=== PATIENT | female | born 1980 | race Caucasian/White ===

== ENCOUNTER → 2019-12-08 08:29 | Outpatient (CLI) | payer OTHER, SELFPAY ==
[2019-12-08 08:34] LABS: Lyme Ab Screen Interpretation REF LAB
[2019-12-08 10:40] LABS: ALB/GLOB Ratio 0.4 RATIO (0.9-2.4); AST(SGOT) 16 U/L (15-37); Alanine Aminotransfer ALT/SGPT 20 U/L (13-56); Albumin, Serum 2.7 g/dL (3.2-5.0); Alkaline Phosphatase 81 U/L (45-117); Anion Gap 3 (5-15); BUN 8 mg/dL (7-18); BUN/Creat Ratio 11.2 RATIO (10-20); Calcium,Total 8.2 mg/dL (8.5-10.1); Chloride 107 mmol/L (98-107); Creatinine, Serum 0.71 mg/dL (0.55-1.02); EST Glomerular Filtration Rate 97 mL/min (>60); Est Glom Filt Rate - Afr Amer 117 mL/min (>60); Globulin 6.5 g/dL (2.2-4.2); Glucose 103 mg/dL (74-106); Potassium 3.6 mmol/L (3.5-5.1); Protein, Total 9.2 g/dL (6.4-8.2); Sodium Level 139 mmol/L (136-145)
[2019-12-09 16:32] LABS: Lyme Scn Total Ab w/Rflx <0.91 ISR (0.00-0.90)
== END ==
PROVIDERS: PCP Family Medicine; Referring Provider Family Medicine; Visit Provider Family Medicine
DX: R68.89 Other general symptoms and signs (principal)
CPT/HCPCS: 36415; 80053; 86618

== ENCOUNTER → 2019-12-15 08:26 | Outpatient (CLI) | payer SELFPAY ==
[2019-12-16 16:08] LABS: PROEL- A/G Ratio 0.5 (0.7-1.7); PROEL- Albumin 2.8 g/dL (2.9-4.4); PROEL- Alpha-1 Globulin 0.2 g/dL (0.0-0.4); PROEL- Alpha-2 Globulin 0.6 g/dL (0.4-1.0); PROEL- Gamma Globulin 3.4 g/dL (0.4-1.8); PROEL- Globulin, Total 5.2 g/dL (2.2-3.9)
== END ==
PROVIDERS: PCP Family Medicine; Referring Provider Family Medicine; Visit Provider Family Medicine
DX: E88.09 Other disorders of plasma-protein metabolism, not elsewhere classified (principal)
CPT/HCPCS: 36415; 84165

== ENCOUNTER 2020-10-05 11:55 | Emergency (ER) | payer OTHER, SELFPAY ==
[2020-10-05 11:55] VITALS: BP 131/74; PULSE 89; RESP 16; TEMP 36.4; O2SAT 99; BMI 26.4
--- NOTE | 2020-10-05 12:08 | CT_ITS ---
STUDY: CTA CHEST REASON FOR EXAM: Female, 40 years old. Painful respirations, si/sx RLE DVT RADIATION DOSAGE (If Supplied By Facility): CTDIvol = ( 5.125 ) mGy, DLP = ( 254.96 ) mGycm TECHNIQUE: The examination was performed with the intravenous administration of IV 75mL Isovue-370. Post-processing of the angiographic images was performed, with multiplanar reformation and 3D reconstruction. Individualized dose optimization techniques were used for this CT. COMPARISON: None. FINDINGS: Bilateral axillary lymph nodes. Normal enhancement of the main pulmonary artery and right and left pulmonary arteries. Normal enhancement of the bilateral peripheral pulmonary arteries. There is no demonstrated pulmonary embolism. Normal thoracic aorta and visualized great vessels. There is no demonstrated aortic dissection. Normal heart and pericardium. Normal mediastinum. Normal hilar regions. Normal visualized trachea and bronchi. The lungs are well expanded. There is evidence of multiple small bilateral pulmonary nodules involving both lungs as well as multiple small cystic spaces throughout both lungs. The differential diagnosis should include leiomyomatosis of the lung. This is usually associated with patients that have uterine leiomyomas. Clinical correlation recommended. Normal pleura. Normal chest wall structures. There are mild degenerative changes of thoracic spine. Small hiatal hernia. CT/CTA Chest W/WO Contrast IMPRESSION: There is no evidence of pulmonary embolism. Multiple noncalcified nodules seen in both lungs with multiple small cystic spaces as described. Leiomyomatosis of the lung should be ruled out. Electronically Signed: Jet Reid MD at 13:52 EDT , Service support ,
--- NOTE | 2020-10-05 12:08 | EKG12_ITS ---
Test Reason : Blood Pressure : / mmHG Vent. Rate : 086 BPM Atrial Rate : 086 BPM P-R Int : 160 ms QRS Dur : 080 ms QT Int : 388 ms P-R-T Axes : 016 047 031 degrees QTc Int : 464 ms Normal sinus rhythm Normal ECG Confirmed by JOSY BOB, LORE ([id number]), commissioning editor ALLISON SEPULVEDA ([id number]) on 10/09/2020 1:57:40 PM Referred By: SHIVANI/KHADAR Confirmed By:LORE FERRIS MD
--- NOTE | 2020-10-05 12:08 | VDLE_ITS ---
Reason For Study: PAIN RIGHT GSV is normal. CFV is compressible, spontaneous, phasic, competent and demonstrates normal augmentation. FV is compressible, spontaneous, phasic, competent and demonstrates normal augmentation. POP V is compressible, spontaneous, phasic, competent and demonstrates normal augmentation. T/P Trunk is compressible. PTV is compressible. RT PerV is compressible. RT SSV is compressible. RT proximal-mid calf ASV are DILATED and partially compressible, consistent with superficial thrombophlebitis. VL/Venous Duplex US, Unilateral Interpretation Summary Deep veins of the right lower extremity are patent and compressible segmentally . There is no evidence of right lower extremity deep vein thrombosis. Valvular competence cely ears intact within the proximal deep venous system on the right . The right great saphenous vein a ppears patent and compressible segmentally. The right small saphenous vein is patent and compress ible. Acute superficial thrombophlebitis is noted in the accessory saphenous vein in the ri ght proximal/mid- calf. Ordering Physician: Jose Brooks Referring Physician: DARNELL XIONG Performed By: Mona Delatorre, ENMA, RVT
--- NOTE | 2020-10-05 12:09 | EDS_ITS ---
HPI History of Present Illness Chief Complaint: Lower Extremity Injury Informant: patient Onset/Context/Timing Onset: Weeks (3) Context: Gradual Onset Timing: Continuous Quality: aching Location: R lower leg, started in calf Current Severity: Moderate Maximum Severity: Moderate Worsened by: nothing Relieved by: nothing Associated Symptoms Associated Symptoms: redness in RLE and swelling; since last night, mild chest pain and sob Narrative Narrative: Pt started getting RLE pain in calf around 3 wks ago, followed by redness and swelling. She had a trip to and from [place] in the car, but that was just around 1 week ago, the symptoms started prior to that trip. No other long travel, immobilization, recent hospitalization, or surgery. No known history of DVT or PE. Seen by sent to the ER for further evaluation out of concern for DVT, PE, or both. Patient denies any palpitations, near syncope or lightheadedness, sweating, or radiation of the tightness in her upper chest which is mildly pleuritic. [facility] Medical History (Updated 10/05/20 @ 15:[address] Jose Brooks MD) Polyarthralgia Home Medications NK 10/05/20 [History Last Taken Unknown] Allergy/AdvReac Type Severity Reaction Status Date / Time No Known Allergies Allergy Unverified 10/05/20 11:57 Surgical History (Updated 10/05/20 @ 12:39 by Nhung Case) H/O tubal ligation Previous section Social History (Updated 10/05/20 @ 12:40 by Nhung Case) housing: house number of children: 7 Smoking Status: Never smoker do you feel safe at home: Yes ROS ROS ED Constitutional Constitutional ED: Denies chills or fever(s) Eyes Eyes: Denies change in vision or diplopia ENT ENT ED: Denies rhinorrhea or sore throat Cardiovascular Cardiovascular: Reports as per HPI and chest pain; Denies palpitations Respiratory/Chest Respiratory/Chest: Reports as per HPI and dyspnea; Denies cough Gastrointestinal Gastrointestinal: Denies abdominal pain, diarrhea or vomiting Genitourinary Genitourinary ED: Denies dysuria or hematuria Musculoskeletal Musculoskeletal: Reports as per HPI and extremity pain; Denies back pain or neck pain Integumentary Reports as per HPI and erythema; Denies abscess Neurologic Neurologic: Denies headache(s), paresthesias or weakness Psychiatric Psychiatric: Denies anxiety or suicidal thoughts EXAM Physical Exam Const Vital Signs: 10/05/20 11:55 10/05/20 13:56 Temperature 97.6 F L Temperature Source Temporal Pulse Rate 89 91 Respiratory Rate 16 18 Blood Pressure 131/74 H Blood Pressure Mean 93 Pulse Ox 99 100 Oxygen Delivery Method Room Air Positive well nourished and well developed General Appearance ED: well developed and NAD HEENT Reports moist mucous membranes normocephalic and atraumatic Eyes PERRL and EOMs intact bilaterally Neck full ROM and supple Resp normal respiratory effort and clear to auscultation bilaterally Cardio regular rate, regular rhythm and no murmurs Rate: tachycardic GI non-tender and non-distended Auscultation: normoactive bowel sounds Palpation: soft Back/Spine no CVA tenderness General Back: other FROM Extremity full ROM Extremity Narrative: Varicose veins are present right lower leg, some of which are erythematous and tender with possible cords. Erythema from foot up to calf, proximal borders are not well circumscribed, erythema is nontender. There is right calf tenderness and 1+ edema to the knee. The left lower extremity is normal without any of these findings. General Extremety ED: Negative for pulses abnormal General Extremity: Negative for pulses abnormal Neuro oriented x3, CN's II-XII intact bilaterally and no sensory deficits noted Sensorium / Orientation: awake and alert Motor Exam: strength 5/5 throughout Skin no rashes or lesions noted and no wounds MDM MDM MDM Narrative Medical decision making narrative: Ultrasound of the right lower extremity shows superficial venous thrombosis only, associated with varicosities of the venous system there, no DVT. Given her chest symptoms, I recommend continuing forward with CT angiography to rule out a DVT that traveled and was no longer visible on the ultrasound, patient was amenable this was negative, it also showed incidental possible leiomyomatosis of the lung which I discussed with the patient. It is unknown if that is related to her current discomfort. I think she is stable to be discharged home with supportive care with regards to the superficial venous thrombosis of her right lower extremity, and close outpatient follow-up, we discussed reasons to return and she is comfortable with that plan. Lab Data Attestation: I reviewed the patient's lab results. Labs: Laboratory Results - last 24 hr 10/05/20 10/05/20 12:17 12:17 WBC 3.4 L RBC 4.24 Hgb 11.4 L Hct 36.5 L MCV 86.1 MCH 26.9 L MCHC 31.2 L RDW Std Deviation 40.5 RDW Coeff of [place] 13.1 Plt Count 237 MPV 8.7 Immature Gran % (Auto) 0.300 Neut % (Auto) 61.2 Lymph % (Auto) 29.7 [place] % (Auto) 3.8 Eos % (Auto) 4.7 Baso % (Auto) 0.3 Absolute Neuts (auto) 2.1 Absolute Lymphs (auto) 1.01 Nucleated RBC % 0 Sodium 137 Potassium 3.3 L Chloride 105 Carbon Dioxide 27.0 Anion Gap 5 BUN 9 Creatinine 0.81 Estim Creat Clear Calc 77.14 Est GFR (MDRD) Af Amer 101 Est GFR (MDRD) Non-Af 84 BUN/Creatinine Ratio 11.1 Glucose 101 Calcium 8.3 L Troponin I < 0.015 Radiography Diagnostic Testing: Radiology Impression Chest CTA 10/05/20 12:08 IMPRESSION: There is no evidence of pulmonary embolism. Multiple noncalcified nodules seen in both lungs with multiple small cystic spaces as described. Leiomyomatosis of the lung should be ruled out. Electronically Signed: Jet Reid MD at 13:52 EDT , Service support , EKG Initial EKG: Attestation: I personally reviewed and interpreted this EKG as follows: Interpretation: Sinus Rhythm and No Acute Injury Pattern Comments: Normal EKG without tachycardia Prior EKG tracings: not available for review Discharge Plan Triage Chief Complaint: Lower Extremity Injury ED Provider: Jose Brooks Dx/Rx/DC Orders Clinical Impression: Chest pain, unspecified, Acute superficial venous thrombosis of right lower extremity, Leiomyomatosis Instructions: ED Chest Pain, Uncertain Cause, ED Endometriosis, ED Thrombophlebitis, Superficial Prescriptions: No Action NK RF: 0 Primary Care Provider: Wai Cleemns Referrals: Wai Clemens MD [Primary Care Provider] - 1 Week Disposition Disposition: Home, self care
[2020-10-05 12:28] LABS: Absolute Lymphocyte Count 1.01 X10^3/uL (0.83-4.51); Absolute Neutrophil Count 2.1 X10^3/uL (2.0-7.7); Basophil# 0.01 X10^3/uL; Basophil% 0.3 % (0-1); Eosinophil# 0.16 X10^3/uL; Eosinophils% 4.7 % (0-5); Hematocrit 36.5 % (37-47); Hemoglobin 11.4 g/dL (12.0-15.0); Lymphocyte # 1.01 X10^3/ul (0.83-4.51); Lymphocyte % 29.7 % (19-41); Mean Corp Hgb Conc 31.2 g/dL (32-36); Mean Corpuscular Hgb 26.9 pg (27.0-32.0); Mean Corpuscular Volume 86.1 fL (81-99); Mean Platelet Vol. 8.7 fl (6.2-12.0); Monocyte# 0.13 X10^3/uL; Monocyte% 3.8 % (0-10); NRBC Flagged by Analyzer 0 % (0-5); Neutrophil # 2.08 X10^3/uL (2.7-7.7); Neutrophil % 61.2 % (47-70); Platelet Count 237 K/mm3 (150-450); RBC Distribution Width CV 13.1 % (11.6-14.6); RBC Distribution Width SD 40.5 fl (35.1-43.9); Red Blood Count 4.24 M/mm3 (4.2-5.4); White Blood Count 3.4 K/mm3 (4.4-11.0)
[2020-10-05 12:42] LABS: Anion Gap 5 (5-15); BUN 9 mg/dL (7-18); BUN/Creat Ratio 11.1 RATIO (10-20); Calcium,Total 8.3 mg/dL (8.5-10.1); Chloride 105 mmol/L (98-107); Creatinine, Serum 0.81 mg/dL (0.55-1.02); EST Glomerular Filtration Rate 84 mL/min (>60); Est Glom Filt Rate - Afr Amer 101 mL/min (>60); Estimated Creatinine Clearance 77.14 ml/min; Glucose 101 mg/dL (74-106); Potassium 3.3 mmol/L (3.5-5.1); Sodium Level 137 mmol/L (136-145)
[2020-10-05 13:56] VITALS: PULSE 91; RESP 18; O2SAT 100
--- NOTE | 2020-10-05 14:34 | NURSING ---
NO OLD EKGS
== END 2020-10-05 15:47 | disposition home or self-care (01) ==
PROVIDERS: Emergency Provider Emergency Medicine; PCP Family Medicine
DX: I82.811 Embolism and thrombosis of superficial veins of right lower extremity (principal); R07.9 Chest pain, unspecified; D38.1 Neoplasm of uncertain behavior of trachea, bronchus and lung; I83.891 Varicose veins of right lower extremity with other complications
CPT/HCPCS: 71275; 80048; 84484; 85025; 93005; 93971; 96360; 96361; 99284; J7030; Q9967; A4216

== ENCOUNTER → 2022-03-11 | Outpatient (CLI) | payer SELFPAY ==
[2022-03-11 16:43] LABS: Absolute Lymphocyte Count 0.66 X10^3/uL (0.83-4.51); Absolute Neutrophil Count 2.5 X10^3/uL (2.0-7.7); Basophil# 0.01 X10^3/uL; Basophil% 0.3 % (0-1); Eosinophil# 0.11 X10^3/uL; Eosinophils% 3.2 % (0-5); Hematocrit 34.4 % (37-47); Lymphocyte # 0.66 X10^3/ul (0.83-4.51); Lymphocyte % 19.2 % (19-41); Mean Corpuscular Hgb 26.3 pg (27.0-32.0); Mean Corpuscular Volume 82.1 fL (81-99); Mean Platelet Vol. 9.5 fl (6.2-12.0); Monocyte# 0.14 X10^3/uL; Monocyte% 4.1 % (0-10); NRBC Flagged by Analyzer 0 % (0-5); Neutrophil % 72.9 % (47-70); Platelet Count 273 K/mm3 (150-450); RBC Distribution Width CV 13.9 % (11.6-14.6); RBC Distribution Width SD 41.1 fl (35.1-43.9); Red Blood Count 4.19 M/mm3 (4.2-5.4); White Blood Count 3.4 K/mm3 (4.4-11.0)
[2022-03-11 17:25] LABS: Erythrocyte Sedimentation Rate 98 mm/hr (0-30)
[2022-03-11 17:28] LABS: ALB/GLOB Ratio 0.4 RATIO (0.9-2.4); AST(SGOT) 38 U/L (15-37); Alanine Aminotransfer ALT/SGPT 47 U/L (13-56); Albumin, Serum 2.7 g/dL (3.2-5.0); Alkaline Phosphatase 102 U/L (45-117); Anion Gap 4 (5-15); BUN 13 mg/dL (7-18); BUN/Creat Ratio 15.3 RATIO (10-20); Calcium,Total 8.5 mg/dL (8.5-10.1); Chloride 105 mmol/L (98-107); Creatinine, Serum 0.85 mg/dL (0.55-1.02); EST Glomerular Filtration Rate 78 mL/min (>60); Est Glom Filt Rate - Afr Amer 95 mL/min (>60); Globulin 6.9 g/dL (2.2-4.2); Glucose 98 mg/dL (74-106); Potassium 3.4 mmol/L (3.5-5.1); Protein, Total 9.6 g/dL (6.4-8.2); Sodium Level 135 mmol/L (136-145)
[2022-03-13 15:08] LABS: Anti-Centromere B Ab <0.2 AI (0.0-0.9); Anti-Chromatin >8.0 AI (0.0-0.9); Anti-Jo <0.2 AI (0.0-0.9); Anti-Scleroderma-70 AB <0.2 AI (0.0-0.9); RNP Ab 1.4 AI (0.0-0.9); SJOGREN'S Anti-SS-A test > 8.0 AI (0.0-0.9); SJOGREN'S Anti-SS-B test > 8.0 AI (0.0-0.9); Smith Ab 0.6 AI (0.0-0.9)
[2022-03-13 16:10] LABS: Anti-dsDNA Ab 6 IU/mL (0-9)
[2022-03-14 15:08] LABS: Cytoplasmic Ab (C-ANCA) 1:40 titer (Neg:<1:20)
[2022-03-15 21:01] LABS: CCP IgG Antibodies 3 units (0-19)
== END | disposition home or self-care (01) ==
LOC: BIMLAB 16:06
PROVIDERS: PCP Family Medicine; Visit Provider Internal Medicine
DX: M25.50 Pain in unspecified joint (principal)
CPT/HCPCS: 36415; 80053; 85025; 85652; 86200; 86225; 86235; 86256; 86431

== ENCOUNTER 2022-03-24 16:35 | Outpatient (CLI) | payer SELFPAY, OTHER ==
--- NOTE | 2022-03-24 17:00 | CT_ITS ---
STUDY: CT CHEST WITH T WITHOUT CONTRAST REASON FOR EXAM: Female, 41 years old. Pleuritic chest pain and shortness of breath. History of lung nodule RADIATION DOSAGE (If Supplied By Facility): CTDIvol = ( 8.40 ) mGy, DLP = ( 616.68 ) mGycm TECHNIQUE: Transaxial imaging was performed pre-and post contrast administration of 100ML ISOVUE 370. Multiplanar coronal and sagittal images were reformatted. Individualized dose optimization techniques were used for this CT. COMPARISON: CTA of the chest, October 05, 2020. FINDINGS: The lungs are well-expanded. There are air cysts throughout both lungs. There are small nodules seen in the posterior left upper lobe and superior segment of the right lower lobe. There is a larger mildly spiculated mass measuring approximately 9 mm in the right lower lobe on image 51 of series 5 which appears to contain small foci of gas. There is an adjacent nodular density with internal gas measuring 8 mm on image 53. There is a 6 mm soft tissue nodule in the left lower lobe seen on image 45 with questionable internal gas. A 5 mm soft tissue nodule seen peripherally in the posterior left lower lobe on image 58. Also on image 58 is an ill-defined nodular density in the right middle lobe measuring 4 mm. There is no demonstrated pleural abnormality. Normal heart and pericardium. No coronary artery calcification Nonspecific subcentimeter mediastinal and hilar lymphadenopathy. Normal enhanced and unenhanced pulmonary arteries. Normal aorta arch and descending thoracic aorta. Normal osseous structures. There are enlarged bilateral axillary lymph nodes. There is no demonstrated abnormality of the visualized upper abdomen. CT/Chest W/WO Contrast IMPRESSION: Stable bilateral pulmonary nodules and multiple air cysts unchanged from October 05, 2020. Fleischner Society Guidelines (MacMahon, et al. Radiology 2017; 284(1):228-43) suggest no follow-up is necessary for patients with low or high risk of malignancy. Electronically Signed: Noah Alfaro DO at 18:58 EST ,
== END 2022-03-24 23:59 | disposition home or self-care (01) ==
PROVIDERS: PCP Internal Medicine; Referring Provider Internal Medicine; Visit Provider Internal Medicine
DX: R76.8 Other specified abnormal immunological findings in serum (principal); R07.81 Pleurodynia; R06.02 Shortness of breath; R91.8 Other nonspecific abnormal finding of lung field
CPT/HCPCS: 36415; 71270; Q9967

== ENCOUNTER 2022-04-08 14:17 | Outpatient (CLI) | payer OTHER, SELFPAY ==
[2022-04-08 15:11] LABS: Absolute Neutrophil Count 2.3 X10^3/uL (2.0-7.7); Basophil# 0.01 X10^3/uL; Basophil% 0.3 % (0-1); Eosinophil# 0.07 X10^3/uL; Eosinophils% 2.2 % (0-5); Hematocrit 34.9 % (37-47); Hemoglobin 11.3 g/dL (12.0-15.0); Lymphocyte % 21.9 % (19-41); Mean Corp Hgb Conc 32.4 g/dL (32-36); Mean Corpuscular Hgb 26.8 pg (27.0-32.0); Mean Corpuscular Volume 82.7 fL (81-99); Mean Platelet Vol. 8.8 fl (6.2-12.0); Monocyte# 0.15 X10^3/uL; Monocyte% 4.7 % (0-10); NRBC Flagged by Analyzer 0 % (0-5); Neutrophil # 2.26 X10^3/uL (2.7-7.7); Neutrophil % 70.6 % (47-70); Platelet Count 231 K/mm3 (150-450); RBC Distribution Width CV 14.5 % (11.6-14.6); RBC Distribution Width SD 43.4 fl (35.1-43.9); Red Blood Count 4.22 M/mm3 (4.2-5.4); White Blood Count 3.2 K/mm3 (4.4-11.0)
[2022-04-08 15:39] LABS: ALB/GLOB Ratio 0.4 RATIO (0.9-2.4); AST(SGOT) 28 U/L (15-37); Alanine Aminotransfer ALT/SGPT 46 U/L (13-56); Albumin, Serum 2.8 g/dL (3.2-5.0); Alkaline Phosphatase 93 U/L (45-117); Anion Gap 7 (5-15); BUN 13 mg/dL (7-18); BUN/Creat Ratio 16.8 RATIO (10-20); Calcium,Total 8.1 mg/dL (8.5-10.1); Chloride 101 mmol/L (98-107); Creatinine, Serum 0.77 mg/dL (0.55-1.02); EST Glomerular Filtration Rate 88 mL/min (>60); Est Glom Filt Rate - Afr Amer 106 mL/min (>60); Globulin 6.3 g/dL (2.2-4.2); Glucose 88 mg/dL (74-106); Lipase 121 U/L (73-393); Potassium 3.4 mmol/L (3.5-5.1); Protein, Total 9.1 g/dL (6.4-8.2); Sodium Level 136 mmol/L (136-145)
== END 2022-04-08 23:59 | disposition home or self-care (01) ==
LOC: BIMLAB 14:18
PROVIDERS: PCP Internal Medicine; Referring Provider Internal Medicine; Visit Provider Internal Medicine
DX: R10.11 Right upper quadrant pain (principal)
CPT/HCPCS: 36415; 80053; 83690; 85025

== ENCOUNTER 2022-04-12 08:05 | Outpatient (CLI) | payer SELFPAY, OTHER ==
--- NOTE | 2022-04-12 08:12 | US_ITS ---
STUDY: ABDOMINAL ULTRASOUND - RIGHT UPPER QUADRANT REASON FOR VISIT: Female, 42 years old RUQ pain TECHNIQUE: Ultrasound evaluation of the right upper quadrant was performed with real-time and static holly-scale imaging. TECHNICAL QUALITY: Adequate. COMPARISON: None. FINDINGS: Liver: The liver measures 17.6 cm. There is normal echogenicity of the liver. The bile ducts are within normal limits. There is hepatic color flow. The direction of portal flow is hepatopetal. There is no demonstrated mass lesion. Gallbladder: Normal distended gallbladder. The gallbladder wall measures 2 mm. There is a negative sonographic Jones''s sign. There is no pericholecystic fluid. There are no gallstones. Common Bile Duct (C.B.D.): The common bile duct measures 3.8 mm. Pancreas: Nonvisualization of the pancreatic tail due to overlying bowel gas. Normal visualized portions of the pancreas. There is normal echogenicity of the pancreas. There is no demonstrated pancreatic mass or cyst. Right Kidney: Normal size of the right kidney. The right kidney measures 11.1 x 6 x 5.4 cm. Normal renal cortex. The right cortex measures 1.1 cm. There is no demonstrated renal mass or cyst. There is no right hydronephrosis. US/Gallbladder IMPRESSION: Normal right upper quadrant ultrasound examination. Electronically Signed: Vincenzo Angel MD at 11:16 EST ,
== END 2022-04-12 23:59 | disposition home or self-care (01) ==
LOC: US 08:09
PROVIDERS: PCP Internal Medicine; Referring Provider Internal Medicine; Visit Provider Internal Medicine
DX: R10.11 Right upper quadrant pain (principal)
CPT/HCPCS: 76705

== ENCOUNTER → 2022-04-30 | Outpatient (CLI) | payer OTHER, SELFPAY ==
[2022-04-30 11:01] LABS: Color, Urine Yellow (Yellow); Glucose, Dipstick Normal (Normal); Ketone-Dipstick Negative (Negative); Leukocyte Esterase-Dipstick 25 /ul (Negative); Nitrite-Dipstick Negative (Negative); Occult Blood-Urine Negative /ul (Negative); Protein-Dipstick Negative (Negative); Urine Bilirubin Dipstick Negative (Negative); Urine Clarity Clear (Clear); Urine Urobilinogen Normal (Normal)
[2022-04-30 11:23] LABS: Microalbumin,Random Urine 6.4 mg/L (NO RANGE EST.); Microalbumin:Creatinine Ratio 7.7 mg/g CRE (<30 mg/g CRE)
== END | disposition home or self-care (01) ==
LOC: LABSPEC 08:39
PROVIDERS: PCP Internal Medicine; Referring Provider Internal Medicine; Visit Provider Internal Medicine
DX: M35.9 Systemic involvement of connective tissue, unspecified (principal)
CPT/HCPCS: 81002; 82043; 82570

== ENCOUNTER → 2022-05-07 | Outpatient (CLI) | payer OTHER, SELFPAY ==
[2022-05-07 11:43] LABS: EXAGEN MAILED SPECIMEN
[2022-05-07 12:43] LABS: Color, Urine Yellow (Yellow); Erythrocyte Sedimentation Rate 66 mm/hr (0-30); Glucose, Dipstick Normal (Normal); International Normalized Ratio 1.1; Ketone-Dipstick Negative (Negative); Leukocyte Esterase-Dipstick 25 /ul (Negative); Nitrite-Dipstick Negative (Negative); Occult Blood-Urine Negative /ul (Negative); Partial Thromboplast Time 24.3 Seconds (24.1-36.2); Protein-Dipstick 15 mg/dl (Negative); Urine Bilirubin Dipstick Negative (Negative); Urine Clarity Sl. Cloudy (Clear); Urine Urobilinogen Normal (Normal)
[2022-05-07 12:50] LABS: Absolute Lymphocyte Count 0.71 X10^3/uL (0.83-4.51); Absolute Neutrophil Count 1.2 X10^3/uL (2.0-7.7); Basophil# 0.01 X10^3/uL; Basophil% 0.5 % (0-1); Eosinophils% 4.6 % (0-5); Hematocrit 33.6 % (37-47); Hemoglobin 10.4 g/dL (12.0-15.0); Lymphocyte # 0.71 X10^3/ul (0.83-4.51); Lymphocyte % 32.4 % (19-41); Mean Corpuscular Hgb 25.6 pg (27.0-32.0); Mean Corpuscular Volume 82.6 fL (81-99); Mean Platelet Vol. 9.5 fl (6.2-12.0); Monocyte# 0.13 X10^3/uL; Monocyte% 5.9 % (0-10); NRBC Flagged by Analyzer 0 % (0-5); Neutrophil # 1.23 X10^3/uL (2.7-7.7); Neutrophil % 56.1 % (47-70); Platelet Count 339 K/mm3 (150-450); RBC Distribution Width CV 13.8 % (11.6-14.6); RBC Distribution Width SD 41.1 fl (35.1-43.9); Red Blood Count 4.07 M/mm3 (4.2-5.4); White Blood Count 2.2 K/mm3 (4.4-11.0)
[2022-05-07 13:05] LABS: Protein, Urine (Random) 15.4 mg/dL (<11.9); Protein:Creat Ratio 209 mg/g CRE (0-200)
[2022-05-07 13:08] LABS: ALB/GLOB Ratio 0.4 RATIO (0.9-2.4); AST(SGOT) 38 U/L (15-37); Alanine Aminotransfer ALT/SGPT 57 U/L (13-56); Albumin, Serum 2.6 g/dL (3.2-5.0); Alkaline Phosphatase 179 U/L (45-117); Anion Gap 5 (5-15); BUN 11 mg/dL (7-18); BUN/Creat Ratio 16.4 RATIO (10-20); Calcium,Total 8.7 mg/dL (8.5-10.1); Chloride 105 mmol/L (98-107); Creatinine, Serum 0.67 mg/dL (0.55-1.02); EST Glomerular Filtration Rate 103 mL/min (>60); Est Glom Filt Rate - Afr Amer 125 mL/min (>60); Globulin 7.1 g/dL (2.2-4.2); Glucose 86 mg/dL (74-106); Potassium 3.8 mmol/L (3.5-5.1); Protein, Total 9.7 g/dL (6.4-8.2); Sodium Level 138 mmol/L (136-145)
[2022-05-07 13:39] LABS: Hepatitis B Surface Antibody Non-Reactive; Hepatitis B Surface Antigen Non-Reactive (Nonreactive); Hepatitis C Antibody Non-Reactive (Nonreactive)
[2022-05-10 15:07] LABS: Dilute Prothrombin Time (dPT) 36.7 sec (0.0-47.6); Dilute Russell Viper Venom 36.4 sec (0.0-47.0); PTT-LA 30.4 sec (0.0-51.9); Thrombin Time 17.2 sec (0.0-23.0); dPT Confirm Ratio 1.01 Ratio (0.00-1.34)
[2022-05-10 20:07] LABS: Hexagonal Phase Phospholipid 3 sec (0-11); Thrombin Time 16.4 sec (0.0-23.0)
[2022-05-11 12:11] LABS: Interpretation Comment: (.)
[2022-05-13 07:48] LABS: CPK Total, Creatine Kinase 27 U/L (26-192)
== END | disposition home or self-care (01) ==
PROVIDERS: PCP Internal Medicine; Referring Provider Internal Medicine Rheumatology; Visit Provider Internal Medicine Rheumatology
DX: M05.79 Rheumatoid arthritis with rheumatoid factor of multiple sites without organ or systems involvement (principal); M35.00 Sjogren syndrome, unspecified; R76.8 Other specified abnormal immunological findings in serum; I83.93 Asymptomatic varicose veins of bilateral lower extremities
CPT/HCPCS: 36415; 80053; 81002; 82550; 82570; 84156; 85025; 85598; 85610; 85652; 85670; 85730; 86140; 86706; 86803; 87340

== ENCOUNTER → 2022-05-20 | Outpatient (CLI) | payer SELFPAY, OTHER ==
--- NOTE | 2022-05-20 12:51 | ECHOD_ITS ---
Reason For Study: SOB w/minimal exertion Procedure This was a 2D Doppler, Color Flow transthoracic echocardiogram. Exam performed in department. Left Ventricle Normal LV size. Left ventricular systolic function is normal. The estimated ejection fraction is 60 %. Normal diastology for age. No regional wall motion abnormalities noted. Right Ventricle Normal RV size. Normal systolic function. Atria Normal left atrium. Normal right atrium. Mitral Valve Normal mitral valve. Tricuspid Valve Normal tricuspid valve. Mild tricuspid valve insufficiency. Pulmonary artery systolic pressure is 30 mmHg. Aortic Valve Normal aortic valve. Trisinus/trileaflet aortic valve. Pulmonic Valve Normal pulmonic valve. Great Vessels Normal aortic root. The pulmonary artery is normal size. Normal inferior vena cava. Pericardium/Pleural No pericardial effusion. MMode/2D Measurements & Calculations LVIDd: 3.9 cm IVSd: 0.76 cm Ao root diam: 2.8 cm LVIDs: 2.7 cm LVPWd: 0.81 cm LA dimension: 3.8 cm RVDd: 3.6 cm FS: 31.4 % LAV(MOD-bp): 38.6 ml LA A4 area: 16.6 cm2 RA A4 area: 15.1 cm2 LAV(MOD-bp) Indexed: 23.2 ml/m2 LAV(MOD-sp2): 31.9 ml LAV(MOD-sp4): 41.4 ml Time Measurements MV dec time: 0.16 sec Doppler Measurements & Calculations MV E max andrea: 95.7 cm/sec Lat Peak E' Andrea: 17.4 cm/sec Med Peak E' Andrea: 13.5 cm/sec MV A max andrea: 43.3 cm/sec E/E' lat: 5.5 E/E' med: 7.1 MV E/A: 2.2 MV V2 max: 103.3 cm/sec Ao V2 max: 111.8 cm/sec LV V1 max: 95.7 cm/sec MV max P.3 mmHg Ao max P.0 mmHg LV V1 max P.7 mmHg MV V2 mean: 60.8 cm/sec LV V1 mean P.3 mmHg MV mean P.7 mmHg LV V1 mean: 71.9 cm/sec MV V2 VTI: 18.4 cm LV V1 VTI: 19.5 cm MR max andrea: 352.5 cm/sec PA V2 max: 106.0 cm/sec TR max andrea: 256.2 cm/sec MR max P.7 mmHg TR max P.3 mmHg ECHO/Echo Complete Interpretation Summary Normal LV size. Left ventricular systolic function is normal. The estimated ejection fraction is 60 %. Normal diastology for age. Structurally normal valves. Ordering Physician: Evita Sanchez Performed By: Jak Corcoran RCS
== END | disposition home or self-care (01) ==
PROVIDERS: PCP Internal Medicine; Visit Provider Internal Medicine Rheumatology
DX: R06.02 Shortness of breath (principal); M05.79 Rheumatoid arthritis with rheumatoid factor of multiple sites without organ or systems involvement; M35.00 Sjogren syndrome, unspecified; R76.8 Other specified abnormal immunological findings in serum; I83.93 Asymptomatic varicose veins of bilateral lower extremities
CPT/HCPCS: 93306

== ENCOUNTER → 2022-06-23 | Outpatient (CLI) | payer SELFPAY ==
[2022-06-23 15:33] LABS: Absolute Lymphocyte Count 0.97 X10^3/uL (0.83-4.51); Absolute Neutrophil Count 3.1 X10^3/uL (2.0-7.7); Basophil# 0.01 X10^3/uL; Basophil% 0.2 % (0-1); Eosinophil# 0.06 X10^3/uL; Eosinophils% 1.4 % (0-5); Hematocrit 40.1 % (37-47); Hemoglobin 12.2 g/dL (12.0-15.0); Lymphocyte # 0.97 X10^3/ul (0.83-4.51); Lymphocyte % 22.1 % (19-41); Mean Corp Hgb Conc 30.4 g/dL (32-36); Mean Corpuscular Hgb 25.4 pg (27.0-32.0); Mean Corpuscular Volume 83.4 fL (81-99); Mean Platelet Vol. 9.3 fl (6.2-12.0); Monocyte% 4.6 % (0-10); NRBC Flagged by Analyzer 0 % (0-5); Neutrophil # 3.13 X10^3/uL (2.7-7.7); Neutrophil % 71.5 % (47-70); Platelet Count 270 K/mm3 (150-450); RBC Distribution Width CV 15.8 % (11.6-14.6); RBC Distribution Width SD 47.9 fl (35.1-43.9); Red Blood Count 4.81 M/mm3 (4.2-5.4); White Blood Count 4.4 K/mm3 (4.4-11.0)
[2022-06-23 16:08] LABS: ALB/GLOB Ratio 0.5 RATIO (0.9-2.4); AST(SGOT) 13 U/L (15-37); Alanine Aminotransfer ALT/SGPT 29 U/L (13-56); Albumin, Serum 2.9 g/dL (3.2-5.0); Alkaline Phosphatase 78 U/L (45-117); Anion Gap 5 (5-15); BUN 14 mg/dL (7-18); BUN/Creat Ratio 18.7 RATIO (10-20); Calcium,Total 8.8 mg/dL (8.5-10.1); Chloride 104 mmol/L (98-107); Creatinine, Serum 0.75 mg/dL (0.55-1.02); EST Glomerular Filtration Rate 91 mL/min (>60); Est Glom Filt Rate - Afr Amer 110 mL/min (>60); Globulin 6.3 g/dL (2.2-4.2); Glucose 85 mg/dL (74-106); Potassium 3.4 mmol/L (3.5-5.1); Protein, Total 9.2 g/dL (6.4-8.2); Sodium Level 137 mmol/L (136-145)
== END | disposition home or self-care (01) ==
PROVIDERS: PCP Internal Medicine; Referring Provider Internal Medicine Rheumatology; Visit Provider Internal Medicine Rheumatology
DX: M35.1 Other overlap syndromes (principal); M06.4 Inflammatory polyarthropathy; R76.8 Other specified abnormal immunological findings in serum; I83.93 Asymptomatic varicose veins of bilateral lower extremities
CPT/HCPCS: 36415; 80053; 85025

== ENCOUNTER → 2022-08-14 | Outpatient (CLI) | payer SELFPAY, OTHER ==
[2022-08-14 12:05] LABS: D-Dimer Quantitative (DVT/PE) 2.09 FEU/ug/m (0.27-0.49)
--- NOTE | 2022-08-14 13:34 | VDLE_ITS ---
Reason For Study: Swelling RIGHT GSV is normal. CFV is compressible, spontaneous, phasic, competent and demonstrates normal augmentation. FV is compressible, spontaneous, phasic, competent and demonstrates normal augmentation. POP V is compressible, spontaneous, phasic, competent and demonstrates normal augmentation. T/P Trunk is compressible. PTV is compressible. RT PerV is compressible. Acute deep vein thrombosis is noted in the GastorcV. It is dilated and NONCOMPRESSIBLE. Varicose veins noted in the right prox calf that are partially NONCOMPRESSIBLE. Procedure This is a venous duplex using B-mode, color flow and spectral Doppler. Exam performed in department. A preliminary report was called and/or faxed to Radha and Dr. Bird. VL/Venous Duplex US, Unilateral Interpretation Summary Acute deep venous thrombosis right gastrocnemius vein Superficial thrombophlebitis varicose veins right proximal calf Patent and compressible right great saphenous vein Ordering Physician: Lele Bird Referring Physician: Sharron Manning Performed By: Neha Tran RVT
== END | disposition home or self-care (01) ==
PROVIDERS: PCP Internal Medicine; Referring Provider Internal Medicine; Visit Provider Internal Medicine
DX: I82.811 Embolism and thrombosis of superficial veins of right lower extremity (principal); M35.1 Other overlap syndromes; R93.89 Abnormal findings on diagnostic imaging of other specified body structures
CPT/HCPCS: 36415; 85379; 93971

== ENCOUNTER → 2022-08-18 | Outpatient (CLI) | payer OTHER, SELFPAY ==
[2022-08-18 10:00] LABS: Erythrocyte Sedimentation Rate 31 mm/hr (0-30)
[2022-08-18 10:03] LABS: Absolute Lymphocyte Count 0.64 X10^3/uL (0.83-4.51); Absolute Neutrophil Count 3.7 X10^3/uL (2.0-7.7); Basophil# 0.02 X10^3/uL; Basophil% 0.4 % (0-1); Eosinophil# 0.05 X10^3/uL; Eosinophils% 1.1 % (0-5); Hematocrit 39.2 % (37-47); Hemoglobin 11.9 g/dL (12.0-15.0); Lymphocyte # 0.64 X10^3/ul (0.83-4.51); Lymphocyte % 13.9 % (19-41); Mean Corp Hgb Conc 30.4 g/dL (32-36); Mean Corpuscular Hgb 26.2 pg (27.0-32.0); Mean Corpuscular Volume 86.3 fL (81-99); Mean Platelet Vol. 9.3 fl (6.2-12.0); Monocyte# 0.19 X10^3/uL; Monocyte% 4.1 % (0-10); NRBC Flagged by Analyzer 0 % (0-5); Neutrophil # 3.69 X10^3/uL (2.7-7.7); Neutrophil % 80.3 % (47-70); Platelet Count 257 K/mm3 (150-450); RBC Distribution Width CV 15.1 % (11.6-14.6); RBC Distribution Width SD 47.7 fl (35.1-43.9); Red Blood Count 4.54 M/mm3 (4.2-5.4); White Blood Count 4.6 K/mm3 (4.4-11.0)
[2022-08-18 10:18] LABS: Albumin, Serum 2.8 g/dL (3.2-5.0); BUN 12 mg/dL (7-18); Creatinine, Serum 0.71 mg/dL (0.55-1.02); EST Glomerular Filtration Rate 97 mL/min (>60); Est Glom Filt Rate - Afr Amer 117 mL/min (>60); Glucose 89 mg/dL (74-106); Protein, Total 8.6 g/dL (6.4-8.2)
[2022-08-18 10:19] LABS: ALB/GLOB Ratio 0.5 RATIO (0.9-2.4); AST(SGOT) 35 U/L (15-37); Alanine Aminotransfer ALT/SGPT 46 U/L (13-56); Alkaline Phosphatase 112 U/L (45-117); Anion Gap 2 (5-15); Calcium,Total 8.7 mg/dL (8.5-10.1); Chloride 107 mmol/L (98-107); Globulin 5.8 g/dL (2.2-4.2); Potassium 3.3 mmol/L (3.5-5.1); Sodium Level 137 mmol/L (136-145)
== END | disposition home or self-care (01) ==
PROVIDERS: PCP Nurse Practitioner Family; Referring Provider Internal Medicine Rheumatology; Visit Provider Internal Medicine Rheumatology
DX: M06.4 Inflammatory polyarthropathy (principal); M35.1 Other overlap syndromes; Z79.899 Other long term (current) drug therapy; R76.8 Other specified abnormal immunological findings in serum
CPT/HCPCS: 36415; 80053; 85025; 85652; 86140

== ENCOUNTER → 2022-08-19 | Outpatient (CLI) | payer SELFPAY ==
--- NOTE | 2022-08-19 14:21 | PFTCOMP ---
COMPLETE PULMONARY FUNCTION TEST INTERPRETATION Brief HPI: Patient is a 42-year-old female, currently under the care of Dr. Bird, who presents to [facility] for complete pulmonary function tests secondary to diagnosis of overlap syndrome. Respiratory therapist reports good effort and reproducible results. Patient did report rib pain on the day of testing secondary to recent CPR Interpretation: Forced expiration spirometry shows a moderately severe large airways obstructive ventilatory defect with an FEV1 of 54% predicted. There is a significant bronchodilator response in FVC and FEV1 by strict ATS criteria. Spirograms are of good quality and plateau slowly, indicating slowly emptying areas of the lungs. The respiratory flow volume loop shows decreased expiratory flow rates at all lung volumes consistent with airway obstruction. Lung volumes by body plethysmography show a normal total lung capacity at 4.49 L, 93% predicted. FRC and RV are elevated out of proportion. Lung volume measurements are consistent with air-trapping. Diffusion capacity by carbon monoxide is decreased at 67% predicted. The airway resistance is normal. No previous pulmonary function tests were available for review. Impression: Partially reversible moderately severe obstructive ventilatory defect resulting in air trapping and a symmetric reduction in diffusion capacity
== END | disposition home or self-care (01) ==
LOC: PSN 06:48
PROVIDERS: PCP Nurse Practitioner Family; Referring Provider Internal Medicine; Visit Provider Internal Medicine
DX: R93.89 Abnormal findings on diagnostic imaging of other specified body structures (principal); M35.1 Other overlap syndromes
CPT/HCPCS: 94060; 94726; 94729

== ENCOUNTER → 2024-08-11 | Outpatient (CLI) | payer SELFPAY ==
--- NOTE | 2024-08-11 10:55 | RAD_ITS ---
EXAM: XR Chest, 2 Views CLINICAL INDICATION: PFO TECHNIQUE: Frontal and lateral views of the chest. COMPARISON: No relevant prior studies available. FINDINGS: LUNGS AND PLEURAL SPACES: Subtle patchy airspace disease of the lingula and right middle lobe could be developing pneumonia. This could be further evaluated with CT. No pneumothorax. HEART: Unremarkable. No cardiomegaly. MEDIASTINUM: Unremarkable. Normal mediastinal contour. BONES/JOINTS: Unremarkable. No acute fracture. RAD/Chest PA and Lateral IMPRESSION: Subtle patchy airspace disease of the lingula and right middle lobe could be de veloping pneumonia. This could be further evaluated with CT. Reading Location: [facility]
[2024-08-11 11:21] LABS: Absolute Lymphocyte Count 0.49 X10^3/uL (0.83-4.51); Absolute Neutrophil Count 2.3 X10^3/uL (2.0-7.7); Basophil# 0.01 X10^3/uL; Basophil% 0.3 % (0-1); Eosinophil# 0.06 X10^3/uL; Hematocrit 33.5 % (37-47); Hemoglobin 10.3 g/dL (12.0-15.0); Lymphocyte # 0.49 X10^3/ul (0.83-4.51); Lymphocyte % 16.5 % (19-41); Mean Corp Hgb Conc 30.7 g/dL (32-36); Mean Corpuscular Hgb 25.4 pg (27.0-32.0); Mean Corpuscular Volume 82.7 fL (81-99); Mean Platelet Vol. 9.4 fl (6.2-12.0); Monocyte% 3.4 % (0-10); NRBC Flagged by Analyzer 0 % (0-5); Neutrophil % 77.5 % (47-70); POSITIVE DIFFERENTIAL YES; Platelet Count 288 K/mm3 (150-450); RBC Distribution Width CV 14.7 % (11.6-14.6); RBC Distribution Width SD 44.7 fl (35.1-43.9); Red Blood Count 4.05 M/mm3 (4.2-5.4)
[2024-08-11 11:25] LABS: Differential Indicated SCAN CRITERIA MET
[2024-08-11 11:26] LABS: International Normalized Ratio 1.1; Prothrombin Time (Protime)PT. 14.8 SECONDS (11.7-14.9)
[2024-08-11 12:21] LABS: Anion Gap 9 (5-15); BUN 12 mg/dL (4-19); Carbon Dioxide 25.1 mmol/L (21.0-32.0); Chloride 102 mmol/L (98-108); Creatinine, Serum 0.63 mg/dL (0.70-1.20); EST Glomerular Filtration Rate 113 (>60); Glucose 93 mg/dL (70-99); Potassium 4.2 mmol/L (3.3-5.1); Sodium Level 135 mmol/L (133-145)
== END | disposition home or self-care (01) ==
PROVIDERS: PCP Nurse Practitioner Family
DX: Z01.812 Encounter for preprocedural laboratory examination (principal); Q21.12 Patent foramen ovale
CPT/HCPCS: 36415; 71046; 80048; 85025; 85610

== ENCOUNTER → 2024-10-12 | Outpatient (CLI) | payer OTHER, SELFPAY ==
--- OUTSIDE RECORDS SUMMARY | 2024-10-12 07:36 | XMS RPT_ITS | CCD ---
Author Organization [facility] Care Team Providers Care Studio Operation Engineer Name Role Phone Dr. Wai Clemens Primary Care Provider [phone] Dr. Wai Clemens Referring Provider [phone] Sharron Manning Attending Provider Dr. Sharron Manning Primary Care Provider Dr. Sharron Manning Referring Provider [phone] Dr. Juventino Yin Attending Provider Charito Monet CNP Primary Care Provider [phone] Anders BOB, Roc Valentin Primary Care Provider ROC MCNAMARAOUNBren Referring Unavaila ble ANDERS, ROC SUSUNITAOUNG Primary Care Unavaila ble ANDERS, ROC SUEYOUNG Admitting Unavaila ble ANDERS, ROC SUEYOUNG Primary Care Unavaila ble ANDERS, ROC SUSUNITAOUNG Referring Unavaila ble HU LEDESMA Attending Unavailable ROC MCNAMARA Admitting Unavaila ble TOREY NELSON Attending Unavailable ROC MCNAMARA Primary Care Unavaila ble CHARITO MONET Primary Care Unavailable JUVENTINO YIN Referring Unavailable JAMES HART Attending CHARITO Maldonado Referring Unavailable JAMES HRAT Attending CHARITO Maldonado Primary Care Unavailable CHARITO MONET CNP Consulting Unavailable CHARITO MONET CNP Attending Unavailable CHARITO MONET CNP Admitting Unavailable CHARITO MONET CNP Primary Care Unavailable PROVIDER, UNKNOWN Consulting Unavailable Chiki APPLICATION RELEASE MANAGER - WALLPAPER INSPECTOR AND SHIPPER, Charito Primary Care Provide r ROSA MARIA MILLER Referring Unavailable CHARITO MONET Primary Care Unavailable ROSA MARIA MILLER Attending Unavailable CHARITO MONET Referring Unavailable CHARITO MONET Primary Care Unavailable CHARITO MONET Primary Care Unavailable Chiki 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-C, Charito Arenas Primary Care Provider Un available Chiik 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-C, Charito Arenas Attending Provider Unava ilable Chiki 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-C, Charito Arenas Referring Provider Unava ilable MONIKA SCHNEIDER Attending Provider MONIKA SCHNEIDER Referring Provider Chiki 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, Charito Arenas Attending Unavailabl carol Monet 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, Charito Arenas Referring Unavailabl e Chiki MIKE, Charito Arenas Primary Care Unavailabl e Chiki 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, Charito Arenas Attending Unavailabl e Chiki 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, Charito Arenas Primary Care Unavailabl e Chiki 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, Charito Arenas Attending Unavailsyed Monet 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, Charito Arenas Referring Unavailabl e Chiki 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, Charito Arenas Primary Care Unavailabl e Chiki 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, Charito Arenas Primary Care UnavailJAMIE Ramos Attending Unavailable Chiki 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, Charito Arenas Attending Unavailsyed Monet 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, Charito Arenas Primary Care Unavailabl e Chiki MIKE, Charito Arenas Primary Care Unavailabl e Chiki MIKE, Charito Arenas Attending Unavailabl carol Monet NP, Charito Arenas Referring Unavailabl JAMIE Braden Referring Unavailable Chiki MIKE, Charito Arenas Primary Care UnavailJAMIE Ramos Attending Unavailable Chiki 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, Charito Arenas Attending Unavailabl carol Monet 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, Charito Arenas Referring Unavailabl carol Monet 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, Charito Arenas Primary Care Unavailabl e Chiki 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, Charito Arenas Attending Unavailsyed Monet 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, Charito Arenas Primary Care Unavailabl e Medications Current Medications Medication Drug Class(es) Dates Sig (Normalized) Sig (Original) apixaban 5 mg oral tablet (10 sources) Factor Xa Inhibitor Start: 08-14-2022 End: 09-08-2022 take 1 tablet by mouth twice daily Eliquis 5 MG tablet Take 1 tablet by mouth 2 times daily. 09/09/2022 Active atorvastatin 20 mg oral tablet (2 sources) HMG-CoA Reductase Inhibitor Start: 09-08-2022 take 1 tablet by mouth at bedtime Atorvastatin 20 mg tablet Active 20 mg PO AT BEDTIME September 08, 2022 1:24pm Start: 08-14-2022 End: 09-08-2022 take 2 tablets by mouth at bedtime Atorvastatin 20 mg tablet Discontinued 40 mg PO AT BEDTIME August 14, 2022 12:00am September 08, 2022 1:24pm atovaquone 150 mg/ml oral suspension (3 sources) Antimalarial, Antiprotozoal Start: 11-10-2022 take 0.5 [tsp_us] by mouth once daily, then take 1 [tsp_us] by mouth twice daily atovaquone 750 MG/5ML Suspension oral suspension Start with 1/2 teaspoon by mouth once daily with a high fat food. Gradually increase dose until you are taking 1 teaspoon twice daily 11/10/2022 Active cefTRIAXone 1 g/10 mL in sterile water (PF) injection (3 sources) cefTRIAXone 1 g/ 10 mL in sterile water (PF) injection Infuse 1 g into a venous catheter every 24 hours. Active cefuroxime 500 mg oral tablet (3 sources) Cephalosporin Antibacterial Start: 10-17-2022 take 1 tablet by mouth twice daily cefUROXime 500 MG tablet Take 1 tablet by mouth 2 times daily. 10/17/2022 Active Chlorhexidine (3 sources) Chlorhexidine Gluconate (HIBICLENS EX) BIOME ADX SUPERIOR GRADE NUTRACEUTICAL BID Active famotidine 20 mg oral tablet (3 sources) Histamine-2 Receptor Antagonist Start: 09-09-2022 take 1 tablet by mouth once daily as needed for pain faMOTIdine 20 MG tablet Take one tablet by mouth daily as needed for stomach pain or indigestion 09/09/2022 Active fluconazole 100 mg oral tablet (3 sources) Azole Antifungal take 1 tablet by mouth once daily fluconazole (Diflucan) 100 MG tablet Take 100 mg by mouth daily. Active hydroxychloroquine sulfate 200 mg oral tablet (4 sources) Antimalarial, Antirheumatic Agent Start: 04-12-2024 take 1 tablet by mouth twice daily hydroxychloroquine (Plaquenil) 200 MG tablet Take 1 tablet by mouth 2 times daily. 04/12/2024 Active Start: 09-08-2022 take 1 tablet [facility] daily Hydroxychloroquine 200 mg tablet Active 200 mg PO DAILY September 08, 2022 12:00am metroNIDAZOLE 500 mg oral tablet (3 sources) Nitroimidazole Antimicrobial metroNIDAZOLE (Flagyl) 500 MG tablet Take 500 mg by mouth. Active minocycline 50 mg oral capsule (3 sources) Tetracycline-class Drug Start: 10-10-19 take 1 capsule by mouth once daily, then take 1 capsule by mouth twice daily minocycline 50 MG capsule TAKE ONE CAPSULE BY MOUTH EVERY DAY FOR FOURTEEN DAYS THEN increase TO TAKE ONE CAPSULE TWICE DAILY 10/09/2022 Active pantoprazole 40 mg delayed release oral tablet (1 source) Proton Pump Inhibitor Start: 08-15-19 take 1 tablet by mouth once daily Pantoprazole 40 mg tablet,delayed release (DR/EC) Active 40 mg PO DAILY August 14, 2022 12:00am predniSONE 5 mg oral tablet (11 sources) Start: 08-15-19 take 1 tablet by mouth once daily Prednisone 5 mg tablet Active 5 mg PO DAILY August 14, 2022 12:00am Start: 03-13-2022 End: 04-08-2022 take 2 tablets by mouth once daily Prednisone 20 mg tablet Discontinued 40 mg PO DAILY March 13, 2022 12:00am April 08, 2022 2:37pm Start: 03-13-2022 End: 04-08-2022 take 40 mg by mouth once daily Prednisone Discontinued 40 MG PO DAILY March 12, 2022 11:00pm April 08, 2022 1:37pm take 6 tablets by mo [facility] once daily predniSONE (DELTASONE) 1 MG tablet Take 6 (six) tablets (6 mg total) by mouth daily . 0 Active s-adenosylmethionine 200 mg oral tablet (3 sources) S-Adenosylmethio nine (SANDRA-e) 200 MG capsule Take by mouth. Active spironolactone 25 mg oral tablet (6 sources) Aldosterone Antagonist spironolactone (Aldactone) 25 MG tablet Take by mouth daily. Active Tetrahydrobiopterin DiHCl powder (3 sources) Tetrahydrobiopte rin DiHCl powder Active tinidazole 250 mg oral tablet (3 sources) Nitroimidazole Antimicrobial Start : 10-29 take 1 tablet by mouth twice daily Tinidazole 250 MG tablet TAKE ONE TABLET (250mg) BY MOUTH TWICE DAILY with cefuroxime 10/29/2022 Active Completed/Discontinued Medications Medication Drug Class(es) Dates Sig (Normalized) Sig (Original) aspirin 81 mg chewable tablet (1 source) Platelet Aggregation Inhibitor, Nonsteroidal Anti-inflammatory Drug Start: 08-14-2022 End: 09-09-2022 take 1 tablet by mouth once daily Aspirin 81 mg tablet,chewable Discontinued 81 mg PO DAILY August 14, 2022 12:00am September 09, 2022 1:51pm barium sulfate (E-Z-Paque) 96 % suspension 176 g (2 sources) Start: 07-18-2024 End: 07-18-2024 take 176 g by mouth once as needed 176 g (60 mL), Oral, IMG once PRN, given orally, Starting on Thu07/18/24 at 0952, For 1 dose clopidogrel 75 mg oral tablet (1 source) [id number] Platelet Inhibitor Start: 08-14-2022 End: 08-14-2022 take 1 tablet by mouth once daily Clopidogrel 75 mg tablet Discontinued 75 mg PO DAILY August 14, 2022 12:00am August 14, 2022 2:33pm metoprolol tartrate 25 mg oral tablet (1 source) beta-Adrenergic Nya Start: 08-14-2022 End: 09-09-2022 take 1 tablet by mouth twice daily Metoprolol Tartrate 25 mg tablet Discontinued 25 mg PO TWICE A DAY August 14, 2022 12:00am September 09, 2022 1:51pm microencapsulated potassium chloride 20 meq extended release oral tablet (8 sources) Start: 03-12-2022 End: 04-08-2022 take 2 tablets by mouth once Potassium Chloride 20 mEq tablet,ER particles/crystal s Discontinued 40 meq PO ONCE March 12, 2022 12:00am April 08, 2022 2:37pm Start: 03-12-2022 End: 04-08-2022 take 40 mEq by mouth once Potassium Chloride Discontin ued 40 MEQ PO ONCE March 11, 2022 11:00pm April 08, 2022 1:37pm Problems Problem Classification Problem Date Documented Da te Episodic/Chronic Abdominal pain (20 sources) Unspecified abdominal pain; Translations: [Abdominal pain, other specified site] Onset: 07-15-2024 Episodic Acute cerebrovascular disease (9 sources) Cerebrovascular accident; Translations: [Cerebral infarction, unspecified] Onset: 09-15-2022 11-13-2022 Chronic Acute myocardial infarction (4 sources) Myocardial infarction; Translations: [Acute myocardial infarction, unspecified] Onset: 07-15-2024 07-15-2024 Chronic Administrative/social admission (7 sources) Persons encountering health services in other specified circumstances; Translations: [Other reasons for seeking consultation] Episodic Cardiac and circulatory congenital anomalies (14 sources) Patent foramen ovale; Translations: [PFO (patent foramen ovale)] Onset: 09-15-2022 11-13-2022 Chronic Neoplasms of unspecified nature or uncertain behavior (11 sources) Leiomyoma; Translations: [Neoplasm of uncertain behavior of connective and other soft tissue] Onset: 07-15-2024 10-05-2020 Episodic Nonspecific chest pain (13 sources) Chest pain; Translations: [Chest pain, unspecified] Onset: 05-18-2023 03-11-2022 Episodic Other aftercare (1 source) Follow-up status; Translations: [Encounter for adjustment and management of vascular access device] 04-29-2023 Episodic Other aftercare (2 sources) Encounter for adjustment and management of vascular access device; Translations: [Encounter for adjustment and management of vascular access device] Onset: 04-29-2023 Episodic Other circulatory disease (1 source) Past history of procedure; Translations: [Presence of other vascular implants and grafts] 04-29-2023 Chronic Other circulatory disease (2 sources) Presence of other vascular implants and grafts; Translations: [Presence of other vascular implants and grafts] Onset: 04-29-2023 Chronic Other circulatory disease (1 source) History of cerebrovascular accident; Translations: [Personal history of transient ischemic attack (TIA), and cerebral infarction without residual deficits] 07-18-2024 Episodic Other disorders of stomach and duodenum (6 sources) Indigestion; Translations: [Functional dyspepsia] 06-23-2024 Episodic Other disorders of stomach and duodenum (2 sources) Functional dyspepsia; Translations: [Functional dyspepsia] Onset: 07-18-2024 Episodic Other gastrointestinal disorders (6 sources) Dysphagia; Translations: [Dysphagia, unspecified] 06-23-2024 Episodic Other gastrointestinal disorders (2 sources) Dysphagia, unspecified; Translations: [Dysphagia, unspecified] Onset: 07-18-2024 Episodic Other gastrointestinal disorders (2 sources) Personal history of other diseases of the digestive system; Translations: [Personal history of other diseases of the digestive system] Onset: 07-18-2024 Episodic Other lower respiratory disease (7 sources) Shortness of breath; Translations: [Shortness of breath] Episodic Other lower respiratory disease (17 sources) Pleurodynia; Translations: [Painful respiration] Episodic Other lower respiratory disease (17 sources) Other nonspecific abnormal finding of lung field; Translations: [Other nonspecific abnormal finding of lung field] Episodic Other lower respiratory disease (4 sources) Dyspnea; Translations: [Shortness of breath] Onset: 07-15-2024 07-18-2024 Episodic Other lower respiratory disease (3 sources) Multiple nodules of lung; Translations: [Other nonspecific abnormal finding of lung field] Onset: 07-15-2024 07-15-2024 Episodic Other lower respiratory disease (3 sources) Pleuritic pain; Translations: [Pleurodynia] Onset: 07-15-2024 07-15-2024 Episodic Other non-traumatic joint disorders (11 sources) Multiple joint pain; Translations: [Pain in unspecified joint] Onset: 07-15-2024 03-11-2022 Episodic Other non-traumatic joint disorders (7 sources) Pain in unspecified joint; Translations: [Pain in joint, multiple sites] Episodic Other screening for suspected conditions (not mental disorders or infectious disease) (4 sources) CT of chest abnormal; Translations: [Abnormal findings on diagnostic imaging of other specified body structures] Onset: 07-15-2024 07-15-2024 Chronic Comment on above: The patient has per March 2022 CT chest report multiple stable bilateral pulmonary nodules and multiple air cysts, unchanged from October 05, [address] 03/24/2022. 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 This is places her at risk of pneumothorax. Chest x-rays from her admission in July 25, 2022 will be reviewed. Part of the report showed bilateral pulmonary emboli. - After 3 months of treatment of bilateral pulmonary emboli, consider starting Biologics for her CVD pulmonary disease and/or another prednisone boost. -Yearly noncontrast chest CT scan x2 to follow course of disease. -Have a low threshold of chest x-ray to rule out pneumothorax if her pleurisy suddenly increases. She will also need CTA for increased signs and symptoms of pulmonary embolism. -Maintain SPO2 greater than 90% with sleep, exercise, and rest. Phlebitis; thrombophlebitis and thromboembolism (12 sources) Thrombosis of superficial vein of lower limb; Translations: [Embolism and thrombosis of superficial veins of right lower extremity] Onset: 07-15-2024 03-11-2022 Episodic Comment on above: Acute right gastroc DVT on today's lower extremity Doppler. - After assessing risks and benefits of triple therapy, and not superiority of Plavix over aspirin alone for stroke prophylaxis, I started: - Eliquis 5 mg twice daily to start in the morning - Stop Plavix - We requested urgent relay of all records from [facility] to evaluate the patient's cardiac interventions while she was in the CICU. She may need Plavix for stent. Pneumonia (except that caused by tuberculosis or sexually transmitted disease) (1 source) Pneumonia, unspecified organism; Translations: [Pneumonia, unspecified organism] Onset: 10-10-2024 Episodic Pulmonary heart disease (4 sources) Pulmonary embolism; Translations: [Other pulmonary embolism without acute cor pulmonale] Onset: 07-15-2024 07-15-2024 Episodic Comment on above: The patient's record s from [facility] indicates she had pulmonary emboli on chest CT scan. This may have predated her cardiac arrest, since her symptoms of pleurisy began 6 months ago. 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 It is more likely that her pleurisy is chiefly related to her connective tissue disease, since the constant nature of the pleurisy is less likely to be related to acute or intermittent pulmonary emboli, and does not migrate. She is currently only on dual antiplatelet therapy after her stroke, and is not on treatment for DVT/PE. Dual antiplatelet therapy is no longer being used because of the unacceptable risk of bleeding. Aspirin alone has been found to be noninferior to Plavix. Today her superficial venous thrombosis has extended to a gastroc and popliteal DVT. (Final report pending) - Eliquis 5 mg twice daily will start tomorrow, picked up from the outpatient [facility] pharmacy today. I spoke directly with the pharmacist to facilitate patient receiving instructions. - Permanently stop Plavix, immediately. - Continue aspirin 81 mg/day for secondary stroke prevention - We requested full discharge summary and intensive care consultation notes from [facility]. Several questions remain about her cardiac status stenting etc. - Follow-up in 1 month - Overnight oximetry on room air Residual codes; unclassified (7 sources) Immunization not carried out because of patient refusal; Translations: [Vaccination not carried out because of patient refusal] Episodic Residual codes; unclassified (7 sources) Procedure and treatment not carried out because of patient's decision for unspecified reasons; Translations: [Surgical or other procedure not carried out because of patient's decision] Episodic Residual codes; unclassified (6 sources) History of hernia repair; Translations: [Other specified postprocedural states] 06-23-2024 Episodic Residual codes; unclassified (2 sources) Other specified postprocedural states; Translations: [Other specified postprocedural states] Onset: 07-18-2024 Episodic Systemic lupus erythematosus and connective tissue disorders (14 sources) Systemic involvement of connective tissue, unspecified; Translations: [Autoimmune disease, not elsewhere classified] Onset: 07-15-2024 Chronic Comment on above: This patient's joint disease has been well controlled by her current regimen of Plaquenil and prednisone 5 mg daily. She can increase her prednisone for flares. She has not been tried on Biologics to her recollection. - I will defer to rheumatology regarding the risk-benefit of adding or switching prednisone to Enbrel or other biologic agent for RA. The goal would be to decrease pleurisy symptoms and progression of her lung disease. Cystic lung disease is most associated with Sjogren's, and she has clinical features of RF, Sjogren's, and Svetlana's (upper airway disease). Selecting an agent that works better in Sjogren's may be appropriate. - Balance need for prednisone versus risk of bleeding while on aspirin and Eliquis. - In the event of serious bleeding, hold prednisone and stop Eliquis briefly until bleeding resolves. For menses, she can decrease to one 2.5 mg daily until her menses are complete, then resume 5 mg twice daily-Reassess in 6 months-DLCO and lung volume studies prior to visit.-Chest x-ray prior to next visit, with additional imaging depending on her clinical course.This is an extremely complex young patient, and is at risk of bleeding, falls, respiratory deterioration, complications of DVT/PE, collagen vascular disease, and stroke.When she is 6 months out from her thromboembolic event, it may be beneficial to pause and give her a chance to achieve remission for her mixed connective tissue disease. Unclassified (2 sources) New Patient; Translations: [New Patient] Onset: 07-18-2024 Results Test Name Value Interpretation Reference Range Facility IgG Subclasseson 08-28-2024 IgG, SUBCLASS 1 2951 mg/dL High 248-810 [facility] Comment on above: Performed By: #### L 100.0100, L500.4050 #### [facility] [address] [place], [address] IgG, SUBCLASS 2 199 mg/dL Normal 130-555 [facility] Comment on above: Performed By: #### L 100.0100, L500.4050 #### [facility] [address] [place], [address] IgG, SUBCLASS 3 193 mg/dL High 15-102 [facility] Comment on above: Performed By: #### L 100.0100, L500.4050 #### [facility] [address] [place], [address] IgG, SUBCLASS 4 4 mg/dL Normal 2-96 [facility] Comment on above: Performed By: #### L 100.0100, L500.4050 #### [facility] [address] [place], [address] Immunoglobulins G/A/M/Peter IMMUNOGLOB A QN 513 mg/dL High 87-352 [facility] Comment on above: Order Comment: Y Performed By: #### L 100.0100, L500.4050 #### [facility] [address] [place], [address] IMMUNOGLOB E QN 3 IU/mL Low 6-495 [facility] Comment on above: Order Comment: Y Result Comment: Perf ormed at: [address] [id number] [employer]: Ciro Rincon PhD, Phone: [phone] Performed at: [facility] [address] [place], [place] [id number] [employer]: Barrington Manzano MD, Phone: [phone] Performed By: #### L 100.0100, L500.4050 #### [facility] [address] [place], [address] IMMUNOGLOB G QN 4182 mg/dL High 586-1602 [facility] Comment on above: Order Comment: Y Performed By: #### L 100.0100, L500.4050 #### [facility] [address] [place], [address] IMMUNOGLOB M QN 184 mg/dL Normal 26-217 [facility] Comment on above: Order Comment: Y Performed By: #### L 100.0100, L500.4050 #### [facility] [address] [place], [address] CBC W/Diff, Automatedon 04-1 PATH REV Reviewed Normal [facility] Comment on above: Result Comment: SEE REPORT IN PATIENT'S EMR AMENDED REPORT 08/24/24 1035 PATH REV previously reported as: May foll Performed By: #### L 100.0100, L500.4050 #### [facility] [address] [place], [address] CBC W/Diff, Automatedon 04-0 PATH REV N/A Normal [facility] Comment on above: Result Comment: AMENDED REPORT 08/14/24 1613 PATH REV previously reported as: May foll Performed By: #### L 300.3900, L100.0100, L500.2500 #### [facility] [address] [place], [address] Absolute neutrophil counton 08-11-2024 Neutrophils (Bld) [#/Vol] 2.3 10*3/uL 2.0-7.7 [facility] Anion gap in Serum or Plasma on 08-11-2024 Anion gap [Moles/Vol] 9 mmol/L 5-15 [facility] BUN/creatinine ratioon 08-11 Urea nitrogen/Creatinine [Mass ratio] 19.0 mg/mg 10-20 [facility] Basic Metabolic Profile (BMP )on 08-11-2024 BUN/CRE 19.0 RATIO Normal 10-20 [facility] Comment on above: Performed By: #### L 300.3900, L100.0100, L500.2500 #### [facility] [address] [place], [address] Calcium [Mass/Vol] 9.0 mg/dL Normal 7.6-11.0 [facility] Comment on above: Performed By: #### L 300.3900, L100.0100, L500.2500 #### [facility] [address] [place], [address] Chloride [Moles/Vol] 102 mmol/L Normal 98-108 [facility] Comment on above: Performed By: #### L 300.3900, L100.0100, L500.2500 #### [facility] [address] [place], [address] CO2 [Moles/Vol] 25.1 mmol/L Normal 21.0-32.0 [facility] Comment on above: Performed By: #### L 300.3900, L100.0100, L500.2500 #### [facility] [address] [place], [address] Creatinine [Mass/Vol] 0.63 mg/dL Low 0.70-1.20 [facility] Comment on above: Performed By: #### L 300.3900, L100.0100, L500.2500 #### [facility] [address] [place], [address] GAP 9 Normal -15 [facility] Comment on above: Performed By: #### L 300.3900, L100.0100, L500.2500 #### [facility] [address] [place], [address] GFR/1.73 sq M.predicted among non-blacks MDRD (S/P/Bld) [Vol rate/Area] 113 mL/min/{1.73_m2} Normal >[address] [facility] Comment on above: Result Comment: mL/m in/1.73m2 CKD-EPI Creatinine Equation (2020) Performed By: #### L 300.3900, L100.0100, L500.2500 #### [facility] [address] [place], [address] Glucose [Mass/Vol] 93 mg/dL Normal 70-99 [facility] Comment on above: Performed By: #### L 300.3900, L100.0100, L500.2500 #### [facility] [address] [place], [address] Potassium [Moles/Vol] 4.2 mmol/L Normal 3.3-5.1 [facility] Comment on above: Performed By: #### L 300.3900, L100.0100, L500.2500 #### [facility] [address] [place], [address] Sodium [Moles/Vol] 135 mmol/L Normal 133-145 [facility] Comment on above: Performed By: #### L 300.3900, L100.0100, L500.2500 #### [facility] [address] [place], [address] Urea nitrogen [Mass/Vol] 12 mg/dL Normal 4-19 [facility] Comment on above: Performed By: #### L 300.3900, L100.0100, L500.2500 #### [facility] [address] [place], [address] Basophil percentageon 2024 Basophils/100 WBC (Bld) 0.3 % 0-1 [facility] Carbon dioxide, total [Moles /volume] in Central venous bloodon 08-11-2024 CO2 [Moles/Vol] 25.1 mmol/L 21.0-32.0 [facility] Chest PA and Lateralon 08-11 Chest PA and Lateral [facility] Imaging Services [address] [place] [address] Chest PA and Lateral MR#: [id number] Acct: [id number] Name: MARY COOK Rep #: [id number] : 1980 F 44 From: Quinn Lee MD PCP: Charito Monet, CEE-C Status: REG CLI Study: Chest PA and Lateral Date of Exam: 08/11/24 Exam# [id number] Ordering Dr: MONIKA SCHNEIDER EXAM: XR Chest, 2 Views CLINICAL INDICATION: PFO TECHNIQUE: Frontal and lateral views of the chest. COMPARISON: No relevant prior studies available. FINDINGS: LUNGS AND PLEURAL SPACES: Subtle patchy airspace disease of the lingula and right middle lobe could be developing pneumonia. This could be further evaluated with CT. No pneumothorax. HEART: Unremarkable. No cardiomegaly. MEDIASTINUM: Unremarkable. Normal mediastinal contour. BONES/JOINTS: Unremarkable. No acute fracture. RAD/Chest PA and Lateral IMPRESSION: Subtle patchy airspace disease of the lingula and right middle lobe could be developing pneumonia. This could be further evaluated with CT. Reading Location: [facility] CC: 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-C Charito Monet; MONIKA SCHNEIDER Supplier Manager: Signed Normal [facility] Chloride assayon 08-11-2024 Chloride [Moles/Vol] 102 mmol/L 98-108 [facility] Eosinophil percentageon 04-0 Eosinophils/100 WBC (Bld) 2.0 % 0-5 [facility] Erythrocyte distribution wid th (RBC) [Ratio]on 08-11-2024 Erythrocyte distribution width (RBC) [Entitic vol] 44.7 fL High 35.1-43.9 [facility] Erythrocyte distribution wid th ratioon 08-11-2024 Erythrocyte distribution width (RBC) [Ratio] 14.7 % High 11.6-14.6 [facility] GFR/1.73 sq M.predicted doe g non-blacks MDRD (S/P/Bld) [Vol rate/Area]on 08-11-2024 Estimated GFR (MDRD) Non-Af Amer 113 >60 [facility] Comment on above: mL/min/1.73m2 CKD-EP I Creatinine Equation (2020) Hematocrit Auto (Bld) [Volum e fraction]on 08-11-2024 Hematocrit (Bld) [Volume fraction] 33.5 % Low 37-47 [facility] Hemoglobin measurementon Hemoglobin (Bld) [Mass/Vol] 10.3 g/dL Low 12.0-15. 0 [facility] Immature granulocytes/100 WB C Auto (Bld)on 08-11-2024 Immature granulocytes/100 WBC (Bld) 0.300 % 0.0-0.9 [facility] Comment on above: IG% - Immature Granu locytes (promyelocytes, myelocytes and metamyelocytes) > 1% indicates that a LEFT SHIFT is Present. International normalized rat io (INR) calculationon 08-11-2024 INR Coag (Bld) [Relative time] 1.1 {INR} [facility] Lymphocytes Auto (Unsp spec) [#/Vol]on 08-11-2024 Lymphocytes (Bld) [#/Vol] 0.49 10*3/uL Low 0.83-4.5 1 [facility] Lymphocytes/100 WBC Auto (Un sp spec)on 08-11-2024 Lymphocytes/100 WBC (Bld) 16.5 % Low 19-41 [facility] MCV (mean corpuscular volume ) determinationon 08-11-2024 MCV (RBC) [Entitic vol] 82.7 fL 81-99 [facility] Mean corpuscular hemoglobin (MCH) determinationon 08-11-2024 MCH (RBC) [Entitic mass] 25.4 pg Low 27.0-32.0 [facility] Mean corpuscular hemoglobin concentration (MCHC) determinationon 08-11-2024 MCHC (RBC) [Mass/Vol] 30.7 g/dL Low 32-36 [facility] Mean platelet volume determi nationon 04-03-2025 Platelet mean volume (Bld) [Entitic vol] 9.4 fL 6.2-12.0 [facility] Monocyte percentageon 2024 Monocytes/100 WBC (Bld) 3.4 % 0-10 [facility] Neutrophil percentageon 04-0 Neutrophils/100 WBC (Bld) 77.5 % High 47-70 [facility] Nucleated red blood cell per centageon 08-11-2024 Nucleated RBC/100 WBC (Bld) [Ratio] 0 % 0-5 [facility] Pathologist review Vishal (Unsp spec) [Interp]on 08-11-2024 Differential Pathologist's Review N/A [facility] Comment on above: Previous reported re sult: Radha ramirez Edited by: DELONTE on 08/14/24:1613 AMENDED REPORT 08/14/24 1613 PATH REV previously reported as: Radha ramirez Platelet counton 08-11-2024 Platelets (Bld) [#/Vol] 288 10*3/uL 150-450 [facility] Potassium (Unsp spec) [Mass/ Vol]on 08-11-2024 Potassium [Moles/Vol] 4.2 mmol/L 3.3-5.1 [facility] Prothrombin Time w/INRon INR Coag (PPP) [Relative time] 1.1 {INR} Normal [facility] Comment on above: Performed By: #### L 300.3900, L100.0100, L500.2500 #### [facility] [address] [place], [address] PT Coag (PPP) [Time] 14.8 s Normal 11.7-14.9 [facility] Comment on above: Performed By: #### L 300.3900, L100.0100, L500.2500 #### [facility] [address] [place], [address] Prothrombin timeon PT Coag (PPP) [Time] 14.8 s 11.7-14.9 [facility] RBC Auto (Bld) [#/Vol]on RBC (Bld) [#/Vol] 4.05 10*6/uL Low 4.2-5.4 [facility] Serum creatinine measurement (mass/volume)on 08-11-2024 Creatinine [Mass/Vol] 0.63 mg/dL Low 0.70-1.20 [facility] Serum glucose measurement (m ass/volume)on 08-11-2024 Glucose [Mass/Vol] 93 mg/dL 70-99 [facility] Serum or plasma calcium sara urement (mass/volume)on 08-11-2024 Calcium [Mass/Vol] 9.0 mg/dL 7.6-11.0 [facility] Serum or plasma urea nitroge n measurement (mass/volume)on 08-11-2024 Urea nitrogen [Mass/Vol] 12 mg/dL 4-19 [facility] Sodium levelon 08-11-2024 Sodium [Moles/Vol] 135 mmol/L 133-145 [facility] White blood cell (WBC) count on 08-11-2024 WBC (Bld) [#/Vol] 3.0 10*3/uL Low 4.4-11.0 [facility] Absolute neutrophil countOrd ered By: Charito Monet on 07-25-2024 Neutrophils (Bld) [#/Vol] 1.8 10*3/uL Low 2.0-7.7 [facility] Anion gap in Serum or Plasma Ordered By: Charito Monet on 07-25-2024 Anion gap [Moles/Vol] 8 mmol/L 5-15 [facility] BUN/creatinine ratioOrdered By: Charito Monet on 07-25-2024 Urea nitrogen/Creatinine [Mass ratio] 17.9 mg/mg 10-20 [facility] Basophil percentageOrdered B y: Charito Monet on 07-25-2024 Basophils/100 WBC (Bld) 0.4 % 0-1 [facility] Bilirubin, totalOrdered By: Charito Monet on 07-25-2024 Bilirubin [Mass/Vol] 0.28 mg/dL Normal 0.00-1.30 [facility] Comment on above: Performed By: #### L 100.0100, L500.4050 #### [facility] [address] [place], [address] Carbon dioxide, total [Moles /volume] in Central venous bloodOrdered By: Charito Monet on 07-25-2024 CO2 [Moles/Vol] 24.3 mmol/L Normal 21.0-32.0 [facility] Comment on above: Performed By: #### L 100.0100, L500.4050 #### [facility] [address] [place], [address] Chloride assayOrdered By: Brien Monet on 07-25-2024 Chloride [Moles/Vol] 103 mmol/L Normal 98-108 [facility] Comment on above: Performed By: #### L 100.0100, L500.4050 #### [facility] [address] [place], [address] Comprehensive Metabolic Prof ilon 07-25-2024 ALK PHOS 85 U/L Normal 35-104 [facility] Comment on above: Performed By: #### L 100.0100, L500.4050 #### [facility] [address] [place], [address] BUN/CRE 17.9 RATIO Normal 10-20 [facility] Comment on above: Performed By: #### L 100.0100, L500.4050 #### [facility] [address] [place], [address] GAP 8 Normal 5-15 [facility] Comment on above: Performed By: #### L 100.0100, L500.4050 #### [facility] [address] [place], [address] GFR/1.73 sq M.predicted among non-blacks MDRD (S/P/Bld) [Vol rate/Area] 115 mL/min/{1.73_m2} Normal >60 [facility] Comment on above: Result Comment: mL/m in/1.73m2 CKD-EPI Creatinine Equation (2020) Performed By: #### L 100.0100, L500.4050 #### [facility] [address] [place], [address] T PROT 8.7 g/dL High 5.9-8.4 [facility] Comment on above: Performed By: #### L 100.0100, L500.4050 #### [facility] [address] [place], [address] Comprehensive Metabolic Prof ilOrdered By: Charito Monet on 07-25-2024 AST [Catalytic activity/Vol] 18 U/L Normal <=31 [facility] Comment on above: Performed By: #### L 100.0100, L500.4050 #### [facility] [address] [place], [address] Eosinophil percentageOrdered By: Charito Monet on 07-25-2024 Eosinophils/100 WBC (Bld) 3.0 % 0-5 [facility] Erythrocyte distribution wid th (RBC) [Ratio]Ordered By: Charito Monet on 07-25-2024 Erythrocyte distribution width (RBC) [Entitic vol] 45.8 fL High 35.1-43.9 [facility] Erythrocyte distribution wid th ratioOrdered By: Charito Monet on 07-25-2024 Erythrocyte distribution width (RBC) [Ratio] 15.0 % High 11.6-14.6 [facility] GFR/1.73 sq M.predicted doe g non-blacks MDRD (S/P/Bld) [Vol rate/Area]Ordered By: Charito Monet on 07-25-2024 Estimated GFR (MDRD) Non-Af Amer 115 >60 [facility] Comment on above: mL/min/1.73m2 CKD-EP I Creatinine Equation (2020) Hematocrit Auto (Bld) [Volum e fraction]Ordered By: Charito Monet on 07-25-2024 Hematocrit (Bld) [Volume fraction] 32.4 % Low 37-47 [facility] Hemoglobin measurementOrdere d By: Charito Monet on 07-25-2024 Hemoglobin (Bld) [Mass/Vol] 10.0 g/dL Low 12.0-15. 0 [facility] Immature granulocytes/100 WB C Auto (Bld)Ordered By: Charito Monet on 07-25-2024 Immature granulocytes/100 WBC (Bld) 0.400 % 0.0-0.9 [facility] Comment on above: IG% - Immature Granu locytes (promyelocytes, myelocytes and metamyelocytes) > 1% indicates that a LEFT SHIFT is Present. Lymphocytes Auto (Unsp spec) [#/Vol]Ordered By: Charito Monet on 07-25-2024 Lymphocytes (Bld) [#/Vol] 0.57 10*3/uL Low 0.83-4.5 1 [facility] Lymphocytes/100 WBC Auto (Un sp spec)Ordered By: Charito Monet on 07-25-2024 Lymphocytes/100 WBC (Bld) 21.3 % 19-41 [facility] MCV (mean corpuscular volume ) determinationOrdered By: Charito Monet on 07-25-2024 MCV (RBC) [Entitic vol] 83.3 fL 81-99 [facility] Mean corpuscular hemoglobin (MCH) determinationOrdered By: Charito Monet on 07-25-2024 MCH (RBC) [Entitic mass] 25.7 pg Low 27.0-32.0 [facility] Mean corpuscular hemoglobin concentration (MCHC) determinationOrdered By: Charito Monet on 07-25-2024 MCHC (RBC) [Mass/Vol] 30.9 g/dL Low 32-36 [facility] Mean platelet volume determi nationOrdered By: Charito Monet on 07-25-2024 Platelet mean volume (Bld) [Entitic vol] 10.2 fL 6.2-12.0 [facility] Monocyte percentageOrdered B y: Charito Monet on 07-25-2024 Monocytes/100 WBC (Bld) 6.7 % 0-10 [facility] Neutrophil percentageOrdered By: Charito Monet on 07-25-2024 Neutrophils/100 WBC (Bld) 68.2 % 47-70 [facility] Nucleated red blood cell per centageOrdered By: Charito Monet on 07-25-2024 Nucleated RBC/100 WBC (Bld) [Ratio] 0 % 0-5 [facility] Pathologist review Vishal (Unsp spec) [Interp]Ordered By: Charito Monet on 07-25-2024 Differential Pathologist's Review May foll [facility] Platelet countOrdered By: Brien Monet on 07-25-2024 Platelets (Bld) [#/Vol] 167 10*3/uL 150-450 [facility] Potassium measurement (mass/ volume)Ordered By: Charito Monet on 07-25-2024 Potassium [Moles/Vol] 4.0 mmol/L Normal 3.3-5.1 [facility] Comment on above: Performed By: #### L 100.0100, L500.4050 #### [facility] [address] [place], [address] RBC Auto (Bld) [#/Vol]Ordere d By: Charito Monet on 07-25-2024 RBC (Bld) [#/Vol] 3.89 10*6/uL Low 4.2-5.4 [facility] Serum creatinine measurement (mass/volume)Ordered By: Charito Monet on 07-25-2024 Creatinine [Mass/Vol] 0.59 mg/dL Low 0.70-1.20 [facility] Comment on above: Performed By: #### L 100.0100, L500.4050 #### [facility] [address] [place], [address] Serum globulin measurementOr dered By: Charito Monet on 07-25-2024 Globulin (S) [Mass/Vol] 5.4 g/dL High 2.2-4.2 [facility] Comment on above: Performed By: #### L 100.0100, L500.4050 #### [facility] [address] [place], [address] Serum glucose measurement (m ass/volume)Ordered By: Charito Monet on 07-25-2024 Glucose [Mass/Vol] 85 mg/dL Normal 70-99 [facility] Comment on above: Performed By: #### L 100.0100, L500.4050 #### [facility] [address] [place], [address] Serum or plasma alanine chirinos otransferase (ALT) measurementOrdered By: Charito Monet on 07-25-2024 ALT [Catalytic activity/Vol] 19 U/L Normal <=34 [facility] Comment on above: Performed By: #### L 100.0100, L500.4050 #### [facility] [address] [place], [address] Serum or plasma albumin sara urement (mass/volume)Ordered By: Charito Monet on 07-25-2024 Albumin [Mass/Vol] 3.3 g/dL Low 3.5-5.0 [facility] Comment on above: Performed By: #### L 100.0100, L500.4050 #### [facility] [address] [place], [address] Serum or plasma albumin/glob ulin mass ratioOrdered By: Charito Monet on 07-25-2024 Albumin/Globulin [Mass ratio] 0.6 {ratio} Low 0.9-2.4 [facility] Comment on above: Performed By: #### L 100.0100, L500.4050 #### [facility] [address] [place], [address] Serum or plasma alkaline siobhan sphatase measurementOrdered By: Charito Monet on 07-25-2024 ALP [Catalytic activity/Vol] 85 U/L 35-104 [facility] Serum or plasma calcium sara urement (mass/volume)Ordered By: Charito Monet on 07-25-2024 Calcium [Mass/Vol] 8.5 mg/dL Normal 7.6-11.0 [facility] Comment on above: Performed By: #### L 100.0100, L500.4050 #### [facility] [address] [place], [address] Serum or plasma urea nitroge n measurement (mass/volume)Ordered By: Charito Monet on 07-25-2024 Urea nitrogen [Mass/Vol] 11 mg/dL Normal 4-19 [facility] Comment on above: Performed By: #### L 100.0100, L500.4050 #### [facility] [address] [place], [address] Sodium levelOrdered By: Anand Monet on 07-25-2024 Sodium [Moles/Vol] 136 mmol/L Normal 133-145 [facility] Comment on above: Performed By: #### L 100.0100, L500.4050 #### [facility] [address] [place], [address] Total proteinOrdered By: Hipolito Monet on 07-25-2024 Protein [Mass/Vol] 8.7 g/dL High 5.9-8.4 [facility] White blood cell (WBC) count Ordered By: Charito Monet on 07-25-2024 WBC (Bld) [#/Vol] 2.7 10*3/uL Low 4.4-11.0 [facility] 36on 07-20-2024 36 LVM relaying results of UGI. No HH, no reflux. Mild dysmotility of MMB, but clears with no issues. I reviewed with Dr. Jose peña'kathy returning to tape sewer for PFO closure and consideration of returning to pul to further evaluate her symptoms. If patient has chest pain associated with PO intake, can proceed with further evaluation with manometry, possible EGD, however I would not consider these significant findings at this time. Callback with any questions/concerns. [facility] 36on 07-19-2024 36 Pt called in asking if someone could let her know the results of her UGI yesterday. Pt stated a VM will have to be left as the phone is not at home Normal [facility] Office Visiton 07-18-2024 Follow-up visit [id number] Mary Cook 1980 F Date Provider Department Center 07/18/2024 [id number]-JUDGTFUROSA [facility]IA [facility] ALS None Family History Problem Relation Age of Onset Heart block Father Family Status - Relation Status Age at Mother Alive Father Alive Level of Service:59310 CT OFFICE/OUTPATIENT NEW MODERATE MDM 45 MINUTES Reason for Visit and Comments: New Patient [542] - ALS 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 referral Hiatal Hernia Charito Monet [facility] Progress Noteon 07-18-2024 Progress Note [facility] Advanced Laparoscopic Surgery Patient Name: Mary Cook Date: 07/18/24 Referring Physician: Charito Monet, SHMUEL * HPI: Mary Cook is a 44 y.o. female who presents with symptoms of chest pain, shortness of breath, and discomfort when lying on her left side, concerning for hiatal hernia. Her assists with giving HPI. States that about 4-5 years ago, she developed central chest pain and shortness of breath. They were concerned that her symptoms were related to her hiatal hernia so tried to seek evaluation with GI however was not unable to do so. Denies heartburn, reflux. Reports occasional reflux. They ended up going to [place] for evaluation and states that they were evaluated by endoscopy and told that she had a hiatal hernia that was a 5 out of 10 and was scheduled to proceed with hiatal hernia repair. However the day before her scheduled surgery, she suffered from a CVA and was hospitalized in [place] for 11 days. Found to have a PFO and decided tocome home for further evaluation and did not proceed with hiatal hernia repair. Since that time they have been evaluated by 5 cardiologists and are currently following with Dr. Skinner at [facility] with plans to proceed with PFO repair. However, they present today to evaluate the possibility of hernia contributing to her symptoms prior to any needed heart surgery. 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 Reports that she did follow-up with a roller billet mill at some point was told she had pulmonary nodules but was also told that her lung should not be affecting her lifestyle. They no longer follow with pulmonology. Additionally, she has been diagnosed with several autoimmune diseases, including lupus, Lyme's, RA, Sjogren's. Currently being treated with IV infusions at home, which her PCP is managing. PMH significant for , tubal ligation. Denies substance abuse. Notes reviewed: - Diana Monet SHMUEL, 06/21/24 Data reviewed: None relevant I personally reviewed the patient intake form with the patient. The ROS is negative except for what is listed in HPI. PMHx: Past Medical History: Diagnosis Date Lupus (systemic lupus erythematosus) ([facility]) ([facility]) 2023 picc line to treat lupus PFO (patent foramen ovale) Dr. Skinner, cardio, [facility] Stroke ([facility]) 2022 has a hole in her heart / PFO PSHx: Past Surgical History: Procedure Laterality Date SECTION, CLASSIC 2006 TUBAL LIGATION 2019 PFMHx: Family History Problem Relation Name Age of Onset Heart block Father ALL: No Known Allergies MEDS: Current Outpatient Medications Medication Sig Dispense Refill hydroxychloroquine (Plaquenil) 200 MG tablet Take 1 tablet by mouth 2 times daily. apixaban (Eliquis) 5 MG tablet Take 5 mg by mouth 2 times daily. cefTRIAXone 1 g/10 mL in sterile water (PF) injection Infuse 1 g into a venous catheter every 24 hours. Chlorhexidine Gluconate (HIBICLENS EX) BIOME ADX SUPERIOR GRADE NUTRACEUTICAL BID fluconazole (Diflucan) 100 MG tablet Take 100 mg by mouth daily. metroNIDAZOLE (Flagyl) 500 MG tablet Take 500 mg by mouth. S-Adenosylmethionine (SANDRA-e) 200 MG capsule Take by mouth. spironolactone (Aldactone) 25 MG tablet Take by mouth daily. spironolactone (Aldactone) 25 MG tablet Take 25 mg by mouth. Tetrahydrobiopterin DiHCl powder No current facility-administere d medications for this visit. SOCIAL Hx: Social History Socioeconomic History Marital status: Spouse name: Not on file Number of children: Not on file Years of education: Not on file Highest education level: Not on file Occupational History Not on file Tobacco Use Smoking status: Never Smokeless tobacco: Never Substance and Sexual Activity Alcohol use: Never Drug use: Never Sexual activity: Yes Other Topics Concern Not on file Social History Narrative Not on file Social Drivers of Health Financial Resource Strain: Not on file Food Insecurity: Not on file Transportation Needs: Not on file Physical Activity: Not on file Stress: Not on file Social Connections: Not on file Intimate Partner Violence: Not on file Housing Stability: Not on file ROS: General: negative for - chills, fatigue, fever or malaise Gastrointestinal: negative for - change in bowel habits, hemoptysis, hematemesis, hematochezia, dysphagia, nausea, vomiting, diarrhea, constipation, weight loss DIAGNOSTIC EVALUATION: as described above Physical Examination: BP 92/62 (BP Location: Left arm, Patient Position: Sitting, BP Cuff Size: Adult) Pulse 93 Temp 36.7 ?C (98.1 ?F) (Temporal) Ht 5' 3 (1.6 m) Wt 130 lb (59 kg) BMI 23.03 kg/m? She stands Height: 5' 3 (160 cm) tall with a weight of Weight: 130 lb (59 kg), resulting in a BMI of Body mass index is 23.03 kg/m?. General: The patient is awake, alert, and oriented, and is in no apparent distress; normal affect Respiratory: Normal e (more content not included)... Normal [facility] RF Upper gastrointestinal tr act and Small bowel Single view W contrast Jose Luis 07-18-2024 Mild narrowing of distal esophagus near GE junction. Dysmotility with redirection of the thoracic esophagus. Satisfactory emptying of marshmallow and bagel from the esophagus into the stomach within two stripping waves. Report Dictated on Electronically Signed By: Yong Lao MD Electronically Signed Date/Time: 07/18/2024 3:11 PM [facility] EMERGENCY [facility]PARTMENT RADIOLOGY SYSTEM Patient Name: MARY COOK : 1980 [facility]#: [id number] Exam Date/Time: 07/18/2024 09:31 Procedure: FL UPPER GI DOUBLE CONTRAST W KUB Ordering Provider: MILLER SAMANTHA Reason For Exam: dysphagia, indigestion, suspect history of hiatal hernia repair AIR CONTRAST UGI SERIES WITH ADDITIONAL MARSHMALLOW/BAGEL BARIUM SWALLOW CLINICAL INDICATIONS: Dysphagia. Hiatal hernia. COMPARISON: None. FLUOROSCOPY DOSE: Ka,r= 93.50 mGy TECHNIQUE: Biphasic exam was performed with barium and air. Barium coated food products may also be used. FINDINGS: Barium and air are administered. The esophagus is studied in the upright as well as the horizontal positions. The esophagus is normal in course. There is dysmotility of the thoracic esophagus with redirection observed. Mild narrowing of the distal esophagus near the GE junction is observed. There is no evidence of a hiatal hernia or spontaneous gastroesophageal reflux seen. Barium flows freely from the esophagus into the stomach. The stomach and duodenum show normal mucosal patterns, with no discrete ulcer or mass. The visualized proximal jejunum is unremarkable. Additional marshmallow/bagel barium swallow performed under fluoroscopy shows satisfactory emptying of marshmallow and bagel from the esophagus into the stomach within two stripping waves. [facility] Yong Lao MD - 07/18/2024 [facility] Name: [facility] 1980 [id number] Exam Date/Time: 07/18/2024 09:31 Procedure: FL UPPER GI DOUBLE CONTRAST W KUB Ordering Provider: MILLER SAMANTHA Reason For Exam: dysphagia, indigestion, suspect history of hiatal hernia repair AIR CONTRAST UGI SERIES WITH ADDITIONAL MARSHMALLOW/BAGEL BARIUM SWALLOW CLINICAL INDICATIONS: Dysphagia. Hiatal hernia. COMPARISON: None. FLUOROSCOPY DOSE: Ka,r= 93.50 mGy TECHNIQUE: Biphasic exam was performed with barium and air. Barium coated food products may also be used. FINDINGS: Barium and air are administered. The esophagus is studied in the upright as well as the horizontal positions. The esophagus is normal in course. There is dysmotility of the thoracic esophagus with redirection observed. Mild narrowing of the distal esophagus near the GE junction is observed. There is no evidence of a hiatal hernia or spontaneous gastroesophageal reflux seen. Barium flows freely from the esophagus into the stomach. The stomach and duodenum show normal mucosal patterns, with no discrete ulcer or mass. The visualized proximal jejunum is unremarkable. Additional marshmallow/bagel barium swallow performed under fluoroscopy shows satisfactory emptying of marshmallow and bagel from the esophagus into the stomach within two stripping waves. IMPRESSION: Mild narrowing of distal esophagus near GE junction. Dysmotility with redirection of the thoracic esophagus. Satisfactory emptying of marshmallow and bagel from the esophagus into the stomach within two stripping waves. Report Dictated on Electronically Signed By: Yong Lao MD Electronically Signed Date/Time: 07/18/2024 3:11 PM EDT [facility] Radiology Study observation (narrative) [facility] RF Upper gastrointestinal tr act and Small bowel Single view W contrast POOrdered By: Yong Lao on 07-18-2024 [facility] 3606-24-2024 36 Name of caller: coleman Contact phone number: [phone] Relationship to Patient: t [facility] Provider: jose Practice: [facility] Chief Complaint/Reason for Call: Coleman states someone in office called wanting to know why pt was being seen with Jose. Caller states the reason pt is referred is because pt's family was concerned about pt's hiatal pt had done outside country. Please advise. Best time of day caller can be reached: AM Patient advised that office/PCP has 24-48 business hours to return their call: N/A [facility] 06-23-2024 29 Addended by: ROSA MARIA MILLER on: 06/23/2024 01:37 PM Modules accepted: Orders [facility] 06-23-2024 36 Lvm informing pt of her upcoming appt and testing, Gave time date location and prep. [facility] 36 Order placed. [facility] 36 Spoke to referring office and pt said that she thinks she has a hh and wants to seen to confirm. Can I get a order for UGI? . He said that she has trouble swallowing and bad indigestion [facility] 36on 06-16-2024 36 Lvm informing pt's that I need her OV from her PCP as she is new to [facility] so we can view past medical history. Also informing him that pt would be seen in [place] so we could schedule her test, appt and financial counseling on the same day [facility] 36 Pt's called and said they would prefer to go to [place] so whatever you need to do just go head and do it and call him with appointment tomorrow. [facility] 36 Lvm asking for a call back to schedule [facility] 06-15-2024 36 Message released to patient as written. Patient's further questions if applicable: Marlon is inquiring if we have the records that we need and would like to discuss which location would be best for Mary to go to. They definitely would like to see Dr. Garcia. Please call Marlon at [phone]. Were all questions from office addressed or relayed to the patient from encounter: Yes [facility] 36on 06-13-2024 36 LVM for patient to ask if she would prefer [place] or [place]. If she chooses [place], she will need appt, UGI and poss Financial Counseling , if [place] will only need appt with Dr Garcia. Will have to get records also prior to appt. Will try to call patient back tomorrow. DP [facility] 36 Pt called and wants to make an appointment to be seen for a HH and Gerd symptoms. 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 She has symptoms of indigestion with heavy foods and cannot lay flat. Also, c/o trouble swallowing especially meat. She is not only any meds for this. [facility] CHEST 1 VIEW (PICC/ET PLACEM ENTon 05-02-2024 CHEST 1 VIEW (PICC/ET PLACEMENT [place] [address] Patient: MARY COOK Phone#: : 1980 Age: 44 Gender: F Pt. Type: Out Account: [id number] Location: [facility] Ordering: CHARITO MONET Exam Date: 05/02/2024/8:38 Family Phys: Charge Code: 081008 Physician: Mcmullen Order #: [id number] Dose#: PROCEDURE: CHEST 1 VIEW (PICC/ET PLACEMENT) COMPARISON: [facility], CHEST 1 VIEW (PICC/ET PLACEMENT), 05/02/2024, 8:34. INDICATIONS: PICC Line Placement. FINDINGS: LUNGS: Nodular opacity seen on comparison exams is not included on the field of view. Evaluation of the parenchyma is limited by supine technique. VASCULATURE: Normal. Unremarkable pulmonary vasculature. CARDIAC: Normal. No cardiac silhouette abnormality or cardiomegaly. MEDIASTINUM: Normal. No visible mass or adenopathy. PLEURA: Normal. No effusion or pleural thickening. BONES: Normal. No fracture or visible bony lesion. OTHER: Right upper extremity approach PICC line, tip terminates just within the cavoatrial junction. CONCLUSION: 1. Right upper extremity PICC line, tip terminates just within the cavoatrial junction. Dictated by: Estefany Wise MD on 05/02/2024 at 9:25 Approved by: Estefany Wise MD on 05/02/2024 at 9:[address] [facility] CHEST 1 VIEW (PICC/ET PLACEMENT [place] [id number] Patient: MARY COOK Phone#: : 1980 Age: 44 Gender: F Pt. Type: Out Account: [id number] Location: [facility] Ordering: CHARITO MONET Exam Date: 05/02/2024/8:34 Family Phys: Charge Code: [id number] Physician: Mcmullen Order #: [id number] Dose#: PROCEDURE: CHEST 1 VIEW (PICC/ET PLACEMENT) COMPARISON: [facility], CHEST 1 VIEW (PICC/ET PLACEMENT), 05/02/2024, 8:28. INDICATIONS: PICC Line Placement. FINDINGS: LUNGS: Left midlung nodular opacity again visualized. Increased diffuse lung markings, may be due to interstitial changes versus AP supine technique. VASCULATURE: Normal. Unremarkable pulmonary vasculature. CARDIAC: Normal. No cardiac silhouette abnormality or cardiomegaly. MEDIASTINUM: Normal. No visible mass or adenopathy. PLEURA: Normal. No effusion or pleural thickening. BONES: Normal. No fracture or visible bony lesion. OTHER: Right upper extremity PICC line, tip terminates 1.3 cm beyond the cavoatrial junction. CONCLUSION: 1. Right upper extremity PICC line, tip terminates just past the cavoatrial junction, recommend withdrawing 1.0 cm. 2. Opacity at the left midlung recommend PA and lateral radiograph when the patient is clinically able. 3. Bilateral increased interstitial markings, likely due to supine technique, though cannot exclude interstitial infiltrates. Dictated by: Estefany Wise MD on 05/02/2024 at 9:00 Approved by: Estefany Wise MD on 05/02/2024 at 9:[address] [facility] CHEST 1 VIEW (PICC/ET PLACEMENT [place] [id number] Patient: MARY COOK Phone#: : 1980 Age: 44 Gender: F Pt. Type: Out Account: [id number] Location: [facility] Ordering: CHARITO MONET Exam Date: 05/02/2024/8:28 Family Phys: Charge Code: [id number] Physician: Mcmullen Order #: [id number] Dose#: PROCEDURE: CHEST 1 VIEW (PICC/ET PLACEMENT) COMPARISON: None. INDICATIONS: PICC Line Placement. FINDINGS: LUNGS: Nodular opacities in the left lateral mid lung measuring 0.6 x 0.9 cm and 0.5 x 0.7 cm. Increased interstitial markings may be secondary to supine technique. VASCULATURE: Normal. Unremarkable pulmonary vasculature. CARDIAC: Normal. No cardiac silhouette abnormality or cardiomegaly. MEDIASTINUM: Normal. No visible mass or adenopathy. PLEURA: Normal. No effusion or pleural thickening. BONES: Normal. No fracture or visible bony lesion. OTHER: Right upper extremity PICC line, tip terminates within the right atrium. CONCLUSION: 1. Right upper extremity PICC line, tip within the right atrium. 2. Left midlung nodular opacities. When the patient is clinically able recommend PA and lateral radiograph to evaluate for persistence. Dictated by: Estefany Wise MD on 05/02/2024 at 8:58 Approved by: Estefany Wise MD on 05/02/2024 at 9:[address] [facility] CBC W/Diff, Automatedon 04-10 PATH REV Reviewed Normal [facility] Comment on above: Result Comment: LEUK OPENIA Normocytic anemia. Clinical correlation suggested. Christiano Galvan D.O. 04/19/24 AMENDED REPORT 04/19/24 1356 PATH REV previously reported as: September foll Performed By: #### L 300.3900, L100.0100, L500.2500 #### [facility] [address] [place], [place], [id number] Absolute neutrophil countOrd ered By: Charito Monet on 04-18-2024 Neutrophils (Bld) [#/Vol] 1.3 10*3/uL Low 2.0-7.7 [facility] Albumin to globulin ratioOrd ered By: Charito Monet on 04-18-2024 Albumin/Globulin [Mass ratio] 0.4 {ratio} Low 0.9-2.4 [facility] Basophil percentageOrdered B y: Charito Monet on 04-18-2024 Basophils/100 WBC (Bld) 0.5 % 0-1 [facility] Bilirubin, totalOrdered By: Charito Monet on 04-18-2024 Bilirubin [Mass/Vol] 0.20 mg/dL 0.20-1.00 [facility] Comment on above: For patients on eltr ombopag therapy, use of Dimension [place] TBIL is not recommended. Blood urea nitrogen (BUN)/cr eatinine ratioOrdered By: Charito Monet on 04-18-2024 Urea nitrogen/Creatinine [Mass ratio] 16.3 mg/mg 10-20 [facility] Carbon dioxide measurementOr dered By: Charito Monet on 04-18-2024 CO2 [Moles/Vol] 29.0 mmol/L 21.0-32.0 [facility] Chloride measurementOrdered By: Charito Monet on 04-18-2024 Chloride [Moles/Vol] 106 mmol/L 98-107 [facility] Comprehensive Metabolic Prof ilon 04-18-2024 Albumin [Mass/Vol] 2.7 g/dL Low 3.2-5.0 [facility] Comment on above: Performed By: #### L 300.3900, L100.0100, L500.2500 #### [facility] [address] [place], [address] Albumin/Globulin [Mass ratio] 0.4 {ratio} Low 0.9-2.4 [facility] Comment on above: Performed By: #### L 300.3900, L100.0100, L500.2500 #### [facility] [address] [place], [address] ALK P 83 U/L Normal 45-117 [facility] Comment on above: Performed By: #### L 300.3900, L100.0100, L500.2500 #### [facility] [address] [place], [address] ALT [Catalytic activity/Vol] 15 U/L Normal 13-56 [facility] Comment on above: Performed By: #### L 300.3900, L100.0100, L500.2500 #### [facility] [address] [place], [address] AST [Catalytic activity/Vol] 13 U/L Low 15-37 [facility] Comment on above: Performed By: #### L 300.3900, L100.0100, L500.2500 #### [facility] [address] [place], [address] Bilirubin [Mass/Vol] 0.20 mg/dL Normal 0.20-1.00 [facility] Comment on above: Result Comment: For patients on eltrombopag therapy, use of Dimension [place] TBIL is not recommended. Performed By: #### L 300.3900, L100.0100, L500.2500 #### [facility] [address] [place], [address] BUN/CRE 16.3 RATIO Normal 10-20 [facility] Comment on above: Performed By: #### L 300.3900, L100.0100, L500.2500 #### [facility] [address] [place], [address] CA,Total 8.8 mg/dL Normal 8.5-10.1 [facility] Comment on above: Performed By: #### L 300.3900, L100.0100, L500.2500 #### [facility] [address] [place], [address] Chloride [Moles/Vol] 106 mmol/L Normal 98-107 [facility] Comment on above: Performed By: #### L 300.3900, L100.0100, L500.2500 #### [facility] [address] [place], [address] CO2 [Moles/Vol] 29.0 mmol/L Normal 21.0-32.0 [facility] Comment on above: Performed By: #### L 300.3900, L100.0100, L500.2500 #### [facility] [address] [place], [address] Creatinine [Mass/Vol] 0.74 mg/dL Normal 0.55-1.02 [facility] Comment on above: Result Comment: The validity of the calculated GFR GFRAA in patients over 70 years has not been determined. Clinical correlation is essential. Performed By: #### L 300.3900, L100.0100, L500.2500 #### [facility] [address] [place], [address] EST GFR - AA 111 mL/min Normal >60 [facility] Comment on above: Result Comment: Afri can Citizen Of [place] GFR Calc Performed By: #### L 300.3900, L100.0100, L500.2500 #### [facility] [address] [place], [address] GAP 5 Normal 5-15 [facility] Comment on above: Performed By: #### L 300.3900, L100.0100, L500.2500 #### [facility] [address] [place], [address] GFR/1.73 sq M.predicted among non-blacks MDRD (S/P/Bld) [Vol rate/Area] 92 mL/min/{1.73_m2} Normal >60 [facility] Comment on above: Result Comment: Non- GFR Calc Performed By: #### L 300.3900, L100.0100, L500.2500 #### [facility] [address] [place], [address] Globulin (S) [Mass/Vol] 6.3 g/dL High 2.2-4.2 [facility] Comment on above: Performed By: #### L 300.3900, L100.0100, L500.2500 #### [facility] [address] [place], [address] Glucose [Mass/Vol] 107 mg/dL High 74-106 [facility] Comment on above: Result Comment: Fast ing Glucose result from 100 to 125 mg/dL suggests IMPAIRED HOMEOSTASIS per A.D.A. criteria. Performed By: #### L 300.3900, L100.0100, L500.2500 #### [facility] [address] [place], [address] Potassium [Moles/Vol] 3.9 mmol/L Normal 3.5-5.1 [facility] Comment on above: Performed By: #### L 300.3900, L100.0100, L500.2500 #### [facility] [address] [place], [address] Sodium [Moles/Vol] 139 mmol/L Normal 136-145 [facility] Comment on above: Performed By: #### L 300.3900, L100.0100, L500.2500 #### [facility] [address] [place], [address] T PROT 9.0 g/dL High 6.4-8.2 [facility] Comment on above: Performed By: #### L 300.3900, L100.0100, L500.2500 #### [facility] [address] [place], [address] Urea nitrogen [Mass/Vol] 12 mg/dL Normal 7-18 [facility] Comment on above: Performed By: #### L 300.3900, L100.0100, L500.2500 #### [facility] [address] [place], [address] Dacrocytes LM Ql (Bld)Ordere d By: Charito Monet on 04-18-2024 Tear Drop Cells RARE [facility] Eosinophil percentageOrdered By: Charito Monet on 04-18-2024 Eosinophils/100 WBC (Bld) 4.0 % 0-5 [facility] Erythrocyte basophilic stipp ling detectionOrdered By: Charito Monet on 04-18-2024 Basophilic stippling LM Ql (Bld) 1+ [facility] Erythrocyte distribution wid th (RBC) [Ratio]Ordered By: Charito Monet on 04-18-2024 Erythrocyte distribution width (RBC) [Entitic vol] 47.6 fL High 35.1-43.9 [facility] Erythrocyte distribution wid th ratioOrdered By: Charito Monet on 04-18-2024 Erythrocyte distribution width (RBC) [Ratio] 14.8 % High 11.6-14.6 [facility] Estimated glomerular filtrat ion rate (GFR) AmericanOrdered By: Charito Monet on 04-18-2024 Estimated GFR (MDRD) Amer 111 mL/min >60 [facility] Comment on above: GFR Calc Ferritinon 04-18-2024 Ferritin [Mass/Vol] 96 ng/mL Normal - [facility] Comment on above: Performed By: #### L 300.3900, L100.0100, L500.2500 #### [facility] [address] [place], [address] Ferritin measurementOrdered By: Charito Monet on 04-18-2024 Ferritin [Mass/Vol] 96 ng/mL 8- [facility] Glomerular filtration rate ( GFR) estimationOrdered By: Charito Monet on 04-18-2024 Estimated GFR (MDRD) Non-Af Amer 92 mL/min >60 [facility] Comment on above: Non- GFR Calc Glucose measurementOrdered B y: Charito Monet on 04-18-2024 Glucose [Mass/Vol] 107 mg/dL High 74-106 [facility] Comment on above: Fasting Glucose resu lt from 100 to 125 mg/dL suggests IMPAIRED HOMEOSTASIS per A.D.A. criteria. Hematocrit Auto (Bld) [Volum e fraction]Ordered By: Charito Monet on 04-18-2024 Hematocrit (Bld) [Volume fraction] 34.6 % Low 37-47 [facility] Hemoglobin measurementOrdere d By: Charito Monet on 04-18-2024 Hemoglobin (Bld) [Mass/Vol] 10.7 g/dL Low 12.0-15. 0 [facility] Immature granulocytes/100 WB C Auto (Bld)Ordered By: Charito Monet on 04-18-2024 Immature granulocytes/100 WBC (Bld) 0.500 % 0.0-0.9 [facility] Comment on above: IG% - Immature Granu locytes (promyelocytes, myelocytes and metamyelocytes) > 1% indicates that a LEFT SHIFT is Present. Ironon 04-18-2024 Iron [Mass/Vol] 24 ug/dL Low 50-170 [facility] Comment on above: Performed By: #### L 300.3900, L100.0100, L500.2500 #### [facility] [address] [place], [address] Iron (Unsp spec) [Mass/Mass] Ordered By: Charito Monet on 04-18-2024 Iron [Mass/Vol] 24 ug/dL Low 50-170 [facility] - Chemistry and C hemistry - challengeOrdered By: Charito Monet on 04-18-2024 AST [Catalytic activity/Vol] 13 U/L Low 15-37 [facility] - Hematology and Cell countsOrdered By: Charito Monet on 04-18-2024 Anisocytosis Ql (Bld) 1+ [facility] Lymphocytes Auto (Unsp spec) [#/Vol]Ordered By: Charito Monet on 04-18-2024 Lymphocytes (Bld) [#/Vol] 0.54 10*3/uL Low 0.83-4.5 1 [facility] Lymphocytes/100 WBC Auto (Un sp spec)Ordered By: Charito Monet on 04-18-2024 Lymphocytes/100 WBC (Bld) 26.7 % 19-41 [facility] MCV (mean corpuscular volume ) determinationOrdered By: Charito Monet on 04-18-2024 MCV (RBC) [Entitic vol] 87.6 fL 81-99 W [facility] Manual differential comment Vishal (Bld) [Interp]Ordered By: Charito Monet on 04-18-2024 Differential Comment SCANNED [facility] Mean corpuscular hemoglobin (MCH) determinationOrdered By: Charito Monet on 04-18-2024 MCH (RBC) [Entitic mass] 27.1 pg 27.0-32.0 [facility] Mean corpuscular hemoglobin concentration (MCHC) determinationOrdered By: Charito Monet on 04-18-2024 MCHC (RBC) [Mass/Vol] 30.9 g/dL Low 32-36 [facility] Mean platelet volume determi nationOrdered By: Charito Monet on 04-18-2024 Platelet mean volume (Bld) [Entitic vol] 9.7 fL 6.2-12.0 [facility] Monocyte percentageOrdered B y: Charito Monet on 04-18-2024 Monocytes/100 WBC (Bld) 5.4 % 0-10 [facility] Neutrophil percentageOrdered By: Charito Monet on 04-18-2024 Neutrophils/100 WBC (Bld) 62.9 % 47-70 [facility] Nucleated red blood cell per centageOrdered By: Charito Monet on 04-18-2024 Nucleated RBC/100 WBC (Bld) [Ratio] 0 % 0-5 [facility] Ovalocytes LM Ql (Bld)Ordere d By: Charito Monet on 04-18-2024 Ovalocytes 1+ [facility] Pathologist review Vishal (Unsp spec) [Interp]Ordered By: Charito Monet on 04-18-2024 Differential Pathologist's Review Reviewed [facility] Comment on above: Previous reported re sult: Radha ramirez Edited by: BRIE on 04/19/24:1356LEUKOPENIANormocytic anemia.Clinical correlation suggested.Christiano Galvan D.O. 04/19/24 AMENDED REPORT 04/19/24 1356 PATH REV previously reported as: September Platelet countOrdered By: Brien Monet on 04-18-2024 Platelets (Bld) [#/Vol] 295 10*3/uL 150-450 [facility] Platelets LM Ql (Bld)Ordered By: Charito Monet on 04-18-2024 Platelet Estimate ADEQUATE ADEQ [facility] Potassium measurementOrdered By: Charito Monet on 04-18-2024 Potassium [Moles/Vol] 3.9 mmol/L 3.5-5.1 [facility] RBC Auto (Bld) [#/Vol]Ordere d By: Charito Monet on 04-18-2024 RBC (Bld) [#/Vol] 3.95 10*6/uL Low 4.2-5.4 [facility] Serum anion gap measurementO rdered By: Charito Monet on 04-18-2024 Anion gap [Moles/Vol] 5 mmol/L 5-15 [facility] Serum globulin measurementOr dered By: Charito Monet on 04-18-2024 Globulin (S) [Mass/Vol] 6.3 g/dL High 2.2-4.2 [facility] Serum or plasma alanine chirinos otransferase (ALT) measurementOrdered By: Charito Monet on 04-18-2024 ALT [Catalytic activity/Vol] 15 U/L 13-56 [facility] Serum or plasma albumin sara urement (mass/volume)Ordered By: Charito Monet on 04-18-2024 Albumin [Mass/Vol] 2.7 g/dL Low 3.2-5.0 [facility] Serum or plasma alkaline siobhan sphatase measurementOrdered By: Charito Monet on 04-18-2024 ALP [Catalytic activity/Vol] 83 U/L 45-117 [facility] Serum or plasma calcium sara urement (mass/volume)Ordered By: Charito Monet on 04-18-2024 Calcium [Mass/Vol] 8.8 mg/dL 8.5-10.1 [facility] Serum or plasma creatinine m easurement (mass/volume)Ordered By: Charito Monet on 04-18-2024 Creatinine [Mass/Vol] 0.74 mg/dL 0.55-1.02 [facility] Comment on above: The validity of the calculated GFR & GFRAA in patients over 70 years has not been determined. Clinical correlation is essential. Serum or plasma urea nitroge n measurement (mass/volume)Ordered By: Charito Monet on 04-18-2024 Urea nitrogen [Mass/Vol] 12 mg/dL 7-18 [facility] Sodium levelOrdered By: Anand Monet on 04-18-2024 Sodium [Moles/Vol] 139 mmol/L 136-145 [facility] Total proteinOrdered By: Hipolito Monet on 04-18-2024 Protein [Mass/Vol] 9.0 g/dL High 6.4-8.2 [facility] White blood cell (WBC) count Ordered By: Charito Monet on 04-18-2024 WBC (Bld) [#/Vol] 2.0 10*3/uL Low 4.4-11.0 [facility] BNP,B-Type NATRIURETIC PEPTI Sylvester 01-25-2024 Natriuretic peptide B (Bld) [Mass/Vol] 15.5 pg/mL Normal 0-100 [facility] Comment on above: Performed By: #### L 100.0100, L500.4050 #### [facility] [address] [place], [address] CBC W/Diff, Automatedon 01-09 OVALOCYTE 2+ Normal [facility] Comment on above: Performed By: #### L 100.0100, L500.4050 #### [facility] [facility] [address] [place], [address] PLT EST ADEQUATE Normal ADEQ [facility] Comment on above: Performed By: #### L 100.0100, L500.4050 #### [facility] [address] [place], [address] PLT MORPH CLUMPED Normal [facility] Comment on above: Performed By: #### L 100.0100, L500.4050 #### [facility] [address] [place], [address] SMEAR COMMENT SCANNED Normal [facility] Comment on above: Performed By: #### L 100.0100, L500.4050 #### [facility] [address] [place], [address] Comprehensive Metabolic Prof ilon 01-25-2024 Albumin [Mass/Vol] 2.7 g/dL Low 3.2-5.0 [facility] Comment on above: Performed By: #### L 100.0100, L500.4050 #### [facility] [address] [place], [address] Albumin/Globulin [Mass ratio] 0.4 {ratio} Low 0.9-2.4 [facility] Comment on above: Performed By: #### L 100.0100, L500.4050 #### [facility] [address] [place], [address] ALK P 90 U/L Normal 45-117 [facility] Comment on above: Performed By: #### L 100.0100, L500.4050 #### [facility] [address] [place], [address] ALT [Catalytic activity/Vol] 23 U/L Normal 13-56 [facility] Comment on above: Performed By: #### L 100.0100, L500.4050 #### [facility] [address] [place], [address] AST [Catalytic activity/Vol] 26 U/L Normal 15-37 [facility] Comment on above: Performed By: #### L 100.0100, L500.4050 #### [facility] [address] [place], [address] Bilirubin [Mass/Vol] 0.30 mg/dL Normal 0.20-1.00 [facility] Comment on above: Result Comment: For patients on eltrombopag therapy, use of Dimension [place] TBIL is not recommended. Performed By: #### L 100.0100, L500.4050 #### [facility] [address] [place], [address] BUN/CRE 20.1 RATIO High 10-20 [facility] Comment on above: Performed By: #### L 100.0100, L500.4050 #### [facility] [address] [place], [address] CA,Total 8.8 mg/dL Normal 8.5-10.1 [facility] Comment on above: Performed By: #### L 100.0100, L500.4050 #### [facility] [address] [place], [address] Chloride [Moles/Vol] 104 mmol/L Normal 98-107 [facility] Comment on above: Performed By: #### L 100.0100, L500.4050 #### [facility] [address] [place], [address] CO2 [Moles/Vol] 26.0 mmol/L Normal 21.0-32.0 [facility] Comment on above: Performed By: #### L 100.0100, L500.4050 #### [facility] [address] [place], [address] Creatinine [Mass/Vol] 0.70 mg/dL Normal 0.55-1.02 [facility] Comment on above: Result Comment: The validity of the calculated GFR GFRAA in patients over 70 years has not been determined. Clinical correlation is essential. Performed By: #### L 100.0100, L500.4050 #### [facility] [address] [place], [address] EST GFR - AA 118 mL/min Normal >60 [facility] Comment on above: Result Comment: Afri can Citizen [place] GFR Calc Performed By: #### L 100.0100, L500.4050 #### [facility] [address] [place], [address] GAP 7 Normal 5-15 [facility] Comment on above: Performed By: #### L 100.0100, L500.4050 #### [facility] [address] [place], [address] GFR/1.73 sq M.predicted among non-blacks MDRD (S/P/Bld) [Vol rate/Area] 98 mL/min/{1.73_m2} Normal >60 [facility] Comment on above: Result Comment: Non- GFR Calc Performed By: #### L 100.0100, L500.4050 #### [facility] [address] [place], [address] Globulin (S) [Mass/Vol] 6.2 g/dL High 2.2-4.2 [facility] Comment on above: Performed By: #### L 100.0100, L500.4050 #### [facility] [address] [place], [address] Glucose [Mass/Vol] 76 mg/dL Normal 74-106 [facility] Comment on above: Performed By: #### L 100.0100, L500.4050 #### [facility] [address] [place], [address] Potassium [Moles/Vol] 4.1 mmol/L Normal 3.5-5.1 [facility] Comment on above: Performed By: #### L 100.0100, L500.4050 #### [facility] [address] [place], [address] Sodium [Moles/Vol] 137 mmol/L Normal 136-145 [facility] Comment on above: Performed By: #### L 100.0100, L500.4050 #### [facility] [address] [place], [address] T PROT 8.9 g/dL High 6.4-8.2 [facility] Comment on above: Performed By: #### L 100.0100, L500.4050 #### [facility] [address] [place], [address] Urea nitrogen [Mass/Vol] 14 mg/dL Normal 7-18 [facility] Comment on above: Performed By: #### L 100.0100, L500.4050 #### [facility] [address] [place], [address] Lipid Profileon 01-25-2024 Cholesterol [Mass/Vol] 154 mg/dL Normal 200 [facility] Comment on above: Result Comment: <200 mg/dL Desirable 200-240 mg/dL Borderline >240 mg/dL High Risk Performed By: #### L 100.0100, L500.4050 #### [facility] [address] [place], [address] Cholesterol in HDL [Mass/Vol] 37 mg/dL Low [facility] Comment on above: Result Comment: The drugs N-Acetylcysteine and Metamizole may falsely depress this assay. Reference Range HDL <40 mg/dL Low HDL Cholesterol HDL >or= 60 mg/dL High HDL Cholesterol Performed By: #### L 100.0100, L500.4050 #### [facility] [address] [place], [address] Cholesterol in LDL [Mass/Vol] 103 mg/dL Normal 0-130 [facility] Comment on above: Performed By: #### L 100.0100, L500.4050 #### [facility] [address] [place], [address] Cholesterol in VLDL [Mass/Vol] 14 mg/dL Normal 5-40 [facility] Comment on above: Performed By: #### L 100.0100, L500.4050 #### [facility] [address] [place], [address] Triglyceride [Mass/Vol] 69 mg/dL Normal [facility] Comment on above: Result Comment: The drugs N-Acetylcysteine and Metamizole may falsely depress this assay. Serum Triglycerides Reference Interval Normal <150 mg/dL Borderline high 150 - 199 mg/dL High 200 - 499 mg/dL Very High > or = 500 mg/dL Performed By: #### L 100.0100, L500.4050 #### [facility] [address] [place], [address] Thyroid Stim Hormone (TSH)on 01-25-2024 TSH 3.160 uIU/mL Normal 0.358-3.740 [facility] Comment on above: Performed By: #### L 100.0100, L500.4050 #### [facility] [address] [place], [address] CBC W/Diff, Automatedon 08-2 PATH REV Reviewed Normal [facility] Comment on above: Result Comment: ABSO LUTE LYMPHOPENIA Clinical correlation suggested. Christiano Galvan D.O. 01/04/24 AMENDED REPORT 01/04/24 1142 PATH REV previously reported as: September Performed By: #### L 500.4050, L100.0100, L503.6150, L503.6550 #### [facility] [address] [place], [address] Comprehensive Metabolic Prof ilon 01-01-2024 Albumin [Mass/Vol] 2.9 g/dL Low 3.2-5.0 [facility] Comment on above: Performed By: #### L 500.4050, L100.0100, L503.6150, L503.6550 #### [facility] [address] [place], [address] Albumin/Globulin [Mass ratio] 0.4 {ratio} Low 0.9-2.4 [facility] Comment on above: Performed By: #### L 500.4050, L100.0100, L503.6150, L503.6550 #### [facility] [address] [place], [address] ALK P 104 U/L Normal 45-117 [facility] Comment on above: Performed By: #### L 500.4050, L100.0100, L503.6150, L503.6550 #### [facility] [address] [place], [address] ALT [Catalytic activity/Vol] 26 U/L Normal 13-56 [facility] Comment on above: Performed By: #### L 500.4050, L100.0100, L503.6150, L503.6550 #### [facility] [address] [place], [address] AST [Catalytic activity/Vol] 23 U/L Normal 15-37 [facility] Comment on above: Performed By: #### L 500.4050, L100.0100, L503.6150, L503.6550 #### [facility] [address] [place], [address] Bilirubin [Mass/Vol] 0.20 mg/dL Normal 0.20-1.00 [facility] Comment on above: Result Comment: For patients on eltrombopag therapy, use of Dimension [place] TBIL is not recommended. Performed By: #### L 500.4050, L100.0100, L503.6150, L503.6550 #### [facility] [address] [place], [address] BUN/CRE 17.7 RATIO Normal 10-20 [facility] Comment on above: Performed By: #### L 500.4050, L100.0100, L503.6150, L503.6550 #### [facility] [address] [place], [address] CA,Total 8.8 mg/dL Normal 8.5-10.1 [facility] Comment on above: Performed By: #### L 500.4050, L100.0100, L503.6150, L503.6550 #### [facility] [address] [place], [address] Chloride [Moles/Vol] 103 mmol/L Normal 98-107 [facility] Comment on above: Performed By: #### L 500.4050, L100.0100, L503.6150, L503.6550 #### [facility] [address] [place], [address] CO2 [Moles/Vol] 28.0 mmol/L Normal 21.0-32.0 [facility] Comment on above: Performed By: #### L 500.4050, L100.0100, L503.6150, L503.6550 #### [facility] [address] [place], [address] Creatinine [Mass/Vol] 0.74 mg/dL Normal 0.55-1.02 [facility] Comment on above: Result Comment: The validity of the calculated GFR GFRAA in patients over 70 years has not been determined. Clinical correlation is essential. Performed By: #### L 500.4050, L100.0100, L503.6150, L503.6550 #### [facility] [address] [place], [address] EST GFR - AA 111 mL/min Normal >60 [facility] Comment on above: Result Comment: Afri can Citizen [place] GFR Calc Performed By: #### L 500.4050, L100.0100, L503.6150, L503.6550 #### [facility] [address] [place], [address] GAP 6 Normal 5-15 [facility] Comment on above: Performed By: #### L 500.4050, L100.0100, L503.6150, L503.6550 #### [facility] [address] [place], [address] GFR/1.73 sq M.predicted among non-blacks MDRD (S/P/Bld) [Vol rate/Area] 92 mL/min/{1.73_m2} Normal >60 [facility] Comment on above: Result Comment: Non- GFR Calc Performed By: #### L 500.4050, L100.0100, L503.6150, L503.6550 #### [facility] [address] [place], [address] Globulin (S) [Mass/Vol] 7.0 g/dL High 2.2-4.2 [facility] Comment on above: Performed By: #### L 500.4050, L100.0100, L503.6150, L503.6550 #### [facility] [address] [place], [address] Glucose [Mass/Vol] 127 mg/dL High 74-106 [facility] Comment on above: Result Comment: Fast ing Glucose result greater than or equal to 126 mg/dL suggests DIABETES MELLITUS per A.D.A. criteria. Performed By: #### L 500.4050, L100.0100, L503.6150, L503.6550 #### [facility] [address] [place], [address] Potassium [Moles/Vol] 4.2 mmol/L Normal 3.5-5.1 [facility] Comment on above: Performed By: #### L 500.4050, L100.0100, L503.6150, L503.6550 #### [facility] [address] [place], [address] Sodium [Moles/Vol] 137 mmol/L Normal 136-145 [facility] Comment on above: Performed By: #### L 500.4050, L100.0100, L503.6150, L503.6550 #### [facility] [address] [place], [address] T PROT 9.9 g/dL High 6.4-8.2 [facility] Comment on above: Performed By: #### L 500.4050, L100.0100, L503.6150, L503.6550 #### [facility] [address] [place], [address] Urea nitrogen [Mass/Vol] 13 mg/dL Normal 7-18 [facility] Comment on above: Performed By: #### L 500.4050, L100.0100, L503.6150, L503.6550 #### [facility] [address] [place], [address] Ferritinon 01-01-2024 Ferritin [Mass/Vol] 206 ng/mL Normal 8-252 [facility] Comment on above: Performed By: #### L 100.0100, L500.4050 #### [facility] [address] [place], [address] Ironon 01-01-2024 Iron [Mass/Vol] 29 ug/dL Low 50-170 [facility] Comment on above: Performed By: #### L 500.4050, L100.0100, L503.6150, L503.6550 #### [facility] [address] [place], [address] CBC W/Diff, Automatedon 07-2 Absolute Lymph 0.64 X10 3/uL Low 0.83-4.51 [facility] Comment on above: Performed By: #### L 100.0100, L500.4050 #### [facility] [address] [place], [address] Absolute Neut 2.1 X10 3/uL Normal 2.0-7.7 [facility] Comment on above: Performed By: #### L 100.0100, L500.4050 #### [facility] [address] [place], [address] Basophils/100 WBC (Bld) 0.3 % Normal 0-1 [facility] Comment on above: Performed By: #### L 100.0100, L500.4050 #### [facility] [address] [place], [address] Eosinophils/100 WBC (Bld) 3.7 % Normal 0-5 [facility] Comment on above: Performed By: #### L 100.0100, L500.4050 #### [facility] [address] [place], [address] Erythrocyte distribution width (RBC) [Ratio] 16.8 % High 11.6-14.6 [facility] Comment on above: Performed By: #### L 100.0100, L500.4050 #### [facility] [address] [place], [address] Hematocrit (Bld) [Volume fraction] 30.3 % Low 37-47 [facility] Comment on above: Performed By: #### L 100.0100, L500.4050 #### [facility] [address] [place], [address] Hemoglobin (Bld) [Mass/Vol] 9.2 g/dL Low 12.0-15. 0 [facility] Comment on above: Performed By: #### L 100.0100, L500.4050 #### [facility] [address] [place], [address] IG% 0.300 Normal 0.0-0.9 [facility] Comment on above: Result Comment: IG% - Immature Granulocytes (promyelocytes, myelocytes and metamyelocytes) > 1% indicates that a LEFT SHIFT is Present. Performed By: #### L 100.0100, L500.4050 #### [facility] [address] [place], [address] Lymphocytes/100 WBC (Bld) 21.7 % Normal 19-41 [facility] Comment on above: Performed By: #### L 100.0100, L500.4050 #### [facility] [address] [place], [address] MCH (RBC) [Entitic mass] 23.7 pg Low 27.0-32.0 [facility] Comment on above: Performed By: #### L 100.0100, L500.4050 #### [facility] [address] [place], [address] MCHC (RBC) [Mass/Vol] 30.4 g/dL Low 32-36 [facility] Comment on above: Performed By: #### L 100.0100, L500.4050 #### [facility] [address] [place], [address] MCV (RBC) [Entitic vol] 77.9 fL Low 81-99 [facility] Comment on above: Performed By: #### L 100.0100, L500.4050 #### [facility] [address] [place], [address] Monocytes/100 WBC (Bld) 3.7 % Normal 0-10 [facility] Comment on above: Performed By: #### L 100.0100, L500.4050 #### [facility] [address] [place], [address] Neutrophils/100 WBC (Bld) 70.3 % High 47-70 [facility] Comment on above: Performed By: #### L 100.0100, L500.4050 #### [facility] [address] [place], [address] Nucleated RBC (Bld) [#/Vol] 0 10*3/uL Normal 0-5 [facility] Comment on above: Performed By: #### L 100.0100, L500.4050 #### [facility] [address] [place], [address] Platelet mean volume (Bld) [Entitic vol] 11.2 fL Normal 6.2-12.0 [facility] Comment on above: Performed By: #### L 100.0100, L500.4050 #### [facility] [address] [place], [address] Platelets (Bld) [#/Vol] 248 10*3/uL Normal 150-450 [facility] Comment on above: Performed By: #### L 100.0100, L500.4050 #### [facility] [address] [place], [address] RBC (Bld) [#/Vol] 3.89 10*6/uL Low 4.2-5.4 [facility] Comment on above: Performed By: #### L 100.0100, L500.4050 #### [facility] [address] [place], [address] RDW SD 46.2 fl High 35.1-43.9 [facility] Comment on above: Performed By: #### L 100.0100, L500.4050 #### [facility] [address] [place], [address] WBC (Bld) [#/Vol] 3.0 10*3/uL Low 4.4-11.0 [facility] Comment on above: Performed By: #### L 100.0100, L500.4050 #### [facility] [address] [place], [address] Comprehensive Metabolic Prof [facility] 12-07-2023 Albumin [Mass/Vol] 2.5 g/dL Low 3.2-5.0 [facility] Comment on above: Performed By: #### L 100.0100, L500.4050 #### [facility] [address] [place], [address] Albumin/Globulin [Mass ratio] 0.4 {ratio} Low 0.9-2.4 [facility] Comment on above: Performed By: #### L 100.0100, L500.4050 #### [facility] [address] [place], [address] ALK P 93 U/L Normal 45-117 [facility] Comment on above: Performed By: #### L 100.0100, L500.4050 #### [facility] [address] [place], [address] ALT [Catalytic activity/Vol] 23 U/L Normal 13-56 [facility] Comment on above: Performed By: #### L 100.0100, L500.4050 #### [facility] [address] [place], [address] AST [Catalytic activity/Vol] 38 U/L High 15-37 [facility] Comment on above: Result Comment: Mode rate Hemolysis, Result may be falsely increased. Performed By: #### L 100.0100, L500.4050 #### [facility] [address] [place], [address] Bilirubin [Mass/Vol] 0.40 mg/dL Normal 0.20-1.00 [facility] Comment on above: Result Comment: For patients on eltrombopag therapy, use of Dimension [place] TBIL is not recommended. Performed By: #### L 100.0100, L500.4050 #### [facility] [address] [place], [address] BUN/CRE 21.2 RATIO High 10-20 [facility] Comment on above: Performed By: #### L 100.0100, L500.4050 #### [facility] [address] [place], [address] CA,Total 8.5 mg/dL Normal 8.5-10.1 [facility] Comment on above: Performed By: #### L 100.0100, L500.4050 #### [facility] [address] [place], [address] Chloride [Moles/Vol] 107 mmol/L Normal 98-107 [facility] Comment on above: Performed By: #### L 100.0100, L500.4050 #### [facility] [address] [place], [address] CO2 [Moles/Vol] 27.0 mmol/L Normal 21.0-32.0 [facility] Comment on above: Performed By: #### L 100.0100, L500.4050 #### [facility] [address] [place], [address] Creatinine [Mass/Vol] 0.71 mg/dL Normal 0.55-1.02 [facility] Comment on above: Result Comment: The validity of the calculated GFR GFRAA in patients over 70 years has not been determined. Clinical correlation is essential. Performed By: #### L 100.0100, L500.4050 #### [facility] [address] [place], [address] EST GFR - AA 116 mL/min Normal >60 [facility] Comment on above: Result Comment: Afri can Citizen [place] GFR Calc Performed By: #### L 100.0100, L500.4050 #### [facility] [address] [place], [address] GAP 4 Low 5-15 [facility] Comment on above: Performed By: #### L 100.0100, L500.4050 #### [facility] [address] [place], [address] GFR/1.73 sq M.predicted among non-blacks MDRD (S/P/Bld) [Vol rate/Area] 96 mL/min/{1.73_m2} Normal >60 [facility] Comment on above: Result Comment: Non- GFR Calc Performed By: #### L 100.0100, L500.4050 #### [facility] [address] [place], [address] Globulin (S) [Mass/Vol] 6.0 g/dL High 2.2-4.2 [facility] Comment on above: Performed By: #### L 100.0100, L500.4050 #### [facility] [address] [place], [address] Glucose [Mass/Vol] 105 mg/dL Normal 74-106 [facility] Comment on above: Result Comment: Fast ing Glucose result from 100 to 125 mg/dL suggests IMPAIRED HOMEOSTASIS per A.D.A. criteria. Performed By: #### L 100.0100, L500.4050 #### [facility] [address] [place], [address] Potassium [Moles/Vol] 4.4 mmol/L Normal 3.5-5.1 [facility] Comment on above: Result Comment: Mode rate Hemolysis, Result may be falsely increased. Performed By: #### L 100.0100, L500.4050 #### [facility] [address] [place], [address] Sodium [Moles/Vol] 138 mmol/L Normal 136-145 [facility] Comment on above: Performed By: #### L 100.0100, L500.4050 #### [facility] [address] [place], [address] T PROT 8.5 g/dL High 6.4-8.2 [facility] Comment on above: Performed By: #### L 100.0100, L500.4050 #### [facility] [address] [place], [address] Urea nitrogen [Mass/Vol] 15 mg/dL Normal 7-18 [facility] Comment on above: Performed By: #### L 100.0100, L500.4050 #### [facility] [address] [place], [address] Ferritinon 12-07-2023 Ferritin [Mass/Vol] 184 ng/mL Normal 8-252 [facility] Comment on above: Performed By: #### L 300.3900, L100.0100, L500.2500 #### [facility] [address] [place], [address] Ironon 12-07-2023 Iron [Mass/Vol] 24 ug/dL Low 50-170 [facility] Comment on above: Result Comment: Mode rate Hemolysis, Result may be falsely increased. Performed By: #### L 300.3900, L100.0100, L500.2500 #### [facility] [address] [place], [address] CBC W/Diff, Automatedon 10-09 PATH REV Reviewed Normal [facility] [facility] Comment on above: Result Comment: Leuk openia and neutropenia.Normocytic anemia. Clinical correlation necessary. AMENDED REPORT 10/19/23 1357 PATH REV previously reported as: September foll Performed By: #### L 100.0100 #### [facility] [address] [place], [address] Absolute lymphocyte countOrd ered By: Dr. Sanchez on 06-23-2022 Lymphocytes Auto (Unsp spec) [#/Vol] 0.97 10*3/uL 0.83-4.51 [facility] Basophil percentageOrdered B y: Dr. Sanchez on 06-23-2022 Basophils/100 WBC (Bld) 0.2 % 0-1 [facility] Bilirubin [Mass/Vol] 0.30 mg/dL 0.20-1.00 [facility] Comment on above: For patients on eltr ombopag therapy, use of Dim[place] TBIL is not recommended. Chloride [Moles/Vol] 104 mmol/L 98-107 [facility] Eosinophils/100 WBC (Bld) 1.4 % 0-5 [facility] Glucose [Mass/Vol] 85 mg/dL 74-106 [facility] Neutrophils (Bld) [#/Vol] 3.1 10*3/uL 2.0-7.7 [facility] Neutrophils/100 WBC (Bld) 71.5 % 47-70 [facility] Potassium [Moles/Vol] 3.4 mmol/L 3.5-5.1 [facility] Protein [Mass/Vol] 9.2 g/dL 6.4-8.2 [facility] Sodium [Moles/Vol] 137 mmol/L 136-145 [facility] WBC (Bld) [#/Vol] 4.4 10*3/uL 4.4-11.0 [facility] Blood erythrocytes count (nu mber/volume)Ordered By: Dr. Sanchez on 06-23-2022 RBC (Bld) [#/Vol] 4.81 10*6/uL 4.2-5.4 [facility] Blood hemoglobin measurement (mass/volume)Ordered By: Dr. Sanchez on 06-23-2022 Hemoglobin (Bld) [Mass/Vol] 12.2 g/dL 12.0-15. 0 [facility] Blood lymphocytes/100 leukoc ytesOrdered By: Dr. Sanchez on 06-23-2022 Lymphocytes/100 WBC (Bld) 22.1 % 19-41 [facility] Blood monocytes/100 leukocyt esOrdered By: Dr. Sanchez on 06-23-2022 Monocytes/100 WBC (Bld) 4.6 % 0-10 [facility] Blood platelet mean volumeOr dered By: Dr. Sanchez on 06-23-2022 Platelet mean volume (Bld) [Entitic vol] 9.3 fL 6.2-12.0 [facility] Determination of erythrocyte mean corpuscular volume (MCV)Ordered By: Dr. Sanchez on 06-23-2022 MCV (RBC) [Entitic vol] 83.4 fL 81-99 [facility] Hematocrit Auto (Bld) [Volum e fraction]Ordered By: Dr. Sanchez on 06-23-2022 Hematocrit (Bld) [Volume fraction] 40.1 % 37-47 [facility] - Chemistry and C hemistry - challengeOrdered By: Dr. Sanchez on 06-23-2022 ALP [Catalytic activity/Vol] 78 U/L 45-117 [facility] ALT [Catalytic activity/Vol] 29 U/L 13-56 [facility] CO2 [Moles/Vol] 28.0 mmol/L 21.0-32.0 [facility] Globulin (S) [Mass/Vol] 6.3 g/dL 2.2-4.2 [facility] Urea nitrogen/Creatinine [Mass ratio] 18.7 mg/mg 10-20 [facility] - Hematology and Cell countsOrdered By: Dr. Sanchez on 06-23-2022 Erythrocyte distribution width (RBC) [Entitic vol] 47.9 fL 35.1-43.9 [facility] Erythrocyte distribution width (RBC) [Ratio] 15.8 % 11.6-14.6 [facility] Immature granulocytes/100 WBC (Bld) 0.200 % 0.0-0.9 [facility] Comment on above: IG% - Immature Granu locytes (promyelocytes, myelocytes and metamyelocytes) > 1% indicates that a LEFT SHIFT is Present. MCH (RBC) [Entitic mass] 25.4 pg 27.0-32.0 [facility] Nucleated RBC/100 WBC (Bld) [Ratio] 0 % 0-5 [facility] MCHC Auto (RBC) [Mass/Vol]Or dered By: Dr. Sanchez on 06-23-2022 MCHC (RBC) [Mass/Vol] 30.4 g/dL 32-36 [facility] No Panel InformationOrdered By: Dr. Sanchez on 06-23-2022 Estimated GFR (MDRD) Amer 110 mL/min >60 [facility] Comment on above: GFR Calc Estimated GFR (MDRD) Non-Af Amer 91 mL/min >60 [facility] Comment on above: Non- GFR Calc Platelets bldOrdered By: Dr. Sanchez on 06-23-2022 Platelets (Bld) [#/Vol] 270 10*3/uL 150-450 [facility] Serum or plasma albumin sara urement (mass/volume)Ordered By: Dr. Sanchez on 06-23-2022 Albumin [Mass/Vol] 2.9 g/dL 3.2-5.0 [facility] Serum or plasma albumin/glob ulin mass ratioOrdered By: Dr. Sanchez on 06-23-2022 Albumin/Globulin [Mass ratio] 0.5 {ratio} 0.9-2.4 [facility] Serum or plasma calcium sara urement (mass/volume)Ordered By: Dr. Sanchez on 06-23-2022 Calcium [Mass/Vol] 8.8 mg/dL 8.5-10.1 [facility] Serum or plasma creatinine m easurement (mass/volume)Ordered By: Dr. Sanchez on 06-23-2022 Creatinine [Mass/Vol] 0.75 mg/dL 0.55-1.02 [facility] Comment on above: The validity of the calculated GFR & GFRAA in patients over 70 years has not been determined. Clinical correlation is essential. Serum or plasma urea nitroge n measurement (mass/volume)Ordered By: Dr. Sanchez on 06-23-2022 Urea nitrogen [Mass/Vol] 14 mg/dL 7-18 [facility] Thin prep Papanicolaou smear with manual screeningOrdered By: Dr. Sanchez on 06-23-2022 Thin prep Papanicolaou smear with manual screening 13 U/L 15-37 [facility] Thin prep Papanicolaou smear with manual screening 5 5-15 [facility] Absolute lymphocyte countOrd ered By: Dr. Sanchez on 05-07-2022 Lymphocytes Auto (Unsp spec) [#/Vol] 0.71 10*3/uL 0.83-4.51 [facility] Basophil percentageOrdered B y: Dr. Sanchez on 05-07-2022 Basophils/100 WBC (Bld) 0.5 % 0-1 [facility] Bilirubin [Mass/Vol] 0.30 mg/dL 0.20-1.00 [facility] Comment on above: For patients on eltr ombopag therapy, use of Dim[place] TBIL is not recommended. Chloride [Moles/Vol] 105 mmol/L 98-107 [facility] Eosinophils/100 WBC (Bld) 4.6 % 0-5 [facility] Glucose [Mass/Vol] 86 mg/dL 74-106 [facility] Neutrophils (Bld) [#/Vol] 1.2 10*3/uL 2.0-7.7 [facility] Neutrophils/100 WBC (Bld) 56.1 % 47-70 [facility] Potassium [Moles/Vol] 3.8 mmol/L 3.5-5.1 [facility] Protein [Mass/Vol] 9.7 g/dL 6.4-8.2 [facility] Sodium [Moles/Vol] 138 mmol/L 136-145 [facility] WBC (Bld) [#/Vol] 2.2 10*3/uL 4.4-11.0 [facility] Bilirubin Test strip Ql (U)O rdered By: Dr. Sanchez on 05-07-2022 Bilirubin Ql (U) Negative Negative [facility] Blood erythrocytes count (nu mber/volume)Ordered By: Dr. Sanchez on 05-07-2022 RBC (Bld) [#/Vol] 4.07 10*6/uL 4.2-5.4 [facility] Blood hemoglobin measurement (mass/volume)Ordered By: Dr. Sanchez on 05-07-2022 Hemoglobin (Bld) [Mass/Vol] 10.4 g/dL 12.0-15. 0 [facility] Blood lymphocytes/100 leukoc ytesOrdered By: Dr. Sanchez on 05-07-2022 Lymphocytes/100 WBC (Bld) 32.4 % 19-41 [facility] Blood monocytes/100 leukocyt esOrdered By: Dr. Sanchez on 05-07-2022 Monocytes/100 WBC (Bld) 5.9 % 0-10 [facility] Blood platelet mean volumeOr dered By: Dr. Sanchez on 05-07-2022 Platelet mean volume (Bld) [Entitic vol] 9.5 fL 6.2-12.0 [facility] Determination of erythrocyte mean corpuscular volume (MCV)Ordered By: Dr. Sanchez on 05-07-2022 MCV (RBC) [Entitic vol] 82.6 fL 81-99 [facility] Dilute Denis's viper venom timeOrdered By: Dr. Sanchez on 05-07-2022 dRVVT Coag (PPP) [Time] 36.4 s 0.0-47.0 [facility] Erythrocyte sedimentation ra teOrdered By: Dr. Sanchez on 05-07-2022 ESR (Bld) [Velocity] 66 mm/h 0-30 [facility] Hematocrit Auto (Bld) [Volum e fraction]Ordered By: Dr. Sanchez on 05-07-2022 Hematocrit (Bld) [Volume fraction] 33.6 % 37-47 [facility] INR in Blood by Coagulation assayOrdered By: Dr. Sanchez on 05-07-2022 INR Coag (Bld) [Relative time] 1.1 {INR} [facility] Ketones Test strip Ql (U)Ord ered By: Dr. Sanchez on 05-07-2022 Ketones Ql (U) Negative Negative [facility] - Chemistry and C hemistry - challengeOrdered By: Dr. Sanchez on 05-07-2022 ALP [Catalytic activity/Vol] 179 U/L 45-117 [facility] ALT [Catalytic activity/Vol] 57 U/L 13-56 [facility] CK [Catalytic activity/Vol] 27 U/L 26-192 [facility] CO2 [Moles/Vol] 28.0 mmol/L 21.0-32.0 [facility] Globulin (S) [Mass/Vol] 7.1 g/dL 2.2-4.2 [facility] Urea nitrogen/Creatinine [Mass ratio] 16.4 mg/mg 10-20 [facility] - CoagulationOrde red By: Dr. Sanchez on 05-07-2022 aPTT Coag (Bld) [Time] 24.3 s 24.1-36.2 [facility] PT Coag (PPP) [Time] 14.0 s 11.7-14.9 [facility] - Hematology and Cell countsOrdered By: Dr. Sanchez on 05-07-2022 Erythrocyte distribution width (RBC) [Entitic vol] 41.1 fL 35.1-43.9 [facility] Erythrocyte distribution width (RBC) [Ratio] 13.8 % 11.6-14.6 [facility] Immature granulocytes/100 WBC (Bld) 0.500 % 0.0-0.9 [facility] Comment on above: IG% - Immature Granu locytes (promyelocytes, myelocytes and metamyelocytes) > 1% indicates that a LEFT SHIFT is Present. MCH (RBC) [Entitic mass] 25.6 pg 27.0-32.0 [facility] Nucleated RBC/100 WBC (Bld) [Ratio] 0 % 0-5 [facility] - Miscellaneous t estsOrdered By: Dr. Sanchez on 05-07-2022 Service comment (Unsp spec) [Interp] Comment . [facility] Comment on above: Results do not indic ate the presence of a LupusAnticoagulant: abnormal high screening results (PTT-LA,dRVVT, mixing studies), may be due to medication (heparin,warfarin, aspirin), Factor inhibitors, anticardiolipinantibodies, or poor specimen integrity.Performed at: [address] [id number] Director: Barrington Manzano MD, Phone: [phone] MCHC Auto (RBC) [Mass/Vol]Or dered By: Dr. Sanchez on 05-07-2022 MCHC (RBC) [Mass/Vol] 31.0 g/dL 32-36 [facility] Nitrite Test strip Ql (U)Ord ered By: Dr. Sanchez on 05-07-2022 Nitrite Ql (U) Negative Negative [facility] No Panel InformationOrdered By: Dr. Sanchez on 05-07-2022 Estimated GFR (MDRD) Amer 125 mL/min >60 [facility] Comment on above: GFR Calc Estimated GFR (MDRD) Non-Af Amer 103 mL/min >60 [facility] Comment on above: Non- GFR Calc Hepatitis B Surface Antigen Non-Reactive Nonrea ctive [facility] Hepatitis C Antibody Non-Reactive Nonreactive [facility] Comment on above: Non Reactive: < 0.8 Equivocal: >/= 0.8 to < 1.0 Reactive: >/= 1.0The CDC recommends that a reactive/equivocal HCV antibody result be followed up by the HCV Nucleic Acid Amplificationtest (277560) Miscellaneous Test Comment MAILED SPECIMEN [facility] Platelets bldOrdered By: Dr. Sanchez on 05-07-2022 Platelets (Bld) [#/Vol] 339 10*3/uL 150-450 [facility] Protein Test strip Ql (U)Ord ered By: Dr. Sanchez on 05-07-2022 Protein Ql (U) 15 mg/dl Negative [facility] Serum hepatitis B virus surf main antibody IgG detectionOrdered By: Dr. Sanchez on 05-07-2022 HBV surface IgG Ql (S) Non-Reactive [facility] Comment on above: Non Reactive: Incons istent with immunity less than <10 mIU/mL Reactive: Consistent with immunity greater than or equal to 10 mIU/mL Serum or plasma C reactive p rotein measurement (mass/volume)Ordered By: Dr. Sanchez on 05-07-2022 CRP [Mass/Vol] 48.70 mg/L 0.0-3.0 [facility] Comment on above: C-Reactive Protein ( CRP) provides useful information for thediagnosis, therapy and monitoring of inflammatory processesand associated diseases. For the evaluation of Relative Riskfor Cardiovascular Disease, a High Sensitivity CRP (HSCRP)should be ordered. Serum or plasma albumin sara urement (mass/volume)Ordered By: Dr. Sanchez on 05-07-2022 Albumin [Mass/Vol] 2.6 g/dL 3.2-5.0 [facility] Serum or plasma albumin/glob ulin mass ratioOrdered By: Dr. Sanchez on 05-07-2022 Albumin/Globulin [Mass ratio] 0.4 {ratio} 0.9-2.4 [facility] Serum or plasma calcium sara urement (mass/volume)Ordered By: Dr. Sanchez on 05-07-2022 Calcium [Mass/Vol] 8.7 mg/dL 8.5-10.1 [facility] Serum or plasma creatinine m easurement (mass/volume)Ordered By: Dr. Sanchez on 05-07-2022 Creatinine [Mass/Vol] 0.67 mg/dL 0.55-1.02 [facility] Comment on above: The validity of the calculated GFR & GFRAA in patients over 70 years has not been determined. Clinical correlation is essential. Serum or plasma urea nitroge n measurement (mass/volume)Ordered By: Dr. Sanchez on 05-07-2022 Urea nitrogen [Mass/Vol] 11 mg/dL 7-18 [facility] Thin prep Papanicolaou smear with manual screeningOrdered By: Dr. Sanchez on 05-07-2022 Thin prep Papanicolaou smear with manual screening 38 U/L 15-37 [facility] Thin prep Papanicolaou smear with manual screening 5 5-15 [facility] Thin prep Papanicolaou smear with manual screening 36.7 sec 0.0-47.6 [facility] Thin prep Papanicolaou smear with manual screening 1.01 Ratio 0.00-1.34 [facility] Thin prep Papanicolaou smear with manual screening 30.4 sec 0.0-51.9 [facility] Thin prep Papanicolaou smear with manual screening Comment: . [facility] Comment on above: No lupus anticoagula nt was detected.Performed at: [facility] [address] [id number] Director: Barrington Manzano MD, Phone: [phone] Thrombin time in platelet po or plasmaOrdered By: Dr. Sanchez on 05-07-2022 Thrombin time Coag (PPP) [Time] 16.4 sec 0.0-23.0 [facility] Urine blood detectionOrdered By: Dr. Sanchez on 05-07-2022 RBC Ql (U) Negative Negative [facility] Urine clarityOrdered By: Dr. Sanchez on 05-07-2022 Clarity (U) Sl. Cloudy Clear [facility] Urine color determinationOrd ered By: Dr. Sanchez on 05-07-2022 Color (U) Yellow Yellow [facility] Urine creatinine measurement (mass/volume)Ordered By: Dr. Sanchez on 05-07-2022 Creatinine (U) [Mass/Vol] 73.80 mg/dL NO RANGE EST. [facility] Urine glucose detectionOrder ed By: Dr. Sanchez on 05-07-2022 Glucose Ql (U) Normal mg/dl Normal [facility] Urine leukocyte esterase det ection by dipstickOrdered By: Dr. Sanchez on 05-07-2022 Leukocyte esterase Test strip Ql (U) 25 /ul Negative [facility] Urine pHOrdered By: Dr. Kenji blue on 05-07-2022 pH (U) 7.0 [pH] 5.0 - 8.0 [facility] Urine protein measurement (m ass/volume)Ordered By: Dr. Sanchez on 05-07-2022 Protein (U) [Mass/Vol] 15.4 mg/dL 0.0-11.8 [facility] Urine protein/creatinine mas s ratioOrdered By: Dr. Sanchez on 05-07-2022 Protein/Creatinine (U) [Mass ratio] 209 mg/g CRE 0-200 [facility] Urine specific gravity measu rementOrdered By: Dr. Sanchez on 05-07-2022 Specific gravity (U) [Rel density] 1.010 1.002-1.030 [facility] Urobilinogen Auto test strip Ql (U)Ordered By: Dr. Sanchez on 05-07-2022 Urobilinogen Ql (U) Normal mg/dl Normal [facility] Bilirubin Test strip Ql (U)O rdered By: Dr. Manning on 04-29-2022 Bilirubin Ql (U) Negative Negative [facility] Ketones Test strip Ql (U)Ord ered By: Dr. Manning on 04-29-2022 Ketones Ql (U) Negative Negative [facility] Nitrite Test strip Ql (U)Ord ered By: Dr. Manning on 04-29-2022 Nitrite Ql (U) Negative Negative [facility] No Panel InformationOrdered By: Dr. Manning on 04-29-2022 Urine Microalbumin/Creatinine Ratio 7.7 mg/g CRE <30 [facility] Protein Test strip Ql (U)Ord ered By: Dr. Manning on 04-29-2022 Protein Ql (U) Negative Negative [facility] Thin prep Papanicolaou smear with manual screeningOrdered By: Dr. Manning on 04-29-2022 Thin prep Papanicolaou smear with manual screening 6.4 mg/L NO RANGE EST. [facility] Urine blood detectionOrdered By: Dr. Manning on 04-29-2022 RBC Ql (U) Negative Negative [facility] Urine clarityOrdered By: Dr. Manning on 04-29-2022 Clarity (U) Clear Clear [facility] Urine color determinationOrd ered By: Dr. Manning on 04-29-2022 Color (U) Yellow Yellow [facility] Urine creatinine measurement (mass/volume)Ordered By: Dr. Manning on 04-29-2022 Creatinine (U) [Mass/Vol] 83.40 mg/dL NO RANGE EST. [facility] Urine glucose detectionOrder ed By: Dr. Manning on 04-29-2022 Glucose Ql (U) Normal mg/dl Normal [facility] Urine leukocyte esterase det ection by dipstickOrdered By: Dr. Manning on 04-29-2022 Leukocyte esterase Test strip Ql (U) 25 /ul Negative [facility] Urine pHOrdered By: Dr. Kingsley hernandez on 04-29-2022 pH (U) 7.0 [pH] 5.0 - 8.0 [facility] Urine specific gravity measu rementOrdered By: Dr. Manning on 04-29-2022 Specific gravity (U) [Rel density] 1.010 1.002-1.030 [facility] Urobilinogen Auto test strip Ql (U)Ordered By: Dr. Manning on 04-29-2022 Urobilinogen Ql (U) Normal mg/dl Normal [facility] Absolute lymphocyte countOrd ered By: Dr. Manning on 04-08-2022 Lymphocytes Auto (Unsp spec) [#/Vol] 0.70 10*3/uL 0.83-4.51 [facility] Basophil percentageOrdered B y: Dr. Manning on 04-08-2022 Basophils/100 WBC (Bld) 0.3 % 0-1 [facility] Bilirubin [Mass/Vol] 0.30 mg/dL 0.20-1.00 [facility] Comment on above: For patients on eltr ombopag therapy, use of Dim[place] TBIL is not recommended. Chloride [Moles/Vol] 101 mmol/L 98-107 [facility] Eosinophils/100 WBC (Bld) 2.2 % 0-5 [facility] Glucose [Mass/Vol] 88 mg/dL 74-106 [facility] Neutrophils (Bld) [#/Vol] 2.3 10*3/uL 2.0-7.7 [facility] Neutrophils/100 WBC (Bld) 70.6 % 47-70 [facility] Potassium [Moles/Vol] 3.4 mmol/L 3.5-5.1 [facility] Protein [Mass/Vol] 9.1 g/dL 6.4-8.2 [facility] Sodium [Moles/Vol] 136 mmol/L 136-145 [facility] WBC (Bld) [#/Vol] 3.2 10*3/uL 4.4-11.0 [facility] Blood erythrocytes count (nu mber/volume)Ordered By: Dr. Manning on 04-08-2022 RBC (Bld) [#/Vol] 4.22 10*6/uL 4.2-5.4 [facility] Blood hemoglobin measurement (mass/volume)Ordered By: Dr. Manning on 04-08-2022 Hemoglobin (Bld) [Mass/Vol] 11.3 g/dL 12.0-15. 0 [facility] Blood lymphocytes/100 leukoc ytesOrdered By: Dr. Manning on 04-08-2022 Lymphocytes/100 WBC (Bld) 21.9 % 19-41 [facility] Blood monocytes/100 leukocyt esOrdered By: Dr. Manning on 04-08-2022 Monocytes/100 WBC (Bld) 4.7 % 0-10 [facility] Blood platelet mean volumeOr dered By: Dr. Manning on 04-08-2022 Platelet mean volume (Bld) [Entitic vol] 8.8 fL 6.2-12.0 [facility] Determination of erythrocyte mean corpuscular volume (MCV)Ordered By: Dr. Manning on 04-08-2022 MCV (RBC) [Entitic vol] 82.7 fL 81-99 [facility] Hematocrit Auto (Bld) [Volum e fraction]Ordered By: Dr. Manning on 04-08-2022 Hematocrit (Bld) [Volume fraction] 34.9 % 37-47 [facility] - Chemistry and C hemistry - challengeOrdered By: Dr. Manning on 04-08-2022 ALP [Catalytic activity/Vol] 93 U/L 45-117 [facility] ALT [Catalytic activity/Vol] 46 U/L 13-56 [facility] CO2 [Moles/Vol] 28.0 mmol/L 21.0-32.0 [facility] Globulin (S) [Mass/Vol] 6.3 g/dL 2.2-4.2 [facility] Lipase [Catalytic activity/Vol] 121 U/L 73-393 [facility] Urea nitrogen/Creatinine [Mass ratio] 16.8 mg/mg 10-20 [facility] - Hematology and Cell countsOrdered By: Dr. Manning on 04-08-2022 Erythrocyte distribution width (RBC) [Entitic vol] 43.4 fL 35.1-43.9 [facility] Erythrocyte distribution width (RBC) [Ratio] 14.5 % 11.6-14.6 [facility] Immature granulocytes/100 WBC (Bld) 0.300 % 0.0-0.9 [facility] Comment on above: IG% - Immature Granu locytes (promyelocytes, myelocytes and metamyelocytes) > 1% indicates that a LEFT SHIFT is Present. MCH (RBC) [Entitic mass] 26.8 pg 27.0-32.0 [facility] Nucleated RBC/100 WBC (Bld) [Ratio] 0 % 0-5 [facility] MCHC Auto (RBC) [Mass/Vol]Or dered By: Dr. Manning on 04-08-2022 MCHC (RBC) [Mass/Vol] 32.4 g/dL 32-36 [facility] No Panel InformationOrdered By: Dr. Manning on 04-08-2022 Estimated GFR (MDRD) Amer 106 mL/min >60 [facility] Comment on above: GFR Calc Estimated GFR (MDRD) Non-Af Amer 88 mL/min >60 [facility] Comment on above: Non- GFR Calc Platelets bldOrdered By: Dr. Manning on 04-08-2022 Platelets (Bld) [#/Vol] 231 10*3/uL 150-450 [facility] Serum or plasma albumin sara urement (mass/volume)Ordered By: Dr. Manning on 04-08-2022 Albumin [Mass/Vol] 2.8 g/dL 3.2-5.0 [facility] Serum or plasma albumin/glob ulin mass ratioOrdered By: Dr. Manning on 04-08-2022 Albumin/Globulin [Mass ratio] 0.4 {ratio} 0.9-2.4 [facility] Serum or plasma calcium sara urement (mass/volume)Ordered By: Dr. Manning on 04-08-2022 Calcium [Mass/Vol] 8.1 mg/dL 8.5-10.1 [facility] Serum or plasma creatinine m easurement (mass/volume)Ordered By: Dr. Manning on 04-08-2022 Creatinine [Mass/Vol] 0.77 mg/dL 0.55-1.02 [facility] Comment on above: The validity of the calculated GFR & GFRAA in patients over 70 years has not been determined. Clinical correlation is essential. Serum or plasma urea nitroge n measurement (mass/volume)Ordered By: Dr. Manning on 04-08-2022 Urea nitrogen [Mass/Vol] 13 mg/dL 7-18 [facility] Thin prep Papanicolaou smear with manual screeningOrdered By: Dr. Manning on 04-08-2022 Thin prep Papanicolaou smear with manual screening 28 U/L 15-37 [facility] Thin prep Papanicolaou smear with manual screening 7 5-15 [facility] No Panel InformationOrdered By: Dr. Manning on 03-24-2022 Miscellaneous Test See comment [facility] Comment on above: TEST RESULT LIMITSAN CA Profile(RDL) ANCA by IFA(RDL) Negative Negative Anti-MPO Ab(RDL) <20 units <20 Anti-PR3 Ab(RDL) <20 units <20 __ [facility] ORIGINAL REPORT ON FILE IN LAB CONTAINS ADDITIONAL TEST SITE INFORMATION. Absolute lymphocyte countOrd ered By: Dr. Manning on 03-11-2022 Lymphocytes Auto (Unsp spec) [#/Vol] 0.66 10*3/uL 0.83-4.51 [facility] Atypical perinuclear antineu trophil cytoplasmic antibodies measurementOrdered By: Dr. Manning on 03-11-2022 Neutrophil cytoplasmic Ab.perinuclear.atypical IF (S) [Titer] <1:20 titer Neg:<1:20 [facility] Comment on above: The atypical pANCA p attern has been observed in asignificant percentage of patients with ulcerative colitis,primary sclerosing cholangitis and autoimmune hepatitis.Performed at: [address] [id number] Director: Ciro Rincon PhD, Phone: [phone] Basophil percentageOrdered B y: Dr. Manning on 03-11-2022 Basophil percentage > 8.0 AI 0.0-0.9 [facility] Basophils/100 WBC (Bld) 0.3 % 0-1 [facility] Bilirubin [Mass/Vol] 0.20 mg/dL 0.20-1.00 [facility] Comment on above: For patients on eltr ombopag therapy, use of Dimension [place] TBIL is not recommended. Chloride [Moles/Vol] 105 mmol/L 98-107 [facility] Eosinophils/100 WBC (Bld) 3.2 % 0-5 [facility] Glucose [Mass/Vol] 98 mg/dL 74-106 [facility] Neutrophils (Bld) [#/Vol] 2.5 10*3/uL 2.0-7.7 [facility] Neutrophils/100 WBC (Bld) 72.9 % 47-70 [facility] Potassium [Moles/Vol] 3.4 mmol/L 3.5-5.1 [facility] Protein [Mass/Vol] 9.6 g/dL 6.4-8.2 [facility] Sodium [Moles/Vol] 135 mmol/L 136-145 [facility] WBC (Bld) [#/Vol] 3.4 10*3/uL 4.4-11.0 [facility] Blood erythrocytes count (nu mber/volume)Ordered By: Dr. Manning on 03-11-2022 RBC (Bld) [#/Vol] 4.19 10*6/uL 4.2-5.4 [facility] Blood hemoglobin measurement (mass/volume)Ordered By: Dr. Manning on 03-11-2022 Hemoglobin (Bld) [Mass/Vol] 11.0 g/dL 12.0-15. 0 [facility] Blood lymphocytes/100 leukoc ytesOrdered By: Dr. Manning on 03-11-2022 Lymphocytes/100 WBC (Bld) 19.2 % 19-41 [facility] Blood monocytes/100 leukocyt esOrdered By: Dr. Manning on 03-11-2022 Monocytes/100 WBC (Bld) 4.1 % 0-10 [facility] Blood platelet mean volumeOr dered By: Dr. Manning on 03-11-2022 Platelet mean volume (Bld) [Entitic vol] 9.5 fL 6.2-12.0 [facility] Determination of erythrocyte mean corpuscular volume (MCV)Ordered By: Dr. Manning on 03-11-2022 MCV (RBC) [Entitic vol] 82.1 fL 81-99 [facility] Erythrocyte sedimentation ra teOrdered By: Dr. Manning on 03-11-2022 ESR (Bld) [Velocity] 98 mm/h 0-30 [facility] Hematocrit Auto (Bld) [Volum e fraction]Ordered By: Dr. Manning on 03-11-2022 Hematocrit (Bld) [Volume fraction] 34.4 % 37-47 [facility] Laboratory - Chemistry and C hemistry - challengeOrdered By: Dr. Manning on 03-11-2022 ALP [Catalytic activity/Vol] 102 U/L 45-117 [facility] ALT [Catalytic activity/Vol] 47 U/L 13-56 [facility] CO2 [Moles/Vol] 26.0 mmol/L 21.0-32.0 [facility] Globulin (S) [Mass/Vol] 6.9 g/dL 2.2-4.2 [facility] Urea nitrogen/Creatinine [Mass ratio] 15.3 mg/mg 10-20 [facility] Laboratory - Hematology and Cell countsOrdered By: Dr. Manning on 03-11-2022 Erythrocyte distribution width (RBC) [Entitic vol] 41.1 fL 35.1-43.9 [facility] Erythrocyte distribution width (RBC) [Ratio] 13.9 % 11.6-14.6 [facility] Immature granulocytes/100 WBC (Bld) 0.300 % 0.0-0.9 [facility] Comment on above: IG% - Immature Granu locytes (promyelocytes, myelocytes and metamyelocytes) > 1% indicates that a LEFT SHIFT is Present. MCH (RBC) [Entitic mass] 26.3 pg 27.0-32.0 [facility] Nucleated RBC/100 WBC (Bld) [Ratio] 0 % 0-5 [facility] MCHC Auto (RBC) [Mass/Vol]Or dered By: Dr. Manning on 03-11-2022 MCHC (RBC) [Mass/Vol] 32.0 g/dL 32-36 [facility] No Panel InformationOrdered By: Dr. Manning on 03-11-2022 Centromere B Antibody <0.2 AI 0.0-0.9 [facility] Estimated GFR (MDRD) Amer 95 mL/min >60 [facility] Comment on above: GFR Calc Estimated GFR (MDRD) Non-Af Amer 78 mL/min >60 [facility] Comment on above: Non- GFR Calc STEWARD/STEWARDESS WINE Antibody 1.4 AI 0.0-0.9 [facility] Platelets bldOrdered By: Dr. Manning on 03-11-2022 Platelets (Bld) [#/Vol] 273 10*3/uL 150-450 [facility] Serum DNA double strand anti body assay (units/volume)Ordered By: Dr. Manning on 03-11-2022 DNA double strand Ab Qn (S) 6 [IU]/mL 0-9 [facility] Comment on above: Negative <5 Equivoca l 5 - 9 Positive >9 Serum Adrienne-1 antibody assay (u nits/volume)Ordered By: Dr. Manning on 03-11-2022 Adrienne-1 extractable nuclear Ab Qn (S) <0.2 AI 0.0-0.9 [facility] Serum Scl-70 extractable nuc lear antibody assay (units/volume)Ordered By: Dr. Manning on 03-11-2022 SCL-70 extractable nuclear Ab Qn (S) <0.2 AI 0.0-0.9 [facility] Serum Skinner extractable nucl ear antibody detectionOrdered By: Dr. Manning on 03-11-2022 Skinner extractable nuclear Ab Ql (S) 0.6 AI 0.0-0.9 [facility] Serum classic neutrophil cyt oplasmic antibody assay (units/volume)Ordered By: Dr. Manning on 03-11-2022 Neutrophil cytoplasmic Ab.classic Qn (S) 1:40 titer Neg:<1:20 [facility] Serum cyclic citrullinated p eptide IgG antibody assay (units/volume)Ordered By: Dr. Manning on 03-11-2022 Cyclic citrullinated peptide IgG Qn 3 units 0-19 [facility] Comment on above: Negative <20 Weak po sitive 20 - 39 Moderate positive 40 - 59 Strong positive >59Performed at: - [facility] [address] [id number] Director: Barrington Manzano MD, Phone: [phone] Serum or plasma albumin sara urement (mass/volume)Ordered By: Dr. Manning on 03-11-2022 Albumin [Mass/Vol] 2.7 g/dL 3.2-5.0 [facility] Serum or plasma albumin/glob ulin mass ratioOrdered By: Dr. Manning on 03-11-2022 Albumin/Globulin [Mass ratio] 0.4 {ratio} 0.9-2.4 [facility] Serum or plasma calcium sara urement (mass/volume)Ordered By: Dr. Manning on 03-11-2022 Calcium [Mass/Vol] 8.5 mg/dL 8.5-10.1 [facility] Serum or plasma creatinine m easurement (mass/volume)Ordered By: Dr. Manning on 03-11-2022 Creatinine [Mass/Vol] 0.85 mg/dL 0.55-1.02 [facility] Comment on above: The validity of the calculated GFR & GFRAA in patients over 70 years has not been determined. Clinical correlation is essential. Serum or plasma urea nitroge n measurement (mass/volume)Ordered By: Dr. Manning on 03-11-2022 Urea nitrogen [Mass/Vol] 13 mg/dL 7-18 [facility] Serum perinuclear neutrophil cytoplasmic antibody titer by immunofluorescenceOrdered By: Dr. Manning on 03-11-2022 Neutrophil cytoplasmic Ab.perinuclear IF (S) [Titer] Comment titer Neg:<1:20 [facility] Comment on above: Results are Indeterm inate.The presence of positive fluorescence exhibiting P-ANCA orC-ANCA patterns alone is not specific for the diagnosis ofWegener's Granulomatosis (WG) or microscopic polyangiitis.Decisions about treatment should not be based solely onANCA IFA results. The International ANCA Group Consensusrecommends follow up testing of positive sera with both CT-3 and MPO-ANCA enzyme immunoassays. As many as 5% serumsamples are positive only by EIA. Ref. AM J Clin Edtttb4069;111:507-513. Serum rheumatoid factor dete ctionOrdered By: Dr. Manning on 03-11-2022 Rheumatoid factor Ql (S) 132.0 IU/mL <15 [facility] Thin prep Papanicolaou smear with manual screeningOrdered By: Dr. Manning on 03-11-2022 Thin prep Papanicolaou smear with manual screening 38 U/L 15-37 [facility] Thin prep Papanicolaou smear with manual screening 4 5-15 [facility] CWDPon 10-31-2018 CWDP . MICRO - Microbiology PROCEDURE: Culture Wound Deep Aerobe/Anaerobe w Gram Stain [*1] SOURCE: Wound (deep) BODY SITE: Placenta COLLECTED DATE/TIME: 10/23/2018 21:42 EDT RECEIVED DATE/TIME: 10/24/2018 11:02 EDT START DATE/TIME: 10/24/2018 11:02 EDT FREE TEXT SOURCE: FINAL REPORTS Final Report [] Verified Date/Time/Personnel: 10/31/2018 08:36 EDT No growth at 7 days. PRELIMINARY REPORTS Preliminary Report [] Verified Date/Time/Personnel: 10/25/2018 12:10 EDT No growth to date STAINS GS [] Verified Date/Time/Personnel: 10/24/2018 13:12 EDT No organisms seen. Performing Locations *1: This test was performed at: [address], [facility] , [facility] ([place]) Comment on above: Performed By: #### C [facility] #### [place] [address] Final Surgical Pathology Rep [facility] 10-27-2018 Final Surgical Pathology Report . Pathology Reports Accession: Collected Date/Time: Received Date/Time: Pathologist: [id number] 10/24/2018 08:28 EDT 10/25/2018 14:08 EDT VIKI SANCHES MD Final Surgical Pathology Report DIAGNOSIS: BILATERAL FALLOPIAN TUBES- CROSS SECTION IDENTIFIED. COMMENT: [facility] - D# [id number] CLINICAL INFORMATION: Procedure: TUBAL LIGATION Preoperative diagnosis: COMPLETED FAMILY STATUS Postoperative diagnosis: COMPLETED FAMILY STATUS SPECIMEN: A TUBES, STERILE - BILATERAL FALLPOIAN TUBES GROSS DESCRIPTION: Received in formalin labeled bilateral fallopian tubes are 2 segments of fallopian tube. One segment shows a stitch indicating it is the right-sided specimen and is subsequently inked for identification. The left tube is 8.5 cm and displays a fimbriated end and a pinpoint lumen. The right tube is 10 cm, with a fimbriated end and a pinpoint lumen. RS-1 Dictated by Cassy IRVIN ([facility] MICROSCOPIC DESCRIPTION: Slides reviewed. Electronically Signed by Pathology Report verified by [facility] Electronically signed by VIKI SANCHES Sign out Date: 10/27/2018 10:37 Performing Lab: [address] [address] [facility] Normal [facility] ([place]) Comment on above: Performed By: #### S PFR #### [place] [id number] HHon 10-24-2018 Hematocrit Volume Fraction (Bld) 27.5 % Low 37.0-47.0 [facility] ([place]) Comment on above: Performed By: #### H H #### [address] [address] Hemoglobin mass conc (Bld) 9.4 G/dL Low 12.0-16.0 [facility] ([place]) Comment on above: Performed By: #### H H #### [address] [address] .Auto Diffon 10-23-2018 Ammonia mass conc (P) 0.40 10 3/mcL Normal 0.15-1.00 [facility] ([place]) Comment on above: Performed By: #### C BC, ADIFF, ANEU, ABOG, ANSG #### [address] [address] Basophils #/vol (Bld) 0.00 10 3/mcL Normal 0.00-0.19 [facility] ([place]) Comment on above: Performed By: #### C BC, ADIFF, ANEU, ABOG, ANSG #### [address] [address] Basophils/100 WBC (Bld) 0.3 % Normal 0.0-2.5 A [facility] ([place]) Comment on above: Performed By: #### C BC, ADIFF, ANEU, ABOG, ANSG #### [address] [address] Eosinophils #/vol (Bld) 0.00 10 3/mcL Normal 0.00-0.40 [facility] ([place]) Comment on above: Performed By: #### C BC, ADIFF, ANEU, ABOG, ANSG #### [address] [address] Eosinophils/100 WBC (Bld) 0.6 % Normal 0.0-7.0 [facility] ([place]) Comment on above: Performed By: #### C BC, ADIFF, ANEU, ABOG, ANSG #### [address] [address] Lymphocytes #/vol (Bld) 1.10 10 3/mcL Normal 0.77-3.85 [facility] ([place]) Comment on above: Performed By: #### C BC, ADIFF, ANEU, ABOG, ANSG #### [address] [address] Lymphocytes/100 WBC (Bld) 22.9 % Normal 10.0-50.0 [facility] ([place]) Comment on above: Performed By: #### C BC, ADIFF, ANEU, ABOG, ANSG #### [address] [address] Monocytes/100 WBC (Bld) 7.5 % Normal 1.7-13.0 [facility] ([place]) Comment on above: Performed By: #### C BC, ADIFF, ANEU, ABOG, ANSG #### [address] [address] Neutrophils/100 WBC (Bld) 68.7 % Normal 37.0-80.0 [facility] ([place]) Comment on above: Performed By: #### C BC, ADIFF, ANEU, ABOG, ANSG #### [address] [address] .NEUABSon 10-23-2018 Neutrophils #/vol (Bld) 3.40 10 3/mcL Normal 2.85-6.16 [facility] ([place]) Comment on above: Performed By: #### C BC, ADIFF, ANEU, ABOG, ANSG #### [address] [address] CBCon 10-23-2018 Erythrocyte distribution width Ratio (RBC) 13.5 % Normal 11.5-14.5 [facility] ([place]) Comment on above: Performed By: #### C BC, ADIFF, ANEU, ABOG, ANSG #### [address] [address] Hematocrit Volume Fraction (Bld) 31.0 % Low 37.0-47.0 [facility] ([place]) Comment on above: Performed By: #### C BC, ADIFF, ANEU, ABOG, ANSG #### [place] [address] Hemoglobin mass conc (Bld) 10.5 G/dL Low 12.0-16.0 [facility] ([place]) Comment on above: Performed By: #### C BC, ADIFF, ANEU, ABOG, ANSG #### [place] [address] MCH Entitic mass (RBC) 29.0 pg Normal 27.0-31.2 [facility] ([place]) Comment on above: Performed By: #### C BC, ADIFF, ANEU, ABOG, ANSG #### [place] [address] MCHC mass conc (RBC) 33.9 G/dL Normal 33.0-37.0 [facility] ([place]) Comment on above: Performed By: #### C BC, ADIFF, ANEU, ABOG, ANSG #### [place] [address] MCV Entitic volume (RBC) 85.4 fL Normal 80.0-94.0 [facility] ([place]) Comment on above: Performed By: #### C BC, ADIFF, ANEU, ABOG, ANSG #### [address] [address] Platelet mean volume Entitic volume (Bld) 7.2 fL Low 7.4-10.4 [facility] ([place]) Comment on above: Performed By: #### C BC, ADIFF, ANEU, ABOG, ANSG #### [place] [id number] Platelets #/vol (Bld) 178 10 3/mcL Normal 130-400 A [facility] ([place]) Comment on above: Performed By: #### C BC, ADIFF, ANEU, ABOG, ANSG #### [address] [address] RBC #/vol (Bld) 3.63 10 6/mcL Low 4.20-5.40 [facility] ([place]) Comment on above: Performed By: #### C BC, ADIFF, ANEU, ABOG, ANSG #### [address] [address] WBC #/vol (Bld) 5.00 10 3/mcL Normal 4.60-10.80 [facility] ([place]) Comment on above: Performed By: #### C BC, ADIFF, ANEU, ABOG, ANSG #### [address] [address] Gel ABOon 10-23-2018 ABO/Rh Interp Positive [facility] ([place]) Comment on above: Performed By: #### C BC, ADIFF, ANEU, ABOG, ANSG #### [address] [address] Gel ABSon 10-23-2018 Antibody Screen Gel Negative Normal [facility] ([place]) Comment on above: Performed By: #### C BC, ADIFF, ANEU, ABOG, ANSG #### [address] [address] Vital Signs Date Time Vital Sign Value Performing Clinician Cindi vizcarra 07-18-2024 08:26-0400 Body height 160 cm Rosa Maria Sam [employer] Work Phone: [facility] [employer] 07-18-2024 08:26-0400 Body mass index (BMI) [Ratio] 23.03 kg/m2 Rosa [employer] [facility] 07-18-2024 08:26-0400 Body temperature 98.1 [degF] Rosa Maria Sam PA- C Work Phone: [facility] [employer] 07-18-2024 08:26-0400 Body weight 58.97 kg Rosa Maria Sam [employer] Work Phone: [facility] 07-18-2024 08:26-0400 Diastolic blood pressure 62 mm[Hg] Rosa Maria Wellsson PA-C Work Phone: [facility] 07-18-2024 08:26-0400 Heart rate 93 /min Rosa Maria Sam PA- C Work Phone: [facility] 07-18-2024 08:26-0400 Systolic blood pressure 92 mm[Hg] Rosa Maria Sam PA-C Work Phone: [facility] 07-16-2023 10:13-0500 Body height 165.1 cm James Hart MD Work Phone: [facility] 07-16-2023 10:13-0500 Body mass index (BMI) [Ratio] 22.85 kg/m2 James Hart MD Work Phone: [facility] 07-16-2023 10:13-0500 Body weight 62.28 kg James Hart MD Work Phone: [facility] 07-16-2023 10:13-0500 Diastolic blood pressure 62 mm[Hg] James Hart MD Work Phone: [facility] 07-16-2023 10:13-0500 Heart rate 69 /min James Hart MD Work Phone: [facility] 07-16-2023 10:13-0500 SaO2% (BldA) [Mass fraction] 93 % James Hart MD Work Phone: [facility] 07-16-2023 10:13-0500 Systolic blood pressure 100 mm[Hg] James Hart MD Work Phone: [facility] 05-18-2023 10:49-0500 Body height 165.1 cm Hu Ledesma MD Work Phone: [facility] 05-18-2023 10:49-0500 Body mass index (BMI) [Ratio] 22.8 kg/m2 Hu Ledesma MD Work Phone: [facility] 05-18-2023 10:49-0500 Body weight 62.14 kg Hu Ledesma MD Work Phone: [facility] 05-18-2023 10:49-0500 Diastolic blood pressure 60 mm[Hg] Hu Ledesma MD Work Phone: [facility] 05-18-2023 10:49-0500 Heart rate 88 /min Hu Ledesma MD Work Phone: [facility] 05-18-2023 10:49-0500 SaO2% (BldA) [Mass fraction] 100 % Hu Ledesma MD Work Phone: [facility] 05-18-2023 10:49-0500 Systolic blood pressure 91 mm[Hg] Hu Ledesma MD Work Phone: [facility] 04-29-2023 15:06-0500 Body temperature 98.6 [degF] Room [facility] 04-29-2023 15:06-0500 Diastolic blood pressure 72 mm[Hg] [facility] 04-29-2023 15:06-0500 Heart rate 106 /min [facility] 04-29-2023 15:06-0500 Respiratory rate 15 /min [facility] 04-29-2023 15:06-0500 SaO2% (BldA) [Mass fraction] 99 % [facility] 04-29-2023 15:06-0500 Systolic blood pressure 104 mm[Hg] [facility] 11-13-2022 09:41-0400 Body height 167.6 cm James Hart MD Work Phone: [facility] 11-13-2022 09:41-0400 Body mass index (BMI) [Ratio] 22.66 kg/m2 James Hart MD Work Phone: [facility] 11-13-2022 09:41-0400 Body weight 63.69 kg James Hart MD Work Phone: [facility] 11-13-2022 09:41-0400 Diastolic blood pressure 60 mm[Hg] James Hart MD Work Phone: [facility] 11-13-2022 09:41-0400 Heart rate 91 /min James Hart MD Work Phone: [facility] 11-13-2022 09:41-0400 SaO2% (BldA) [Mass fraction] 97 % James Hart MD Work Phone: [facility] 11-13-2022 09:41-0400 Systolic blood pressure 110 mm[Hg] James Hart MD Work Phone: [facility] 04-29-2022 16:25-0500 Body temperature 97.4 [degF] Dr. Wai Clemens Work Phone: [facility] 04-29-2022 16:25-0500 Body weight 62.[address] Wai Clemens Work Phone: [facility] 04-29-2022 16:25-0500 Diastolic blood pressure 64 mm[Hg] Dr. Wai Clemens Work Phone: [facility] 04-29-2022 16:25-0500 Heart rate 111 /min Dr. Wai Clemens Work Phone: [facility] 04-29-2022 16:25-0500 Respiratory rate 18 /min Dr. Wai Clemens Work Phone: [facility] 04-29-2022 16:25-0500 SaO2% (BldA) [Mass fraction] 98 % Dr. Wai Clemens Work Phone: [facility] 04-29-2022 16:25-0500 Systolic blood pressure 102 mm[Hg] Dr. Wai Clemens Work Phone: 9(244)511-745077 [place] [address] 04-08-2022 14:25-0500 Heart rate 100 /min Dr. Wai Clemens Work Phone: 3(700)747-781777 [place] [address] 04-08-2022 13:40-0500 Body temperature 98.9 [degF] Dr. Wai Clemens Work Phone: 4(745)242-664788 [place] [address] 04-08-2022 13:40-0500 Body weight 64.[address] Wai Clemens Work Phone: 7(891)252-912688 [place] [address] 04-08-2022 13:40-0500 Diastolic blood pressure 60 mm[Hg] Dr. Wai Clemens Work Phone: 4(856)[phone] [place] [address] 04-08-2022 13:40-0500 Respiratory rate 14 /min Dr. Wai Clemens Work Phone: 2(700)546-808388 [place] [address] 04-08-2022 13:40-0500 SaO2% (BldA) [Mass fraction] 99 % Dr. Wai Clemens Work Phone: 2(730)567-966577 [place] [address] 04-08-2022 13:40-0500 Systolic blood pressure 102 mm[Hg] Dr. Wai Clemens Work Phone: 5(416)249-631788 [place] [address] 03-11-2022 15:14-0400 Body height 162.[address] Wai Clemens Work Phone: 0(430)763-928288 [place] [address] 03-11-2022 15:14-0400 Body mass index (BMI) [Ratio] 25 kg/m2 Dr. Wai Clemens Work Phone: 2(049)917-784588 [place] [address] 03-11-2022 15:14-0400 Body temperature 98.9 [degF] Dr. Wai Clemens Work Phone: 8(856)809-873588 [place] [address] 03-11-2022 15:14-0400 Body weight 66.[address] Wai Clemens Work Phone: 5(845)888-887277 [place] [address] 03-11-2022 15:14-0400 Diastolic blood pressure 64 mm[Hg] Dr. Wai Clemens Work Phone: [facility] 03-11-2022 15:14-0400 Heart rate 101 /min Dr. Wai Clemens Work Phone: [facility] 03-11-2022 15:14-0400 Respiratory rate 14 /min Dr. Wai Clemens Work Phone: [facility] 03-11-2022 15:14-0400 SaO2% (BldA) [Mass fraction] 98 % Dr. Wai Clemens Work Phone: [facility] 03-11-2022 15:14-0400 Systolic blood pressure 102 mm[Hg] Dr. Wai Clemens Work Phone: [facility] Encounters Encounter Date Encounter Type Care Provider Facility Start: 10-10-2024 Encounter for preprocedural laboratory examination [facility] Start: 09-01-2024 ambulatory Charito Monet NP Fa cility:[facility] Start: 08-18-2024 ambulatory Charito Monet NP Fa cility:[facility] Start: 08-16-2024 Encounter for preprocedural laboratory examination [facility] Start: 08-11-2024 End: 08-11-2024 ambulatory Charito Monet NP-C [facility] Work Phone: Start: 08-11-2024 End: 08-11-2024 Patient encounter procedure Charito Monet NP-C -Laboratory Work Phone: Start: 08-11-2024 End: 08-11-2024 ambulatory [facility] Facility:[facility] Start: 07-25-2024 Registered Referred Charito [facility] -Laboratory, Specimen Work Phone: Start: 07-25-2024 ambulatory Charito Monet NP Fa cility:[facility] Start: 07-18-2024 End: 07-18-2024 Subsequent hospital visit by physician Shital Fl Exam Room 2 [facility] X-Ray Comment on above: Dysphagia, unspecifi ed type; Indigestion; History of repair of hiatal hernia Start: 07-18-2024 End: 07-18-2024 ambulatory CHARITO MONET [facility] Start: 07-18-2024 End: 07-18-2024 Office outpatient new 45 minutes Rosa Maria Miller PA-C Work Phone: [facility] [place] Comment on above: Chest pain, unspecif ied type (Primary Dx); SOB (shortness of breath); PFO (patent foramen ovale); History of CVA (cerebrovascular accident) Start: 07-18-2024 End: 07-18-2024 ambulatory ROSA MARIA SAM [facility] Start: 06-13-2024 End: 06-13-2024 Telephone encounter Antoine Garcia MD Work Phone: [facility] [place] Comment on above: Other Start: 05-02-2024 End: 05-02-2024 ambulatory CHARITO MONET [facility] Start: 04-18-2024 Registered Referred Charito [facility] -Laboratory, Specimen Work Phone: Start: 04-18-2024 ambulatory Charito Monet NP Fa cility:[facility] Start: 01-25-2024 ambulatory Charito Monet NP Fa cility:[facility] Start: 12-31-2023 ambulatory Charito Monet NP Fa cility:[facility] Start: 12-07-2023 ambulatory 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 Fa cility:[facility] Start: 10-16-2023 ambulatory Charito Monet NP Fa cility:[facility] Start: 07-16-2023 ambulatory CHARITO MONET Facilit y:[facility] Start: 07-16-2023 End: 07-16-2023 Office outpatient visit 25 minutes James Hart MD Work Phone: [facility] Comment on above: PFO (patent foramen ovale) (Primary Dx); Cerebrovascular accident (CVA), unspecified mechanism Start: 06-10-2023 ambulatory TOREY NELSON [facility] Start: 05-18-2023 End: 05-18-2023 ambulatory ROC LONGBren ANDERS [facility] at[facility] Start: 05-18-2023 End: 05-18-2023 Office outpatient new 45 minutes Roc Mcnamara MD Work Phone: [facility] Comment on above: PFO (patent foramen ovale); Chest pain, unspecified type Start: 04-29-2023 End: 04-29-2023 ambulatory ROC MCNAMARA [facility] Start: 04-29-2023 End: 04-29-2023 Nursing evaluation of patient and report Roc Mcnamara MD Work Phone: [facility] [employer] Comment on above: S/P PICC central desiree e placement (Primary Dx); Needs peripherally inserted central catheter (PICC) Start: 04-24-2023 Transcribe Orders Roc Mcnamara MD Work Phone: [facility] Comment on above: PFO (patent foramen ovale) (Primary Dx); Chest pain, unspecified type Start: 11-13-2022 ambulatory CHARITO MONET Facilit y:[facility] Start: 11-13-2022 End: 11-13-2022 Office consultation new/estab patient 80 min James Hart MD Work Phone: [facility] [place] Comment on above: PFO (patent foramen ovale) (Primary Dx); Cerebrovascular accident (CVA), unspecified mechanism Start: 09-15-2022 ambulatory CHARITO MONET Facilit y:[facility] Start: 06-23-2022 End: 06-23-[address] Wai Clemens Work Phone: [facility] Work Phone: Start: 06-23-2022 End: 06-23-[address] Wai Clemens Work Phone: [facility] Start: 05-20-2022 Non-patient / Non-visit Dr. Adrienne Clemens Work Phone: [facility] Start: 05-20-2022 End: 05-20-[address] Wai Clemens Work Phone: [facility] Work Phone: Start: 05-20-2022 End: 05-20-[address] Wai Clemens Work Phone: [facility]-Cardiovascula r Services Start: 05-07-2022 End: 05-07-[address] Wai Clemens Work Phone: [facility] Work Phone: Start: 05-07-2022 End: 05-07-[address] Wai Clemens Work Phone: [facility] Start: 04-30-2022 End: 04-30-[address] Wai Clemens Work Phone: [facility] Work Phone: Start: 04-30-2022 End: 04-30-[address] Wai Clemens Work Phone: [facility]-Laboratory, [facility] Start: 04-29-2022 End: 04-29-[address] Wai Clemens Work Phone: [facility] Start: 04-12-2022 End: 04-12-[address] Wai Clemens Work Phone: [facility] Work Phone: Start: 04-12-2022 End: 04-12-[address] Wai Clemens Work Phone: [facility] Start: 04-08-2022 End: 04-08-[address] Wai Clemens Work Phone: [facility] Work Phone: Start: 04-08-2022 End: 04-08-[address] Wai Clemens Work Phone: [facility] Start: 03-24-2022 End: 03-24-[address] Wai Clemens Work Phone: [facility] Work Phone: Start: 03-24-2022 End: 03-24-[address] Wai Clemens Work Phone: [facility]-Cat Scan, [facility] Start: 03-11-2022 End: 03-11-[address] Wai Clemens Work Phone: [facility] Procedures Date Procedure Procedure Detail Performing Clinician Start: 08-11-2024 X-ray of chest, PA a nd lateral views Charito Monet 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-C Start: 07-18-2024 Radiologic exam upr gi trc double contrast study Rosa Maria Miller PA-C Work Phone: Start: 04-12-2022 US scan of gallbladder Dr. Wai Clemens Work Phone: Start: 03-24-2022 CT of thorax with contrast Dr. Wai Clemens Work Phone: Plan of Treatment Date Care Activity Detail Author Start: 2056 RSV Immunization for Adults (1 - 1-dose 75+ series) RSV Immunization for Adults (1 - 1-dose 75+ series) [facility] Start: 2031 Zoster Vaccines (1 of 2) Zoste r Vaccines (1 of 2) [facility] Start: 07-18-2024 End: 07-18-2024 Patient encounter procedure 07/18/2024 10:30 AM EDT Office Visit [facility] [address] [place] [phone] [facility] Start: 07-18-2024 End: 07-18-2024 Patient encounter procedure [facility] [place] Start: 06-23-2024 End: 06-23-2025 RF Upper gastrointestinal tract and Small bowel Single view W contrast PO FL upper GI double contrast w KUB Imaging Routine Dysphagia, unspecified type Indigestion History of repair of hiatal hernia Expected: 06/23/2024, Expires: 06/23/2025 [facility] Work Phone: Comment on above: Expected: 06/23/2024 , Expires: 06/23/2025 Start: 01-10-2024 COVID-19 Vaccine () COVID-19 Vaccine () [facility] Start: 01-10-2024 Influenza vaccination Influenz a Vaccine (#1) [facility] Start: 07-16-2023 End: 07-16-2023 Patient encounter procedure 07/16/2023 10:00 AM EST Office Visit [facility] [address] [place] [phone] James Hart MD [address] [place] [phone] [facility] Start: 05-18-2023 End: 05-18-2023 Patient encounter procedure 05/18/2023 11:00 AM EST Office Visit [facility] [address] [place] [phone] [place] [id number] Roc Mcnamara MD [address] [place] [id number] Hu Ledesma MD [address] [place] [phone] [facility] Start: 01-09-2023 COVID-19 VACCINE ( season) COVID-19 VACCINE ( season) [facility] Start: 01-09-2023 Influenza vaccination [facility] Start: 12-28-2022 Lupus anticoagulant assay [facility] Work Phone: Start: 2021 Lipid panel LIPID SCREENING [facility] Start: 2021 Screening for malign ant neoplasm of breast [facility] Start: 2011 Screening for malign ant neoplasm of cervix [facility] Start: 2002 Screening for malign ant neoplasm of cervix [facility] Start: 2000 DTaP/Tdap/Td Vaccine s (1 - Tdap) DTaP/Tdap/Td Vaccines (1 - Tdap) [facility] Start: 2000 Hepatitis B vaccination HEP B VACCINE (1 of 3 - 19+ 3-dose series) [facility] Start: 2000 Hepatitis B Vaccines (1 of 3 - 19+ 3-dose series) Hepatitis B Vaccines (1 of 3 - 19+ 3-dose series) [facility] Start: 2000 Pneumococcal Vaccine : Pediatrics (0 to 5 Years) and At-Risk Patients (6 to 49 Years) (1 of 2 - PCV) Pneumococcal Vaccine: Pediatrics (0 to 5 Years) and At-Risk Patients (6 to 49 Years) (1 of 2 - PCV) [facility] Start: 2000 Third diphtheria, te tanus and acellular pertussis (DTaP) vaccination TDAP (ADULT) [facility] Start: 1999 Diabetes mellitus screening Diabetes Screening [facility] Start: 1999 Hepatitis C screening Hepatitis C Sc lyudmilaning [facility] Start: 1996 HIV screening [facility] Start: 1994 Varicella vaccination Varicell a Vaccines (1 of 2 - 13+ 2-dose series) [facility] Start: 1993 Depression screening using PHQ-9 (Patient Health Questionnaire 9) score [facility] Start: 1984 History and physical examination, annual for health maintenance Wellness Visit [facility] Start: 1982 MMR Vaccines (1 of 1 - Standard series) MMR Vaccines (1 of 1 - Standard series) [facility] Start: 1981 COVID-19 VACCINE (#1) COVID-19 VACCI NE (#1) [facility] Start: 1981 Hepatitis C screening HEPATITI S C VIRUS SCREENING [facility] Start: 1981 HIV screening HIV Screening [facility] Start: 1981 Tetanus vaccination [facility] aPTT W excess hexago nal phospholipid (StaClot LA confirm) [facility] Work Phone: Lupus anticoagulant neutralization platelet [Time] in Platelet poor plasma by Coagulation assay [facility] Work Phone: Partial thromboplast in time ratio [facility] Work Phone: Procedure [facility] Work Phone: Thrombin time [facility] Work Phone: [facility] Payers Date Payer Category Payer Unknown [id number] 2024 Unknown [id number] 2023 Self-pay [id number] 1980 Unknown [id number] Commercial Managed C [facility] [id number] Unknown [employer] . [id number] Unknown [facility] PACKAGE PLAN [id number] Unknown [id number] Unknown [id number] Unknown [id number] Unknown [id number] Unknown [id number] Unknown [id number] Unknown [id number] Unknown [id number] Unknown [id number] Social History Date Type Detail Facility Start: 03-11-2022 End: 04-29-2022 Tobacco smoking status NHIS Unknown if ever smoked [facility] Start: 1980 Sex Assigned At Female W [facility] Start: 09-09-2022 End: 11-13-2022 Tobacco smoking status NHIS Never smoked tobacco [facility] Start: 11-13-2022 End: 07-18-2024 Tobacco use and exposure Smokeless tobacco non-user [facility] Start: 11-13-2022 End: 07-18-2024 Alcohol intake Lifetime non-drinker (finding) [facility] Start: 11-13-2022 End: 07-18-2024 History of Social function [facility] Start: 11-13-2022 End: 07-18-2024 Tobacco use panel [facility] Start: 1980 Sex Assigned At Not on file [facility] Start: 06-13-2024 End: 08-16-2024 Sex Female (finding) [facility] Clinical Notes 11-13-2022 to 08-12-2024 Rosa Maria Miller PA-C - 07/18/2024 8:30 AM EDTTelephone Encounter - Lizzie Dunn - 06/24/2024 12:08 PM ESTTelephone Encounter - Lizzie Dunn - 06/24/2024 12:08 PM ESTPatient Instructions Note Date & Type Note Facility 08-12-2024 Radiology Diagnostic study note [facility] Imaging Services [address] [place] [address] Chest PA and Lateral MR#: [id number] Acct: [id number] Name: MARY COOK Rep #: [id number] : 1980 F 44 From: Sana Lee MD PCP: Charito Monet, CELE Status: RE G CLI Study:Chest PA and Lateral Date of Exam: 08/11/24 Exam# [id number] Ordering Dr: MONIKA WILDER EXAM: XR Chest, 2 Views CLINICAL INDICATION: PFO TECHNIQUE: Frontal and lateral views of the chest. COMPARISON: No relevant prior studies available. FINDINGS: LUNGS AND PLEURAL SPACES: Subtle patchy airspace disease of the lingula and right middle lobe could be developing pneumonia. This could be further evaluated with CT. No pneumothorax. HEART: Unremarkable. No cardiomegaly. MEDIASTINUM: Unremarkable. Normal mediastinal contour. BONES/JOINTS: Unremarkable. No acute fracture. RAD/Chest PA and Lateral IMPRESSION: Subtle patchy airspace disease of the lingula and right middle lobe could be developing pneumonia. This could be further evaluated with CT. Reading [facility] CC: 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-C Charito Monet; MONIKA SCHNEIDER ~ Supplier Manager: Signed [facility] 07-18-2024 History of Present illness Narrative Images from the original note were not included. [facility] Advanced Laparoscopic Surgery Patient Name: Mary Cook Date: 07/18/24 Referring Physician: Charito Monet APRN * HPI: Mary Cook is a 44 y.o. female who presents with symptoms of chest pain, shortness of breath, and discomfort when lying on her left side, concerning for hiatal hernia. Her assists with giving HPI. States that about 4-5 years ago, she developed central chest pain and shortness of breath. They were concerned that her symptoms were related to her hiatal hernia so tried to seek evaluation with GI however was not unable to do so. Denies heartburn, reflux. Reports occasional reflux. They ended up going to [place] for evaluation and states that they were evaluated by endoscopy and told that she had a hiatal hernia that was a 5 out of 10 and was scheduled to proceed with hiatal hernia repair. However the day before her scheduled surgery, she suffered from a CVA and was hospitalized in [place] for 11 days. Found to have a PFO and decided to come home for further evaluation and did not proceed with hiatal hernia repair. Since that time they have been evaluated by 5 cardiologists and are currently following with Dr. Skinner at [facility] with plans to proceed with PFO repair. However, they present today to evaluate the possibility of hernia contributing to her symptoms prior to any needed heart surgery. 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 Reports that she did follow-up with a roller billet mill at some point was told she had pulmonary nodules but was also told that her lung should not be affecting her lifestyle. They no longer follow with pulmonology. Additionally, she has been diagnosed with several autoimmune diseases, including lupus, Lyme's, RA, Sjogren's. Currently being treated with IV infusions at home, which her PCP is managing. PMH significant for , tubal ligation. Denies substance abuse. Notes reviewed: Alfredito Monet APRN, 06/21/24 Data reviewed: None relevant I personally reviewed the patient intake form with the patient. The ROS is negative except for what is listed in HPI. PMHx: Past Medical History: Diagnosis Date Lupus (systemic lupus erythematosus) ([facility]) ([facility]) 2023 picc line to treat lupus PFO (patent foramen ovale) Dr. Skinner, cardio, [facility] Stroke ([facility]) 2022 has a hole in her heart / PFO PSHx: Past Surgical History: Procedure Laterality Date SECTION, CLASSIC 2006 TUBAL LIGATION 2018 PFMHx: Family History Problem Relation Name Age of Onset Heart block Father ALL: No Known Allergies MEDS: Current Outpatient Medications Medication Sig Dispense Refill hydroxychloroquine (Plaquenil) 200 MG tablet Take 1 tablet by mouth 2 times daily. apixaban (Eliquis) 5 MG tablet Take 5 mg by mouth 2 times daily. cefTRIAXone 1 g/10 mL in sterile water (PF) injection Infuse 1 g into a venous catheter every 24 hours. Chlorhexidine Gluconate (HIBICLENS EX) BIOME ADX SUPERIOR GRADE NUTRACEUTICAL BID fluconazole (Diflucan) 100 MG tablet Take 100 mg by mouth daily. metroNIDAZOLE (Flagyl) 500 MG tablet Take 500 mg by mouth. S-Adenosylmethionine (SANDRA-e) 200 MG capsule Take by mouth. spironolactone (Aldactone) 25 MG tablet Take by mouth daily. spironolactone (Aldactone) 25 MG tablet Take 25 mg by mouth. Tetrahydrobiopterin DiHCl powder No current facility-administered medications for this visit. SOCIAL Hx: Social History Socioeconomic History Marital status: Spouse name: Not on file Number of children: Not on file Years of education: Not on file Highest education level: Not on file Occupational History Not on file Tobacco Use Smoking status: Never Smokeless tobacco: Never Substance and Sexual Activity Alcohol use: Never Drug use: Never Sexual activity: Yes Other Topics Concern Not on file Social History Narrative Not on file Social Drivers of Health Financial Resource Strain: Not on file Food Insecurity: Not on file Transportation Needs: Not on file Physical Activity: Not on file Stress: Not on file Social Connections: Not on file Intimate Partner Violence: Not on file Housing Stability: Not on file ROS: General: negative for - chills, fatigue, fever or malaise Gastrointestinal: negative for - change in bowel habits, hemoptysis, hematemesis, hematochezia, dysphagia, nausea, vomiting, diarrhea, constipation, weight loss DIAGNOSTIC EVALUATION: as described above Physical Examination: BP 92/62 (BP Location: Left arm, Patient Position: Sitting, BP Cuff Size: Adult) Pulse 93 Temp 36.7 C (98.1 F) (Temporal) Ht 5' 3 (1.6 m) Wt 130 lb (59 kg) BMI 23.03 kg/m She stands Height: 5' 3 (160 cm) tall with a weight of Weight: 130 lb (59 kg), resulting in a BMI of Body mass index is 23.03 kg/m . General: The patient is awake, alert, and oriented, and is in no apparent distress; normal affect Respiratory: Normal effort, no gross abnormal breath sounds Abdomen: Appropriate girth, non-distended, soft, no masses or hepatosplenomegaly Hernia: No obvious hernias on exam Extremities: Ambulatory without assistance, no obvious deformities Skin: Warm, dry, intact; no obvious lesions or discoloration Assessment/Plan Mary was seen today for new patient. Diagnoses and all orders for this visit: Chest pain, unspecified type (Primary) SOB (shortness of breath) PFO (patent foramen ovale) History of CVA (cerebrovascular accident) Mary Cook is a 44 y.o. female who presents with chest pain, SOB, concern for HH and known PFO of heart. We will proceed with the following diagnostic evaluation: UGI w/ MBP. Discussed that her symptoms are not typical of hiatal hernia, but discussed additional testing if needed, such as EGD +/- Fuller, manometry. Follow up after completion of workup with Dr. Garcia. If the patient is undergoing Fuller study, stop all PPIs 7 days prior to Ufller study. Stop all H2 blockers 2 days prior to Fuller study. Antacids such as Gaviscon, Maalox, Nadeen-Lamberton, Mylanta, or Tums can be taken up until midnight the day before Fuller study. If the patient is undergoing manometry they must refrain from opioids for 48 hours prior to procedure. The above tests have been described and explained to the patient and the patient is in agreement to undergo the above testing. All questions were addressed with the patient to the patients satisfaction. I met with the patient today to discuss risks and benefits of laparoscopic HH repair/anti-reflux surgery including, but not limited to injury to surrounding structures, the possibility of using mesh for diaphragmatic reinforcement, conversion to open, pleural effusion requiring thoracentesis and/or chest tube placement, prolonged mechanical ventilation, and . The patient is aware of the possibility of gas bloat syndrome, the need for ongoing PPI/H2 Nya use, postoperative reflux or dysphagia requiring dilation. We discussed potential for hemorrhage, infection, incomplete resolution of reflux symptoms, as well as cardiac and pulmonary-related complications. The possibility of removal of magnetic sphincter augmentation device was also explained if applicable. I met with her today to discuss the risks and benefits of laparoscopic HH repair/anti-reflux surgery as outlined above. Visual aids were used to describe the procedure. All questions were answered to patient's satisfaction. I personally performed the evaluation and management of Mary Cook in the development of a treatment plan for this patient. I personally interviewed the patient and performed an individual physical examination. In addition, I discussed the patient's condition and treatment options with them. I have also reviewed and agree with the past medical, family and social history unless otherwise noted. All of the patient's questions were answered. I discussed/counseled the patient regarding the risks and benefits of surgery as well as the preoperative and postoperative care plan for this patient.The patient was seen and examined independently and relevant data reviewed by myself. A full chart review was performed. Patient Care Team: Charito Monet APRN - JUDD as PCP - General (Gynecologic Oncology) documented in this encounter [facility] 06-24-2024 Telephone encounter Note Name of caller: coleman Contact phone number: [phone] Relationship to Patient: [facility] Provider: [place] Practice: [facility] Chief Complaint/Reason for Call: Coleman states someone in office called wanting to know why pt was being seen with [place]. Caller states the reason pt is referred is because pt's family was concerned about pt's hiatal pt had done outside country. Please advise. Best time of day caller can be reached: AM Patient advised that office/PCP has 24-48 business hours to return their call: N/A [facility] 06-24-2024 Miscellaneous Notes Name of caller: coleman Contact phone number: [phone] Relationship to Patient: [facility] Provider: [place] Practice: [facility] Chief Complaint/Reason for Call: Coleman states someone in office called wanting to know why pt was being seen with [place]. Caller states the reason pt is referred is because pt's family was concerned about pt's hiatal pt had done outside country. Please advise. Best time of day caller can be reached: AM Patient advised that office/PCP has 24-48 business hours to return their call: N/A Lvm informing pt of her upcoming appt and testing, Gave time date location and prep. Addended by: ROSA MARIA MILLER on: 06/23/2024 01:37 PM Modules accepted: Orders Order placed. Spoke to referring office and pt said that she thinks she has a hh and wants to seen to confirm. Can I get a order for UGI? . He said that she has trouble swallowing and bad indigestion Lvm informing pt's that I need her OV from her PCP as she is new to [facility] so we can view past medical history. Also informing him that pt would be seen in [place] so we could schedule her test, appt and financial counseling on the same day Pt's called and said they would prefer to go to [place] so whatever you need to do just go head and do it and call him with appointment tomorrow. Lvm asking for a call back to schedule Message released to patient as written. Patient's further questions if applicable: Marlon is inquiring if we have the records that we need and would like to discuss which location would be best for Mary to go to. They definitely would like to see Dr. Garcia. Please call Marlon at [phone]. Were all questions from office addressed or relayed to the patient from encounter: Yes LVM for patient to ask if she would prefer [place] or [place]. If she chooses [place], she will need appt, UGI and poss Financial Counseling , if [place] will only need appt with Dr Garcia. Will have to get records also prior to appt. Will try to call patient back tomorrow. DP Pt called and wants to make an appointment to be seen for a HH and Gerd symptoms. 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 She has symptoms of indigestion with heavy foods and cannot lay flat. Also, c/o trouble swallowing especially meat. She is not only any meds for this. documented in this encounter [facility] [employer] 06-23-2024 Telephone encounter Note Lvm informing pt of her upcoming appt and testing, Gave time date location and prep. [place] [employer] [facility] 06-23-2024 Miscellaneous Notes Lvm informing pt of her upcoming appt and testing, Gave time date location and prep. Addended by: ROSA MARIA MILLER on: 06/23/2024 01:37 PM Modules accepted: Orders Order placed. Spoke to referring office and pt said that she thinks she has a hh and wants to seen to confirm. Can I get a order for UGI? . He said that she has trouble swallowing and bad indigestion Lvm informing pt's that I need her OV from her PCP as she is new to [facility] so we can view past medical history. Also informing him that pt would be seen in [place] so we could schedule her test, appt and financial counseling on the same day Pt's called and said they would prefer to go to [place] so whatever you need to do just go head and do it and call him with appointment tomorrow. Lvm asking for a call back to schedule Message released to patient as written. Patient's further questions if applicable: Marlon is inquiring if we have the records that we need and would like to discuss which location would be best for Mary to go to. They definitely would like to see Dr. Garcia. Please call Marlon at [phone]. Were all questions from office addressed or relayed to the patient from encounter: Yes LVM for patient to ask if she would prefer [place] or [place]. If she chooses [place], she will need appt, UGI and poss Financial Counseling , if [place] will only need appt with Dr Garcia. Will have to get records also prior to appt. Will try to call patient back tomorrow. DP Pt called and wants to make an appointment to be seen for a HH and Gerd symptoms. 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 She has symptoms of indigestion with heavy foods and cannot lay flat. Also, c/o trouble swallowing especially meat. She is not only any meds for this. documented in this encounter [facility] 06-23-2024 Note Addended by: ROSA MARIA MILLER on: 06/23/2024 01:37 PM Modules accepted: Orders [facility] 06-23-2024 Note Addended by: ROSA MARIA MILLER on: 06/23/2024 01:37 PM Modules accepted: Orders [facility] 06-23-2024 Note Addended by: ROSA MARIA MILLER on: 06/23/2024 01:37 PM Modules accepted: Orders [facility] 06-23-2024 Note Addended by: ROSA MARIA MILLER on: 06/23/2024 01:37 PM Modules accepted: Orders [facility] 06-23-2024 Telephone encounter Note Order placed. [facility] 06-23-2024 Telephone encounter Note Spoke to referring office and pt said that she thinks she has a hh and wants to seen to confirm. Can I get a order for UGI? . He said that she has trouble swallowing and bad indigestion [facility] 06-16-2024 Telephone encounter Note Lvm informing pt's that I need her OV from her PCP as she is new to [facility] so we can view past medical history. Also informing him that pt would be seen in [place] so we could schedule her test, appt and financial counseling on the same day [facility] 06-16-2024 Miscellaneous Notes Lvm informing pt's that I need her OV from her PCP as she is new to [facility] so we can view past medical history. Also informing him that pt would be seen in [place] so we could schedule her test, appt and financial counseling on the same day Pt's called and said they would prefer to go to [place] so whatever you need to do just go head and do it and call him with appointment tomorrow. Lvm asking for a call back to schedule Message released to patient as written. Patient's further questions if applicable: Marlon is inquiring if we have the records that we need and would like to discuss which location would be best for Mary to go to. They definitely would like to see Dr. Garcia. Please call Marlon at [phone]. Were all questions from office addressed or relayed to the patient from encounter: Yes LVM for patient to ask if she would prefer [place] or [place]. If she chooses [place], she will need appt, UGI and poss Financial Counseling , if [place] will only need appt with Dr Garcia. Will have to get records also prior to appt. Will try to call patient back tomorrow. DP Pt called and wants to make an appointment to be seen for a HH and Gerd symptoms. 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 She has symptoms of indigestion with heavy foods and cannot lay flat. Also, c/o trouble swallowing especially meat. She is not only any meds for this. documented in this encounter [facility] 06-16-2024 Telephone encounter Note Pt's called and said they would prefer to go to [place] so whatever you need to do just go head and do it and call him with appointment tomorrow. [facility] 06-16-2024 Telephone encounter Note Lvm asking for a call back to schedule [facility] [facility] 06-15-2024 Telephone encounter Note Message released to patient as written. Patient's further questions if applicable: Marlon is inquiring if we have the records that we need and would like to discuss which location would be best for Mary to go to. They definitely would like to see Dr. Garcia. Please call Marlon at [phone]. Were all questions from office addressed or relayed to the patient from encounter: Yes [facility] 06-15-2024 Miscellaneous Notes Message released to patient as written. Patient's further questions if applicable: Marlon is inquiring if we have the records that we need and would like to discuss which location would be best for Mary to go to. They definitely would like to see Dr. Garcia. Please call Marlon at [phone]. Were all questions from office addressed or relayed to the patient from encounter: Yes LVM for patient to ask if she would prefer [place] or [place]. If she chooses [place], she will need appt, UGI and poss Financial Counseling , if [place] will only need appt with Dr Garcia. Will have to get records also prior to appt. Will try to call patient back tomorrow. DP Pt called and wants to make an appointment to be seen for a HH and Gerd symptoms. 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 She has symptoms of indigestion with heavy foods and cannot lay flat. Also, c/o trouble swallowing especially meat. She is not only any meds for this. documented in this encounter [facility] 06-13-2024 Telephone encounter Note LVM for patient to ask if she would prefer [place] or [place]. If she chooses [place], she will need appt, UGI and poss Financial Counseling , if [place] will only need appt with Dr Garcia. Will have to get records also prior to appt. Will try to call patient back tomorrow. DP [facility] 06-13-2024 Telephone encounter Note Pt called and wants to make an appointment to be seen for a HH and Gerd symptoms. 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 She has symptoms of indigestion with heavy foods and cannot lay flat. Also, c/o trouble swallowing especially meat. She is not only any meds for this. [facility] 07-16-2023 History of Present illness Narrative Mary Cook is a 43 y.o. female who has been referred by Dr Juventino Yin for evaluation for patent foramen ovalve (PFO) closure due to concern for paradoxical embolization and stroke. 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 In summary, the patient went to [place] (by train with travel time 48 hours) to undergo an EGD 06/2022, which demonstrated a hiatal hernia per family. While in [place], she underwent various remedies including vitamin C infusion, hyperbaric oxygen, among others, for circulation. At one point, the patient was sitting in a chair and getting an IV, then prior to initiation of a therapy, developed cardiac arrest undergoing CPR achieving ROSC after 3-4 rounds per report. She did not undergo defibrillations. She was transferred to the [facility] intubated. Cardiac catheterization 07/2022 with mild disease. MONSTER 07/2022 with PFO and normal LVEF. Per medical records, MRI brain 07/11/22 several foci suggestive of emboli infarcts; CTA neck no obvious stenosis; CT chest multiple bilateral pulmonary emboli. Patient was discharged 07/19/22. She saw Pulmonary 08/2022 that found DVT on venous Duplex 08/14/22 and apixaban was continued. To note, LE venous Duplex 07/14/22 without DVT. Followed up with Dr Yin locally 09/2022. It was reported that had minimal left sided weakness. Due to concern for paradoxical embolization via PFO resulting in stroke, patient was referred to our clinic for PFO closure evaluation. Per patient completed therapy for Lyme disease. Patient was weaned off prednisone by [facility]. Patient returns to our clinic to discuss PFO closure. She was last seen in our clinic on 11/13/22 Past Medical History: - patent foramen ovale (PFO) - coronary artery disease - pulmonary embolus 07/2022 - cardiac arrest 07/2022 - DVT 08/2022 - stroke (MRI Brain 07/11/22 several foci suggestive of emboli infarcts) - mixed connective tissue disease (chronic prednisone therapy) - rheumatoid arthritis - Sjogren s disease - rheumatic fever - Lyme disease Past Social History: Social History Tobacco Use Smoking status: Never Smokeless tobacco: Never Vaping Use Vaping status: Never Used Substance Use Topics Alcohol use: Never Drug use: Never Past Family History: No family history of thrombosis No Known Allergies Current Outpatient Medications Medication Sig Dispense Refill Eliquis 5 MG tablet Take 1 tablet by mouth 2 times daily. atovaquone 750 MG/5ML Suspension oral suspension Start with 1/2 teaspoon by mouth once daily with a high fat food. Gradually increase dose until you are taking 1 teaspoon twice daily (Patient not taking: Reported on 07/16/2023) cefUROXime 500 MG tablet Take 1 tablet by mouth 2 times daily. (Patient not taking: Reported on 07/16/2023) faMOTIdine 20 MG tablet Take one tablet by mouth daily as needed for stomach pain or indigestion (Patient not taking: Reported on 07/16/2023) minocycline 50 MG capsule TAKE ONE CAPSULE BY MOUTH EVERY DAY FOR FOURTEEN DAYS THEN increase TO TAKE ONE CAPSULE TWICE DAILY (Patient not taking: Reported on 07/16/2023) Tinidazole 250 MG tablet TAKE ONE TABLET (250mg) BY MOUTH TWICE DAILY with cefuroxime (Patient not taking: Reported on 07/16/2023) No current facility-administered medications for this visit. Review of Systems (ROS): ROS reviewed and negative unless otherwise stated. Physical Exam: Blood pressure 100/62, pulse 69, height 1.651 m (5' 5), weight 62.3 kg (137 lb 4.8 oz), SpO2 93%. Gen - well nourished; alert and orientated x 3, mood normal Head & Neck- normocephalic; no JVD Lungs- clear to auscultation bilateral without rales, rhonchi, wheezing CV- RRR without murmurs, gallops, rubs Abd- non-tender; non-distended; soft Neuro- CN III-XII intact, decrease left hand fine motor Extr- no edema bilateral; warm distal extremities Skin- no facial rashes ECG 09/08/22 (scanned) in which I personally reviewed demonstrating sinus rhythm and non-specific t-wave changes MRI Brain: 07/11/22 (per medical records) - several foci suggestive of emboli infarcts - chronic lacunary infarct vs prominent perivascular space at the right basal ganglia Cardiac Catheterization: 07/17/22 (outside) - LVEDP 8-10 mmHg - mild disease Transthoracic Echocardiogram: 05/20/22 (scanned) - LVEF 60% - normal LV and RV size - normal RV systolic function - normal LA and RA size - mild TR - RVSP 30 mmHg Transthoracic Echocardiogram: 07/09/22 (scanned) - LVEF 55-60% - RV grossly normal - no significant valvular disease Transesophageal Echocardiogram ([facility]STER): 07/15/22 (scanned) - LVEF 55-60% - RV size and systolic normal - LA size normal, no thrombus in FADI - RA size normal - PFO with bidirectional shunt Assessment and Plan: Mary Cook is a 43 y.o. female who has been referred by Dr Juventino Yin for evaluation for patent foramen ovalve (PFO) closure due to concern for paradoxical embolization and stroke. Patent foramen ovale (PFO) and concern for paradoxical embolization and stroke: In summary, the patient went to [place] (by train with travel time 48 hours) to undergo an EGD 06/2022, which demonstrated a hiatal hernia per family. While in [place], she underwent various remedies including vitamin C infusion, hyperbaric oxygen, among others, for circulation. At one point, the patient was sitting in a chair and getting an IV, then prior to initiation of a therapy, developed cardiac arrest undergoing CPR achieving ROSC after 3-4 rounds per report. She did not undergo defibrillations. She was transferred to the [facility] intubated. Cardiac catheterization 07/2022 with mild disease. MONSTER 07/2022 with PFO and normal LVEF. Per medical records, MRI brain 07/11/22 several foci suggestive of emboli infarcts; CTA neck no obvious stenosis; CT chest multiple bilateral pulmonary emboli. Patient was discharged 07/19/22. She saw Pulmonary 08/2022 that found DVT on Venous Duplex 08/14/22 and apixaban was continued. To note, LE venous Duplex 07/14/22 without DVT. Followed up with Dr Yin locally 09/2022 and due to concern for paradoxical embolization via PFO resulting in stroke, patient was referred to our clinic for PFO closure evaluation. Discussed with patient, as did last visit, risks/benefits in PFO transcatheter closure. Discussed with patient limited data for PFO closure in addition to oral anti-coagulation (OAC), though cannot exclude OAC failure or interruption. If event was related to prolonged travel and/or cardiac arrest, then provoked, and not clear on recurrence. Patient has deferred PFO closure. Discharge from clinic and follow with primary care provider. documented in this encounter [facility] 05-18-2023 Instructions Etta Lo RN - 05/18/2023 11:[address] Ledesma Nurse- DANILO Quiles Any questions or concerns please call [phone] THANK YOU FOR VISITING [facility]! documented in this encounter [facility] 05-18-2023 History of Present illness Narrative OFFICE CONSULTATION NOTE [facility] [address] ([address]) [facility] [address] [facility] [id number] Physicians: Roc Mcnamara MD (Family); Roc Mcnamara* (Referring) Subjective: Mary Cook is a 43 y.o. female seen in the office today for Establish Care (Per Dr. Roc Mcnamara for chest pain) . HPI patient here for second opinion. Her chest pains is a known issue and seems to have responded to prednisone therapy. That was her prior sending symptoms and ameliorated with starting a prednisone and tends to recur when weaning off prednisone is attempted pain is is not related to her having a PFO Her PFO was discovered when she developed pulmonary embolus and cardiac arrest after a long train ride to [place] for EGD. She subsequently had catheterization which showed mild LAD disease and normal LV function there is no peripheral venous disease noted There question is about PFO closure which her tape sewer in [place] seem to favor conservative therapy with continuance of Eliquis. He stated that he would not perform the closure while she was on steroids and immune suppressive therapy. So far she has done well on this mode of treatment. They are pursuing homeopathic therapy specifically ozone infusion. Cardiac catheterization 07/2022 with mild LAD disease. MONSTER 07/2022 with PFO and normal LVEF.MRI brain 07/11/22 several foci suggestive of emboli infarcts; Assessment/Plan pulmonary embolus so far doing well on apixaban. I favor conservative therapy. So far she is passed the test of time I think waiting to see if she had another episode reconsider PFO closure seems reasonable. Her chest pain is not related to her PFO No problem-specific Assessment & Plan notes found for this encounter. Follow Up Ordered: No follow-ups on file. Patient's Medications New Prescriptions No medications on file Previous Medications APIXABAN 5 MG TAB Take 1 (one) tablet (5 mg total) by mouth 2 (two) times a day . PREDNISONE (DELTASONE) 1 MG TABLET Take 6 (six) tablets (6 mg total) by mouth daily . Modified Medications No medications on file Discontinued Medications No medications on file Histories: Past Medical History: Diagnosis Date Lupus (HCC) Lyme disease PFO (patent foramen ovale) Sjogren's disease (HCC) Past Surgical History: Procedure Laterality Date SECTION TUBAL LIGATION No family history on file. Social History Tobacco Use Smoking status: Never Smokeless tobacco: Never Substance Use Topics Alcohol use: Never Drug use: Never No Known Allergies Review of Systems Constitutional: Negative. HENT: Negative. Eyes: Negative. Cardiovascular: Negative for palpitations. Respiratory: Negative. Endocrine: Negative. Skin: Negative. Musculoskeletal: Negative. Gastrointestinal: Negative. Genitourinary: Negative. Neurological: Negative. Psychiatric/Behavioral: Negative. All other systems reviewed and are negative. Overview of Problems Addressed: No problems updated. Objective: Vitals: There were no vitals taken for this visit. Physical Exam Constitutional: Appearance: Normal appearance. HENT: Head: Normocephalic and atraumatic. Nose: Nose normal. Eyes: Extraocular Movements: Extraocular movements intact. Pupils: Pupils are equal, round, and reactive to light. Cardiovascular: Rate and Rhythm: Normal rate and regular rhythm. Pulses: Normal pulses. Heart sounds: Normal heart sounds. Pulmonary: Effort: Pulmonary effort is normal. Breath sounds: Normal breath sounds. Abdominal: General: Abdomen is flat. Bowel sounds are normal. Palpations: Abdomen is soft. Musculoskeletal: General: Normal range of motion. Cervical back: Normal range of motion and neck supple. Skin: General: Skin is warm and dry. Neurological: General: No focal deficit present. Mental Status: She is alert and oriented to person, place, and time. Mental status is at baseline. 1. PFO (patent foramen ovale) 2. Chest pain, unspecified type Hu Ledesma MD 05/18/2023 documented in this encounter [facility] 04-29-2023 History of Present illness Narrative Patient states she is being seen and treated at the [facility] in [place]. Pt has been diagnosed with Lyme's disease with deficiency in copper, Zinc, Vitamin D ect... Patient states she will get infusions weekly for 5 days in a row for at least 3 weeks if not more. Her main symptoms include fatigue, muscle and joint pain. Patient is on STC to get PICC line placed. documented in this encounter [facility] 04-29-2023 Consult note Formatting of th is note might be different from the original. IV team consulted for PICC placement. Chart and History reviewed. PICC insertion explained to patient. Agreed to procedure. Single lumen PICC inserted following universal protocol into basilic vein. PICC trimmed at 40cm. External length at 1cm. Patient tolerated well. PICC okay to use as tip is confirmed in lower SVC per ECG technology - maximum P wave and absence of negative deflection. Invasive Line Insertion Checklist followed. Flushes easily with good blood return. RN notified OK to use. [facility] 04-29-2023 Consult note Formatting of th is note might be different from the original. IV team consulted for PICC placement. Chart and History reviewed. PICC insertion explained to patient. Agreed to procedure. Single lumen PICC inserted following universal protocol into basilic vein. PICC trimmed at 40cm. External length at 1cm. Patient tolerated well. PICC okay to use as tip is confirmed in lower SVC per ECG technology - maximum P wave and absence of negative deflection. Invasive Line Insertion Checklist followed. Flushes easily with good blood return. RN notified OK to use. documented in this encounter [facility] 11-13-2022 History of Present illness Narrative Mary Cook is a 42 y.o. female who has been referred by Dr Juventino Yin for evaluation for patent foramen ovalve (PFO) closure due to concern for paradoxical embolization and stroke. 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 Patient went to [place] (by train with travel time 48 hours) to undergo an EGD 06/2022, which demonstrated a hiatal hernia per family. While in [place], she underwent various remedies including vitamin C infusion, hyperbaric oxygen, among others, for circulation. At one point, the patient was sitting in a chair and getting an IV, then prior to initiation of a therapy, developed cardiac arrest undergoing CPR achieving ROSC after 3-4 rounds per report. She did not undergo defibrillations. She was transferred to the [facility] intubated. Cardiac catheterization 07/2022 with mild disease. MONSTER 07/2022 with PFO and normal LVEF. Per medical records, MRI brain 07/11/22 several foci suggestive of emboli infarcts; CTA neck no obvious stenosis; CT chest multiple bilateral pulmonary emboli. Patient was discharged 07/19/22. She saw Pulmonary 08/2022 that found DVT on Venous Duplex 08/14/22 and apixaban was continued. To note, LE venous Duplex 07/14/22 without DVT. Followed up with Dr Yin locally 09/2022. It was reported that had minimal left sided weakness. Due to concern for paradoxical embolization via PFO resulting in stroke, patient was referred to our clinic for PFO closure evaluation. Pleuritic chest pain. Some dyspnea with exertion. Patient does not experience angina, LE edema, orthopnea, PND, lightheadedness, syncope or palpitations. Past Medical History: - patent foramen ovale (PFO) - coronary artery disease - pulmonary embolus 07/2022 - cardiac arrest 07/2022 - DVT 08/2022 - stroke (MRI Brain 07/11/22 several foci suggestive of emboli infarcts) - mixed connective tissue disease (chronic prednisone therapy) - rheumatoid arthritis - Sjogren s disease - rheumatic fever - Lyme disease Past Social History: Social History Tobacco Use Smoking status: Never Smokeless tobacco: Never Vaping Use Vaping Use: Never used Substance Use Topics Alcohol use: Never Drug use: Never Past Family History: No family history of thrombosis No Known Allergies Current Outpatient Medications Medication Sig Dispense Refill atovaquone 750 MG/5ML Suspension oral suspension Start with 1/2 teaspoon by mouth once daily with a high fat food. Gradually increase dose until you are taking 1 teaspoon twice daily cefUROXime 500 MG tablet Take 1 tablet by mouth 2 times daily. Eliquis 5 MG tablet Take 1 tablet by mouth 2 times daily. faMOTIdine 20 MG tablet Take one tablet by mouth daily as needed for stomach pain or indigestion minocycline 50 MG capsule TAKE ONE CAPSULE BY MOUTH EVERY DAY FOR FOURTEEN DAYS THEN increase TO TAKE ONE CAPSULE TWICE DAILY Tinidazole 250 MG tablet TAKE ONE TABLET (250mg) BY MOUTH TWICE DAILY with cefuroxime No current facility-administered medications for this visit. Review of Systems (ROS): Full ROS reviewed and negative unless otherwise stated. Physical Exam: Blood pressure 110/60, pulse 91, height 1.676 m (5' 6), weight 63.7 kg (140 lb 6.4 oz), SpO2 97 %. Gen - well nourished; alert and orientated x 3, mood normal Head & Neck- normocephalic; no JVD Lungs- clear to auscultation bilateral without rales, rhonchi, wheezing; good air movement bilateral; no use of accessory muscles CV- RRR without murmurs, gallops, rubs Abd- non-tender; non-distended; soft; +BS; no rebound/guarding Neuro- CN III-XII intact, left arm/leg weakness Extr- no edema bilateral; warm distal extremities Skin- no facial rashes ECG 09/08/22 (scanned) in which I personally reviewed demonstrating sinus rhythm and non-specific t-wave changes MRI Brain: 07/11/22 (per medical records) - several foci suggestive of emboli infarcts - chronic lacunary infarct vs prominent perivascular space at the right basal ganglia Cardiac Catheterization: 07/17/22 (outside) - LVEDP 8-10 mmHg - mild disease Transthoracic Echocardiogram: 05/20/22 (scanned) - LVEF 60% - normal LV and RV size - normal RV systolic function - normal LA and RA size - mild TR - RVSP 30 mmHg Transthoracic Echocardiogram: 07/09/22 (scanned) - LVEF 55-60% - RV grossly normal - no significant valvular disease Transesophageal Echocardiogram ([facility]): 07/15/22 (scanned) - LVEF 55-60% - RV size and systolic normal - LA size normal, no thrombus in FADI - RA size normal - PFO with bidirectional shunt Assessment and Plan: Mary Cook is a 42 y.o. female who has been referred by Dr Juventino Yin for evaluation for patent foramen ovalve (PFO) closure due to concern for paradoxical embolization and stroke. Patent foramen ovale (PFO) and concern for paradoxical embolization and stroke: Patient went to [place] (by train with travel time 48 hours) to undergo an EGD 06/2022, which demonstrated a hiatal hernia per family. While in [place], she underwent various remedies including vitamin C infusion, hyperbaric oxygen, among others, for circulation. At one point, the patient was sitting in a chair and getting an IV, then prior to initiation of a therapy, developed cardiac arrest undergoing CPR achieving ROSC after 3-4 rounds per report. She did not undergo defibrillations. She was transferred to the [facility] intubated. Cardiac catheterization 07/2022 with mild disease. MONSTER 07/2022 with PFO and normal LVEF. Per medical records, MRI brain 07/11/22 several foci suggestive of emboli infarcts; CTA neck no obvious stenosis; CT chest multiple bilateral pulmonary emboli. Patient was discharged 07/19/22. She saw Pulmonary 08/2022 that found DVT on Venous Duplex 08/14/22 and apixaban was continued. To note, LE venous Duplex 07/14/22 without DVT. Followed up with Dr Yin locally 09/2022 and due to concern for paradoxical embolization via PFO resulting in stroke, patient was referred to our clinic for PFO closure evaluation. I discussed with the patient at length risks/benefits in PFO transcatheter closure including increase risk of infection due to chronic prednisone use. In addition, patient is currently on antibiotics for possible Lyme disease. In addition, discussed that she is currently on therapy for DVT, and limited data for PFO closure in addition to oral anti-coagulation (OAC), though cannot exclude OAC failure or interruption. At this stage, patient opted to finish antibiotics and follow-up with Pulmonary to determine duration of OAC. If event was related to prolonged travel and/or cardiac arrest, then provoked, and not clear on recurrence. Patient to follow-up in clinic once above completed. documented in this encounter [facility] Evaluation note Diagnosis Onset Date Polyarthralgia acute Immunization declined noneac tive Establishing care with rafael hunter, encounter for noneactive Shortness of breath noneacti ve Pleuritic chest pain noneact mike Mammogram declined noneactiv e Multiple lung nodules noneac tive Left sided abdominal pain no neactive [facility] Work Phone: Evaluation note* Diagnosis Onset Date Resolution Status Polyarthralgia acute Immunization declined noneac tive Establishing care with new doctor, encounter for noneactive Shortness of breath noneacti ve Pleuritic chest pain noneact mike Mammogram declined noneactiv e Multiple lung nodules noneac tive Left sided abdominal pain no neactive Right upper quadrant pain no neactive Pleuritic chest pain noneact mike Autoimmune disease noneactiv e Multiple lung nodules noneac tive Left sided abdominal pain no neactive [facility] Work Phone: Evaluation note* Diagnosis Onset Date Resolution Status Polyarthralgia acute Immunization declined noneac tive Establishing care with new doctor, encounter for noneactive Shortness of breath noneacti ve Pleuritic chest pain noneact mike Mammogram declined noneactiv e Multiple lung nodules noneac tive Left sided abdominal pain no neactive Right upper quadrant pain no neactive Pleuritic chest pain noneact mike Autoimmune disease noneactiv e Multiple lung nodules noneac tive Left sided abdominal pain no neactive Pleuritic chest pain noneact mike Generalized abdominal pain n oneactive Autoimmune disease noneactiv e Multiple lung nodules noneac tive [facility] Work Phone: Evaluation note* Diagnosis PFO (patent foramen ovale)- Primary Ostium secundum type atrial septal defect Cerebrovascular accident (CVA), unspecified mechanism [facility] Diagnosis PFO (patent foramen ovale)- Primary Ostium secundum type atrial septal defect Chest pain, unspecified type documented in this encounter [facility] note* Diagnosis S/P PICC central line placement- Primary Other postprocedural status Needs peripherally inserted central catheter (PICC) Fitting and adjustment of vascular catheter documented in this encounter [facility] note* Diagnosis PFO (patent foramen ovale) Ostium secundum type atrial septal defect Chest pain, unspecified type documented in this encounter [facility] note* Diagnosis Dysphagia, unspecified type- Primary Indigestion Dyspepsia and other specified disorders of function of stomach History of repair of hiatal hernia documented in this encounter [facility] note* Diagnosis Dysphagia, unspecified type- Primary Indigestion Dyspepsia and other specified disorders of function of stomach History of repair of hiatal hernia documented in this encounter [facility] note* Diagnosis Chest pain, unspecified type- Primary SOB (shortness of breath) Shortness of breath PFO (patent foramen ovale) Ostium secundum type atrial septal defect History of CVA (cerebrovascular accident) Transient ischemic attack (TIA), and cerebral infarction without residual deficits documented in this encounter [facility] note* Diagnosis Dysphagia, unspecified type Indigestion Dyspepsia and other specified disorders of function of stomach History of repair of hiatal hernia documented in this encounter [facility] noteNo assessment information availableWCleveland [facility] Work Phone: Reason for referral (narrative)No reason for referral information availableWCleveland Clinic [facility] Work Phone: Summary Purpose Family History No Family History Records Found Relationship Condition Age at Onset Recorded Date/T judith father Cardiac disease Unknown grandfather Myocardial infarction Unknown grandmother Asthma Unknown brother Asthma Unknown sister Asthma Unknown Malignant neoplasm of uterus Unknown Relationship Condition Age at Onset Recorded Date/T judith father Cardiac disease Unknown grandfather Myocardial infarction Unknown grandmother Asthma Unknown brother Asthma Unknown sister Asthma Unknown Malignant neoplasm of uterus Unknown mother Hypertension Unknown Advance Directives No Advanced Directives Records Found Advance Directive Response Recorded Date/ Time Living Will No October 05, 2020 1 1:36am 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 of 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 Applications 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 No October 05, 2020 11:36am Chief Complaint and Reason for Visit Chief Complaint 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, EST CARE NEEDS P PW Pleurodynia Reason for Visit Polyarthralgia Immunization declined Establishing care with new doctor, encounter for Shortness of breath Pleuritic chest pain Mammogram declined Multiple lung nodules Left sided abdominal pain Chief Complaint 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, EST CARE NEEDS P PW Pleurodynia GALLBLADDER CONCERNS Reason for Visit Polyarthralgia Immunization declined Establishing care with new doctor, encounter for Shortness of breath Pleuritic chest pain Mammogram declined Multiple lung nodules Left sided abdominal pain Right upper quadrant pain Pleuritic chest pain Autoimmune disease Multiple lung nodules Left sided abdominal pain Chief Complaint 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, EST CARE NEEDS P PW Pleurodynia GALLBLADDER CONCERNS RUQ PAIN Reason for Visit Polyarthralgia Immunization declined Establishing care with new doctor, encounter for Shortness of breath Pleuritic chest pain Mammogram declined Multiple lung nodules Left sided abdominal pain Right upper quadrant pain Pleuritic chest pain Autoimmune disease Multiple lung nodules Left sided abdominal pain Chief Complaint 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, EST CARE NEEDS P PW Pleurodynia GALLBLADDER CONCERNS RUQ PAIN DISCUSS HIATAL HERNIA Reason for Visit Polyarthralgia Immunization declined Establishing care with new doctor, encounter for Shortness of breath Pleuritic chest pain Mammogram declined Multiple lung nodules Left sided abdominal pain Right upper quadrant pain Pleuritic chest pain Autoimmune disease Multiple lung nodules Left sided abdominal pain Pleuritic chest pain Generalized abdominal pain Autoimmune disease Multiple lung nodules Chief Complaint 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, EST CARE 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 P PW Pleurodynia GALLBLADDER CONCERNS RUQ PAIN DISCUSS HIATAL HERNIA AVISE Reason for Visit Polyarthralgia Immunization declined Establishing care with new doctor, encounter for Shortness of breath Pleuritic chest pain Mammogram declined Multiple lung nodules Left sided abdominal pain Right upper quadrant pain Pleuritic chest pain Autoimmune disease Multiple lung nodules Left sided abdominal pain Pleuritic chest pain Generalized abdominal pain Autoimmune disease Multiple lung nodules Chief Complaint 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, EST CARE NEEDS P PW Pleurodynia GALLBLADDER CONCERNS RUQ PAIN DISCUSS HIATAL HERNIA AVISE SOB Reason for Visit Polyarthralgia Immunization declined Establishing care with new doctor, encounter for Shortness of breath Pleuritic chest pain Mammogram declined Multiple lung nodules Left sided abdominal pain Right upper quadrant pain Pleuritic chest pain Autoimmune disease Multiple lung nodules Left sided abdominal pain Pleuritic chest pain Generalized abdominal pain Autoimmune disease Multiple lung nodules Chief Complaint Admit Date LABSPEC FROM MAIN July 25, 2024 3:2 0pm Reason for Referral Specialty Diagnoses / Procedures Referred By Randolph t Referred To Contact Cardiology Diagnoses PFO (patent foramen ovale) Chest pain, unspecified type Roc Mcnamara MD [address] [place] [address] [facility] Revadesmond Cordero [address] [place] [address] Referral ID Status Reason Start Date Expiration Date V isits Requested Visits Authorized [id number] Pending Review 04/24/2023 04/23/2024 1 1 Additional Source Comments INFORMATION SOURCE (unrecogn ized section and content) DATE CREATED AUTHOR 10/31/2018 [facility] ([place]) DATE CREATED AUTHOR AUTHOR'S ORGANIZ ATION [facility]02[facility]2023 [facility] DATE CREATED AUTHOR AUTHOR'S ORGANIZ ATION 06/13/2023 [facility] DATE CREATED AUTHOR AUTHOR'S ORGANIZ ATION 07/17/2023 [facility] DATE CREATED AUTHOR AUTHOR'S ORGANIZ ATION 05/04/2024 [facility] DATE CREATED AUTHOR AUTHOR'S ORGANIZ ATION 07/22/2024 [facility] DATE CREATED AUTHOR AUTHOR'S ORGANIZ ATION 10/11/2024 [facility] Hospital Goals (unrecognized section and content) Goals may be documented in a n alternate sectionGoals may be documented in an alternate sectionGoals may be documented in an alternate sectionGoals may be documented in an alternate sectionGoals may be documented in an alternate sectionGoals may be documented in an alternate sectionGoals may be documented in an alternate sectionGoals may be documented in an alternate section Care Teams (unrecognized sec tion and content) Team Status: Active Member Role Status Dates Dr. Sharron Manning MD Primary Care Provider Active Team Status: Inactive Member Role Status Dates Dr. Wai Clemens MD Primary Care Provider, Referring Provider Active Dr. Sharron Manning MD Attending Provider Active Team Status: Inactive Member Role Status Dates Dr. Sharron Manning MD Primary Care Pro vider, Attending Provider, Referring Provider Active Team Status: Active Member Role Status Dates Dr. Sharron Manning MD Primary Care Provider Active Dr. Juventino Yin MD Attending Provider Active Team Status: Inactive Member Role Status Dates Dr. Wai Clemens MD Primary Care Provider Active Dr. Sharron Manning MD Attending Provider Active Team Status: Inactive Member Role Status Dates Dr. Sharron Manning MD Primary Care Provider Active Dr. Evita Sanchez MD Attending Provider, Referring Provider Active Team Status: Inactive Member Role Status Dates Dr. Sharron Manning MD Primary Care Provider Active Dr. Evita Sanchez MD Attending Provider Active Studio Operation Engineer Relationship Specialty Start Date End Date Charito Monet CNP [address] [id number] PCP - General Nurse Practitioner - [facility] 11/13/22 Studio Operation Engineer Relationship Specialty Start Date End Date Roc Mcnamara MD [address] [place] [id number] PCP - General Internal Medicine 04/24/23 Studio Operation Engineer Relationship Specialty Start Date End Date Roc Mcnamara MD [address] [place] [id number] PCP - General Internal Medicine 04/24/23 Studio Operation Engineer Relationship Specialty Start Date End Date Charito Monet APRN - WALLPAPER INSPECTOR AND SHIPPER [address] [place] [address] PCP - General Gynecologic Oncology 06/13/24 Studio Operation Engineer Relationship Specialty Start Date End Date Charito Monet APRN - WALLPAPER INSPECTOR AND SHIPPER [address] [place] [address] PCP - General Gynecologic Oncology 06/13/24 Studio Operation Engineer Relationship Specialty Start Date End Date Charito Monet APRN - WALLPAPER INSPECTOR AND SHIPPER [address] [place] [address] PCP - General Gynecologic Oncology 06/13/24 Studio Operation Engineer Relationship Specialty Start Date End Date Charito Monet APRN - CNP [address] [place] [address] PCP - General Gynecologic Oncology 06/13/24 Studio Operation Engineer Relationship Specialty Start Date End Date Charito Monet APRN - CNP [address] [place] [address] PCP - General Gynecologic Oncology 06/13/24 Studio Operation Engineer Relationship Specialty Start Date End Date Charito Monet APRN - CNP [address] [place] [address] PCP - General Gynecologic Oncology 06/13/24 Team Status: Active Member Role Status Dates Charito Monet NP, 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-C Primary Care Provider Activ e Team Status: Active Member Role Status Dates Charito Monet NP, 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-C Primary Care Provider Activ e Start: April 18, 2024 Charito Monet NP, 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-C Attending Provider Active Start: April 18, 2024 Team Status: Active Member Role Status Dates Charito Monet NP, 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-C Primary Care Provider Activ e Start: July 25, 2024 Charito Monet NP, 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-C Attending Provider Active Start: July 25, 2024 Charito Monet NP, 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-C Referring Provider Active Start: July 25, 2024 Team Status: Inactive Member Role Status Dates Charito Monet NP, 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-C Primary Care Provider Activ e Start: August 11, 2024 End: August 11, 2024 JENNIE FRANK Attending Provider Active St art: August 11, 2024 End: August 11, 2024 JENNIE FRANK Referring Provider Active St art: August 11, 2024 End: August 11, 2024 Reason for Visit (unrecogniz ed section and content) Reason Comments Shortness of Breath New patient appt. Sh e states she gets occasional chest pain when lying down and frequent SOB. Specialty Diagnoses / Procedures Referred By Randolph t Referred To Contact Cardiovascular Medicine Diagnoses Cerebral infarction, unspecified mechanism Patent foramen ovale Juventino Yin MD [address] [place] [address] [facility] [address] [place] [address] Referral ID Status Reason Start Date Expiration Date V isits Requested Visits Authorized [id number] New Request 09/15/2022 10/10/2023 1 1 Reason Comments Vascular Access Problem Reason Comments Establish Care Per Dr. Roc avina for second opinion Specialty Diagnoses / Procedures Referred By Contac t Referred To Contact Cardiology Diagnoses PFO (patent foramen ovale) Chest pain, unspecified type Roc Mcnamara MD [address] [place] [address] [facility] [address] [facility] [place] [address] Referral ID Status Reason Start Date Expiration Date V isits Requested Visits Authorized [id number] Pending Review 04/24/2023 04/23/2024 1 1 Reason Comments Follow-up Eval for PFO closure Heart Problem States CP is improve d from last visit; rates it as 08/18 Reason Onset Date Comments Other 06/13/2024 Reason Comments New Patient ALS 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 referral Hiat al Hernia Charito Monet Specialty Diagnoses / Procedures Referred By Contac t Referred To Contact General Surgery Diagnoses Diaphragmatic hernia without obstruction or gangrene Procedures CT ELECTIVE SURGERY Charito Monet, APPLICATION RELEASE MANAGER - WALLPAPER INSPECTOR AND SHIPPER [address] [place] [address] Phone: tel: fax: Antoine Garcia MD [address] [place] [address] [address] [place] [address] Phone: tel: fax: Referral ID Status Reason Start Date Expiration Date Visits Re quested Visits Authorized [id number] Closed 06/23/2024 06/24/2025 1 1 FOR RECORDS PERTAINING TO PATIENTS WHO ARE OR HAVE BEEN ENROLLED IN A CHEMICAL DEPENDENCY/SUBSTANCEABUSE PROGRAM, SOME INFORMATION MAY BE OMITTED. This clinical summary was aggregated from multiple sources. Caution should be exercised in using it in the provision of clinical care. This summary normalizes information from multiple sources, and as a consequence, information in this document may materially change the coding, format and clinical context of patient data. In addition, data may be omitted in some cases. CLINICAL DECISIONS SHOULD BE BASED ON THE PRIMARY CLINICAL RECORDS. [facility] [employer] [facility]. provides no warranty or guarantee of the accuracy or completeness of information in this document.
--- NOTE | 2024-10-12 07:55 | RAD_ITS ---
PROCEDURE: CHEST PA AND LATERAL 10/12/2024 REASON FOR EXAM: S/P PNA TECHNIQUE: Frontal and lateral views of the chest. COMPARISON: Chest radiographs 08/11/2024, CT chest on 03/24/2022 FINDINGS: Hardware: None Heart: The heart size is normal. Mediastinum: The mediastinal contour is stable. Lungs: Patchy opacities and reticulations at the lung bases are unchanged from 08/11/2024. Bones: The bones are unremarkable. RAD/Chest PA and Lateral IMPRESSION: No significant interval change from the radiographs on 08/11/2024. Persistent patchy opacities and reticulations may reflect the known chronic lung abnormalities. Reading Location: [id number]
[2024-10-12 08:58] LABS: Absolute Lymphocyte Count 0.34 X10^3/uL (0.83-4.51); Absolute Neutrophil Count 2.4 X10^3/uL (2.0-7.7); Eosinophils% 3.3 % (0-5); Hematocrit 28.6 % (37-47); Hemoglobin 8.7 g/dL (12.0-15.0); Lymphocyte # 0.34 X10^3/ul (0.83-4.51); Lymphocyte % 11.4 % (19-41); Mean Corp Hgb Conc 30.4 g/dL (32-36); Mean Corpuscular Hgb 25.1 pg (27.0-32.0); Mean Corpuscular Volume 82.4 fL (81-99); Mean Platelet Vol. 9.1 fl (6.2-12.0); Monocyte# 0.17 X10^3/uL; Monocyte% 5.7 % (0-10); NRBC Flagged by Analyzer 0 % (0-5); Neutrophil # 2.37 X10^3/uL (2.7-7.7); Neutrophil % 79.3 % (47-70); POSITIVE DIFFERENTIAL YES; Platelet Count 399 K/mm3 (150-450); RBC Distribution Width CV 18.5 % (11.6-14.6); RBC Distribution Width SD 51.5 fl (35.1-43.9); Red Blood Count 3.47 M/mm3 (4.2-5.4)
[2024-10-12 09:03] LABS: International Normalized Ratio 1.2; Prothrombin Time (Protime)PT. 15.5 SECONDS (11.7-14.9)
[2024-10-12 09:06] LABS: Differential Indicated SCAN CRITERIA MET
[2024-10-12 09:58] LABS: Anion Gap 9 (5-15); BUN 12 mg/dL (4-19); BUN/Creat Ratio 16.4 RATIO (10-20); Calcium,Total 9.2 mg/dL (7.6-11.0); Carbon Dioxide 25.5 mmol/L (21.0-32.0); Chloride 103 mmol/L (98-108); Creatinine, Serum 0.75 mg/dL (0.70-1.20); EST Glomerular Filtration Rate 101 (>60); Glucose 89 mg/dL (70-99); Potassium 4.4 mmol/L (3.3-5.1); Sodium Level 137 mmol/L (133-145)
== END | disposition home or self-care (01) ==
PROVIDERS: PCP Nurse Practitioner Family
DX: Z01.812 Encounter for preprocedural laboratory examination (principal); J18.9 Pneumonia, unspecified organism
CPT/HCPCS: 36415; 71046; 80048; 85025; 85610